=== PATIENT | male | born 1960 | race Caucasian/White ===

== ENCOUNTER → 2019-07-14 10:30 | Outpatient (BNVA) | payer MEDICARE, MEDICAID, SELFPAY | PROVIDERS: Family Provider Nurse Practitioner Family; PCP Nurse Practitioner Family; Visit Provider Nurse Practitioner | DX: M47.817 Spondylosis without myelopathy or radiculopathy, lumbosacral region (principal); M79.12 Myalgia of auxiliary muscles, head and neck; F17.210 Nicotine dependence, cigarettes, uncomplicated; Z79.891 Long term (current) use of opiate analgesic | CPT/HCPCS: 99213; 99214 ==

== ENCOUNTER → 2019-07-15 14:40 | Outpatient (BNVA) | payer MEDICARE, MEDICAID, SELFPAY | PROVIDERS: Family Provider Nurse Practitioner Family; PCP Nurse Practitioner Family; Visit Provider Otolaryngology | DX: J32.9 Chronic sinusitis, unspecified (principal); H93.13 Tinnitus, bilateral; H69.83 Other specified disorders of Eustachian tube, bilateral; J34.2 Deviated nasal septum; J34.3 Hypertrophy of nasal turbinates; H91.90 Unspecified hearing loss, unspecified ear; F17.210 Nicotine dependence, cigarettes, uncomplicated | CPT/HCPCS: 96372; 99214; J3301 ==

== ENCOUNTER → 2019-07-16 10:45 | Outpatient (BNVA) | payer MEDICARE, MEDICAID, SELFPAY | PROVIDERS: Family Provider Nurse Practitioner Family; PCP Nurse Practitioner Family; Visit Provider Nurse Practitioner Family | DX: I10 Essential (primary) hypertension (principal); K21.9 Gastro-esophageal reflux disease without esophagitis; F17.200 Nicotine dependence, unspecified, uncomplicated; J30.89 Other allergic rhinitis | CPT/HCPCS: 80053; 80061; 83721; 85025 ==

== ENCOUNTER 2019-08-18 10:31 | Outpatient (CLI) | payer MEDICARE, MEDICAID, SELFPAY ==
--- NOTE | 2019-08-18 10:15 | US_ITS ---
WS: [id number] ULTRASOUND SOFT TISSUES LEFT lower abdominal wall. HISTORY: LEFT LOWER QUAD PAIN, HERNIA COMPARISON: None available. TECHNIQUE: 2-D and color Doppler imaging is submitted. In the area of pain along the LEFT lower abdominal wall towards the inguinal canal is an area of part ially protruding bowel loop. There is peristalsis with a large amount shadowing and findings of GI tr act. There is peristalsis. There is only partial protrusion. Does not change with upright positioning . Diameter of the herniated bowel is 2.2 cm. US/US soft tissue/extremity 52023 IMPRESSION: 1. In the area of pain there is an abdominal wall defect with a partially prot ruding loop of bowel consistent with a hernia. The exact location is difficult to determine by ultrasound. This may be a lower abdominal wall hernia or inguin al canal hernia. 2. No GI tract obstruction or incarceration at this time.
== END 2019-08-18 10:32 | disposition home or self-care (01) ==
LOC: US 10:35
PROVIDERS: Family Provider Nurse Practitioner Family; PCP Nurse Practitioner Family; Visit Provider Nurse Practitioner Family
DX: K46.9 Unspecified abdominal hernia without obstruction or gangrene (principal); R10.32 Left lower quadrant pain; R10.814 Left lower quadrant abdominal tenderness
CPT/HCPCS: 76882

== ENCOUNTER → 2019-08-28 09:56 | Outpatient (BNVA) | payer MEDICARE, MEDICAID, SELFPAY | PROVIDERS: Family Provider Nurse Practitioner Family; PCP Nurse Practitioner Family; Visit Provider Nurse Practitioner | DX: B19.20 Unspecified viral hepatitis C without hepatic coma (principal) | CPT/HCPCS: 87522; 87902 ==

== ENCOUNTER → 2019-09-08 10:12 | Outpatient (BNVA) | payer MEDICARE, MEDICAID, SELFPAY | PROVIDERS: Family Provider Nurse Practitioner Family; PCP Nurse Practitioner Family; Visit Provider Anesthesiology | DX: Z76.89 Persons encountering health services in other specified circumstances (principal) ==

== ENCOUNTER 2019-11-03 16:19 | Emergency (ER) | payer MEDICARE, MEDICAID, SELFPAY ==
[2019-11-03 16:28] VITALS: BP 134/88; PULSE 71; RESP 16; TEMP 36.4; O2SAT 98; BMI 30.8
--- NOTE | 2019-11-03 17:01 | CTR_ITS ---
PROCEDURE INFORMATION: Exam: CT Abdomen And Pelvis With Contrast Exam date and time: 11/03/2019 5:15 PM Age: 59 years old Clinical indication: Other: Diarrhea/blood in stool; Abdominal pain; Localized; Left; Additional info: Abd pain TECHNIQUE: Imaging protocol: Computed tomography of the abdomen and pelvis with intravenous contrast. Radiation optimization: All CT scans at this facility use at least one of these dose optimization techniques: automated exposure control; mA and/or kV adjustment per patient size (includes targeted exams where dose is matched to clinical indication); or iterative reconstruction. Contrast material: OMNI 300; Contrast volume: 95 ml; Contrast route: IV; COMPARISON: CT Chest/Abdomen/Pelvis w IV* 07/28/2019 4:36 PM RADIATION DOSE METRICS: Total DLP: 1561.99 mGy-cm FINDINGS: Pleural space: There is a small right pleural effusion. Liver: Liver shows diffusely decreased density in keeping with fatty change. Gallbladder and bile ducts: The gallbladder is normal. Pancreas: The pancreas is normal. Spleen: The spleen is normal. Adrenals: The adrenal glands are normal. Kidneys and ureters: The kidneys are normal. There is no evidence of hydronephrosis. There is no evidence of renal or ureteral calcifications. Stomach and bowel: There is fluid seen through the length of the colon consistent with the history of diarrhea. There is mild mucosal thickening in the right colon and some haziness in the pericolonic fat especially around the hepatic flexure suggesting some nonspecific colitis. Correlation with clinical findings is suggested. Appendix: A normal appendix is identified. Intraperitoneal space: Unremarkable. No free air. No significant fluid collection. Vasculature: The aorta demonstrates mild atherosclerotic calcification. There is no evidence of an abdominal aortic aneurysm. Lymph nodes: Unremarkable. No enlarged lymph nodes. Bladder: Unremarkable as visualized. Reproductive: Unremarkable as visualized. Bones/joints: Unremarkable. No acute fracture. Soft tissues: Unremarkable. CT/CT abdomen pelvis w con* [id number] IMPRESSION: 1. Fatty liver 2. Mild colitis involving the right colon 3. Small right pleural effusion Radiation Dose CTDIVOL = (mGy): DLP = 1561.99 (mGy-cm)
--- NOTE | 2019-11-03 17:04 | ED_ITS ---
Documented by User: Obie Zaragoza DO 11/03/19 17:06 HPI - Abdominal Pain General: Chief Complaint: Abdominal Pain Stated Complaint: n/v/rectal bleeding Time Seen by Provider: 11/03/19 16:31 History of Present Illness: HPI narrative: Patient complains of left lower quadrant abdominal pain for several days. MD elicited complaint: abdominal pain Pertinent past history: diverticulitis and gastrointestinal bleeding Onset (ago): day(s) Pain Consistency: constant Location: LLQ Severity: severe Quality: stabbing, aching and sharp Radiation: none Migration to: no migration Exacerbating factors: movement Relieving factors: nothing Associated Symptoms: Reports diarrhea, nausea and vomiting Review of Systems General: Reports: 10 or more systems reviewed and unremarkable except in HPI and below GI: Reports: nausea, vomiting and diarrhea PFS ED PFSH: Medical History Anxiety Bilateral subjective nonpulsatile tinnitus without hearing loss, otoscopic find ing, neurologic deficit, or head trauma Chronic eustachian tube dysfunction Chronic neck and back pain COPD (chronic obstructive pulmonary disease) Encounter for long-term opiate analgesic use Environmental and seasonal allergies Essential hypertension Facet arthropathy, lumbosacral GERD (gastroesophageal reflux disease) Hearing loss Hepatitis C Hypertension Left lower quadrant abdominal pain Nasal turbinate hypertrophy Surgical History History of lymph node excision History of neck surgery Hx of hand surgery Status post colonoscopy Family History Father Pacemaker Other CAD (coronary artery disease) Cancer Denies family history of Anesthesia complication Bleeding disorder Social History Smoking and tobacco status: current every day smoker cigarettes Packs smoked per day: 1 Alcohol intake: never Lives independently: Yes History of recent travel: No Physical Exam Const: COMMON NORMALS: patient oriented x3, no limitations and alert GENERAL APPEARANCE: in distress (mild) HENMT: COMMON NORMALS: normocephalic HEAD & SCALP: normocephalic Neck/C-Spine: COMMON NORMALS: full ROM and no JVD Resp: COMMON NORMALS: normal respiratory effort, No use of accessory muscles and clear to auscultation bilaterally AUSCULTATION: clear to auscultation bilaterally Cardio: COMMON NORMALS: no JVD, regular rate and regular rhythm RATE: regular rate RHYTHM: regular rhythm GI: INSPECTION: Yes abdominal distension, Yes central obesity and Yes scaphoid AUSCULTATION: Yes normoactive bowel sounds PALPATION: Yes Firmness to palpation present (GI), Yes Tenderness to palpation present (GI), No Guarding due to palpation present (GI), No Rigid due to palpation, No Pulsatile mass present and No Ascites present Extremity: COMMON NORMALS: normal to inspection Neuro: COMMON NORMALS: patient oriented x3 SENSORIUM/ORIENTATION: Yes alert Skin: COMMON NORMALS: no rashes or lesions noted, turgor normal and no mottling GENERAL SKIN EXAM: no rashes or lesions noted and turgor normal Course Vital Signs: Vital signs: Vital Signs Temperature 98.8 F 11/03/19 19:27 Pulse Rate 82 11/03/19 19:27 Respiratory Rate 18 11/03/19 19:27 Blood Pressure 128/82 11/03/19 19:27 Pulse Oximetry 96 11/03/19 19:27 MDM - Abdominal Pain Lab Data: Labs: Lab Results 11/03/19 11/03/19 11/03/19 Range/Units 17:30 17:30 17:30 WBC 7.1 (4.0-10.0) 10^3/ uL RBC 4.61 (4.1-5.3) 10^6/u L Hgb 13.8 (11.7-16.6) g/dL Hct 42.9 (42.0-52.0) % MCV 93.1 (80-94) fL MCH 29.9 (28.0-34.0) pg MCHC 32.2 (30.0-36.0) g/dL RDW 13.2 (12.1-15.1) % Plt Count 244 (130-400) 10^3/c mm MPV 10.4 (7.4-10.4) fL Neut % (Auto) 70.2 % Lymph % (Auto) 20.1 % [place] % (Auto) 7.5 % Eos % (Auto) 1.3 % Baso % (Auto) 0.3 % Neut # (Auto) 5.0 (1.8-7.7) 10^3/u L Lymph # (Auto) 1.4 (0.8-4.8) 10^3/u L [place] # (Auto) 0.5 (0.2-0.9) 10^3/u L Eos # (Auto) 0.1 (0.0-0.8) 10^3/u L Baso # (Auto) 0.0 (0.0-0.1) 10^3/u L Nucleated RBC % (a uto) 0 % Nucleated RBCs # 0.0 /100WBC Sodium 136 (136-145) mmol/L Potassium 3.8 (3.5-5.1) mmol/L Chloride 99 (98-107) mmol/L Carbon Dioxide 23 (22-29) mmol/L Anion Gap 17.8 (5-19) BUN 12 (8-23) mg/dL Creatinine 1.5 H (0.7-1.2) mg/dL GFR Calculation 47.7 L (90-130) mL/min Glucose 126 H (65-115) mg/dL Calculated Osmolal ity 280 L (285-295) mOsm/k g Lactate 1.8 (0.5-2.2) mmol/L Calcium 9.3 (8.5-10.5) mg/dL Total Bilirubin 0.2 (0.15-1.2) mg/dL AST 43 H (0-40) U/L ALT 45 H (0-41) U/L Alkaline Phosphata se 68 (40-130) IU/L Total Protein 7.1 (6.6-8.7) g/dL Albumin 4.1 (3.5-5.2) g/dL Globulin 3.0 (1.3-4.6) g/dL Lipase 19 (13-60) U/L Urine Color (Yellow) Urine Appearance (CLEAR) Urine pH (5-7) Ur Specific Gravit y (1.005-1.030) Urine Protein (Negative) Urine Glucose (UA) (Normal) Urine Ketones (Negative) Urine Blood (Negative) Urine Nitrate (Negative) Urine Bilirubin (NEGATIVE) Urine Urobilinogen (Negative) mg/dL Ur Leukocyte Steph ase (Negative) Urine RBC (0-2) /hpf Urine WBC (0-5) /hpf Ur Squamous Epith Cells (0-5) Urine Bacteria (NONE) Hyaline Casts Fine Granular Cast s /lpf Urine Mucus 11/03/19 Range/Units 17:41 WBC (4.0-10.0) 10^3/ uL RBC (4.1-5.3) 10^6/u L Hgb (11.7-16.6) g/dL Hct (42.0-52.0) % MCV (80-94) fL MCH (28.0-34.0) pg MCHC (30.0-36.0) g/dL RDW (12.1-15.1) % Plt Count (130-400) 10^3/c mm MPV (7.4-10.4) fL Neut % (Auto) % Lymph % (Auto) % [place] % (Auto) % Eos % (Auto) % Baso % (Auto) % Neut # (Auto) (1.8-7.7) 10^3/u L Lymph # (Auto) (0.8-4.8) 10^3/u L [place] # (Auto) (0.2-0.9) 10^3/u L Eos # (Auto) (0.0-0.8) 10^3/u L Baso # (Auto) (0.0-0.1) 10^3/u L Nucleated RBC % (a uto) % Nucleated RBCs # /100WBC Sodium (136-145) mmol/L Potassium (3.5-5.1) mmol/L Chloride (98-107) mmol/L Carbon Dioxide (22-29) mmol/L Anion Gap (5-19) BUN (8-23) mg/dL Creatinine (0.7-1.2) mg/dL GFR Calculation (90-130) mL/min Glucose (65-115) mg/dL Calculated Osmolal ity (285-295) mOsm/k g Lactate (0.5-2.2) mmol/L Calcium (8.5-10.5) mg/dL Total Bilirubin (0.15-1.2) mg/dL AST (0-40) U/L ALT (0-41) U/L Alkaline Phosphata se (40-130) IU/L Total Protein (6.6-8.7) g/dL Albumin (3.5-5.2) g/dL Globulin (1.3-4.6) g/dL Lipase (13-60) U/L Urine Color Yellow (Yellow) Urine Appearance Hazy A (CLEAR) Urine pH 5 (5-7) Ur Specific Gravit y 1.015 (1.005-1.030) Urine Protein Neg (Negative) Urine Glucose (UA) Norm (Normal) Urine Ketones Negative (Negative) Urine Blood Neg (Negative) Urine Nitrate Negative (Negative) Urine Bilirubin Neg (NEGATIVE) Urine Urobilinogen Norm (Negative) mg/dL Ur Leukocyte Steph ase Negative (Negative) Urine RBC 0-4 H (0-2) /hpf Urine WBC None (0-5) /hpf Ur Squamous Epith Cells 0-4 H (0-5) Urine Bacteria Trace (NONE) Hyaline Casts 80-100 H Fine Granular Cast s 5-10 H /lpf Urine Mucus 1+ Discharge Plan Discharge Patient Disposition: Home, Self-Care Clinical Impression: Colitis Condition: Stable Prescriptions: New Flagyl 500 mg tablet 500 mg PO TID 10 Days Qty: 30 RF: 0 Cipro 500 mg tablet 500 mg PO BID Qty: 20 RF: 0 promethazine 25 mg tablet 25 mg PO Q4H PRN (Reason: nausea and vomiting) Qty: 20 RF: 0 No Action atenolol 50 mg tablet 50 mg PO DAILY 30 Days Qty: 30 RF: 5 furosemide 20 mg tablet 20 mg PO QAM 30 Days Qty: 30 RF: 5 omeprazole 20 mg capsule,delayed release(DR/EC) 20 mg PO BID 30 Days Qty: 60 RF: 5 fluticasone propionate [Flonase Allergy Relief] 50 mcg/actuation spray,suspension 1 spray INTRANASAL Q12H 30 Days Qty: 1 RF: 5 duloxetine 60 mg capsule,delayed release(DR/EC) 60 mg PO DAILY Qty: 30 RF: 1 gabapentin 800 mg tablet 800 mg PO TID Qty: 90 RF: 1 methocarbamol 750 mg tablet 750 mg PO TID Qty: 90 RF: 1 oxycodone 15 mg tablet 15 mg PO TID PRN (Reason: pain) 30 Days Qty: 90 RF: 0 albuterol sulfate [ProAir HFA] 90 mcg/actuation HFA aerosol inhaler 2 puff INHALATION Q6H PRN (Reason: Shortness Of Breath) RF: 0 nitroglycerin [Nitrostat] 0.4 mg tablet, sublingual 0.4 mg SUBLINGUAL Q5M PRN (Reason: Chest Pain) RF: 0 fenofibrate nanocrystallized [Tricor] 145 mg tablet 145 mg PO DAILY 30 Days Qty: 30 RF: 5 Discharge Orders: Discharge Order (Routine); Ordered 11/03/19 Ordered By: Karin Martinez Referrals: Niurka Castillo FNP-C [Primary Care Provider] - 1-3 days Discharge Diet: Clear Liquid Discharge Activity: Increase activity as tolerated Patient Instructions: Acute Diarrhea (ED), Infectious Colitis (ED) Activity Restrictions/Additional Instructions: Please return to the ER immediately for any of the signs or symptoms listed on your discharge instruction sheets, worsening/changing of your symptoms, you are not getting better as quickly as expected, or for ANY other cause or concerns. Return to the ER for increased pain, blood in your stools, fever, vomiting, or for any other cause for concern. Continue clear liquids and push fluids as much as possible. Return to the ER for any weakness, lightheadedness, you pass out or nearly pass out. Be certain to follow-up with your doctor this week for recheck. Discharge Date/Time: 11/03/19 20:26 Sign Out Sign Out Data: Patient Sign Out occurred on 11/03/19 at 18:04. Patient's care was discussed, and care was transferred from to Karin Martinez. Coding Level of Care Code ED Polymerization Supervisor for Chg Fwd Exam Comprehensive Documented by User: Karin Martinez 11/03/19 21:18 HPI - Abdominal Pain General: Chief Complaint: Abdominal Pain Stated Complaint: n/v/rectal bleeding Time Seen by Provider: 11/03/19 16:31 PFSH ED PFSH: Medical History Anxiety Bilateral subjective nonpulsatile tinnitus without hearing loss, otoscopic finding, neurologic deficit, or head trauma Chronic eustachian tube dysfunction Chronic neck and back pain COPD (chronic obstructive pulmonary disease) Encounter for long-term opiate analgesic use Environmental and seasonal allergies Essential hypertension Facet arthropathy, lumbosacral GERD (gastroesophageal reflux disease) Hearing loss Hepatitis C Hypertension Left lower quadrant abdominal pain Nasal turbinate hypertrophy Surgical History History of lymph node excision History of neck surgery Hx of hand surgery Status post colonoscopy Family History Father Pacemaker Other CAD (coronary artery disease) Cancer Denies family history of Anesthesia complication Bleeding disorder Social History Smoking and tobacco status: current every day smoker cigarettes Packs smoked per day: 1 Alcohol intake: never Lives independently: Yes History of recent travel: No Course Vital Signs: Vital signs: Vital Signs Temperature 98.8 F 11/03/19 19:27 Pulse Rate 82 11/03/19 19:27 Respiratory Rate 18 11/03/19 19:27 Blood Pressure 128/82 11/03/19 19:27 Pulse Oximetry 96 11/03/19 19:27 MDM - Abdominal Pain MDM Narrative: Medical decision making narrative: 1844 -Case turned over to me Dr. Martinez from Dr. Zaragoza at change of shift. Please see his note for his history, physical exam and medical decision-making notes. Patient was endorsed to me as abdominal pain on both sides worse on the left than right with a concern of diverticulitis. By my history the patient hurts diffusely but shows no sign of peritonitis on exam. He has no rebound tenderness or guarding. He states he is been having severe watery diarrhea for the past few days. He denies any fevers or chills and he has been nauseated but has not vomited. CT scan is showing mild colitis involving the right hemicolon, I suspect that he also has some left-sided involvement that is just not showing up on CT. I will treat him with Cipro and Flagyl, have him follow a clear liquid diet with Zofran for nausea and he agrees to follow-up with his doctor this week for recheck. The patient understands the reasons to return to the ER and I went through them with him extensively including the need to return for fever, worsening pain, blood in his stools, vomiting, or for any other concerns. He had a large amount of hyaline casts in his urine but is creatinine is only minimally elevated and he is tolerating p.o.'s here. I believe this will correct with further oral hydration at home. Patient does not describe any lightheadedness or dizziness with ambulation. Lab Data: Attestation: I reviewed the patient's lab results. Labs: Lab Results 11/03/19 11/03/19 11/03/19 Range/Units 17:30 17:30 17:30 WBC 7.1 (4.0-10.0) 10^3/ uL RBC 4.61 (4.1-5.3) 10^6/u L Hgb 13.8 (11.7-16.6) g/dL Hct 42.9 (42.0-52.0) % MCV 93.1 (80-94) fL MCH 29.9 (28.0-34.0) pg MCHC 32.2 (30.0-36.0) g/dL RDW 13.2 (12.1-15.1) % Plt Count 244 (130-400) 10^3/c mm MPV 10.4 (7.4-10.4) fL Neut % (Auto) 70.2 % Lymph % (Auto) 20.1 % [place] % (Auto) 7.5 % Eos % (Auto) 1.3 % Baso % (Auto) 0.3 % Neut # (Auto) 5.0 (1.8-7.7) 10^3/u L Lymph # (Auto) 1.4 (0.8-4.8) 10^3/u L [place] # (Auto) 0.5 (0.2-0.9) 10^3/u L Eos # (Auto) 0.1 (0.0-0.8) 10^3/u L Baso # (Auto) 0.0 (0.0-0.1) 10^3/u L Nucleated RBC % (a uto) 0 % Nucleated RBCs # 0.0 /100WBC Sodium 136 (136-145) mmol/L Potassium 3.8 (3.5-5.1) mmol/L Chloride 99 (98-107) mmol/L Carbon Dioxide 23 (22-29) mmol/L Anion Gap 17.8 (5-19) BUN 12 (8-23) mg/dL Creatinine 1.5 H (0.7-1.2) mg/dL GFR Calculation 47.7 L (90-130) mL/min Glucose 126 H (65-115) mg/dL Calculated Osmolal ity 280 L (285-295) mOsm/k g Lactate 1.8 (0.5-2.2) mmol/L Calcium 9.3 (8.5-10.5) mg/dL Total Bilirubin 0.2 (0.15-1.2) mg/dL AST 43 H (0-40) U/L ALT 45 H (0-41) U/L Alkaline Phosphata se 68 (40-130) IU/L Total Protein 7.1 (6.6-8.7) g/dL Albumin 4.1 (3.5-5.2) g/dL Globulin 3.0 (1.3-4.6) g/dL Lipase 19 (13-60) U/L Urine Color (Yellow) Urine Appearance (CLEAR) Urine pH (5-7) Ur Specific Gravit y (1.005-1.030) Urine Protein (Negative) Urine Glucose (UA) (Normal) Urine Ketones (Negative) Urine Blood (Negative) Urine Nitrate (Negative) Urine Bilirubin (NEGATIVE) Urine Urobilinogen (Negative) mg/dL Ur Leukocyte Steph ase (Negative) Urine RBC (0-2) /hpf Urine WBC (0-5) /hpf Ur Squamous Epith Cells (0-5) Urine Bacteria (NONE) Hyaline Casts Fine Granular Cast s /lpf Urine Mucus 05//20 Range/Units 17:41 WBC (4.0-10.0) 10^3/ uL RBC (4.1-5.3) 10^6/u L Hgb (11.7-16.6) g/dL Hct (42.0-52.0) % MCV (80-94) fL MCH (28.0-34.0) pg MCHC (30.0-36.0) g/dL RDW (12.1-15.1) % Plt Count (130-400) 10^3/c mm MPV (7.4-10.4) fL Neut % (Auto) % Lymph % (Auto) % [place] % (Auto) % Eos % (Auto) % Baso % (Auto) % Neut # (Auto) (1.8-7.7) 10^3/u L Lymph # (Auto) (0.8-4.8) 10^3/u L [place] # (Auto) (0.2-0.9) 10^3/u L Eos # (Auto) (0.0-0.8) 10^3/u L Baso # (Auto) (0.0-0.1) 10^3/u L Nucleated RBC % (a uto) % Nucleated RBCs # /100WBC Sodium (136-145) mmol/L Potassium (3.5-5.1) mmol/L Chloride (98-107) mmol/L Carbon Dioxide (22-29) mmol/L Anion Gap (5-19) BUN (8-23) mg/dL Creatinine (0.7-1.2) mg/dL GFR Calculation (90-130) mL/min Glucose (65-115) mg/dL Calculated Osmolal ity (285-295) mOsm/k g Lactate (0.5-2.2) mmol/L Calcium (8.5-10.5) mg/dL Total Bilirubin (0.15-1.2) mg/dL AST (0-40) U/L ALT (0-41) U/L Alkaline Phosphata se (40-130) IU/L Total Protein (6.6-8.7) g/dL Albumin (3.5-5.2) g/dL Globulin (1.3-4.6) g/dL Lipase (13-60) U/L Urine Color Yellow (Yellow) Urine Appearance Hazy A (CLEAR) Urine pH 5 (5-7) Ur Specific Gravit y 1.015 (1.005-1.030) Urine Protein Neg (Negative) Urine Glucose (UA) Norm (Normal) Urine Ketones Negative (Negative) Urine Blood Neg (Negative) Urine Nitrate Negative (Negative) Urine Bilirubin Neg (NEGATIVE) Urine Urobilinogen Norm (Negative) mg/dL Ur Leukocyte Steph ase Negative (Negative) Urine RBC 0-4 H (0-2) /hpf Urine WBC None (0-5) /hpf Ur Squamous Epith Cells 0-4 H (0-5) Urine Bacteria Trace (NONE) Hyaline Casts 80-100 H Fine Granular Cast s 5-10 H /lpf Urine Mucus 1+ Discharge Plan Discharge Patient Disposition: Home, Self-Care Clinical Impression: Colitis Condition: Stable Prescriptions: New Flagyl 500 mg tablet 500 mg PO TID 10 Days Qty: 30 RF: 0 Cipro 500 mg tablet 500 mg PO BID Qty: 20 RF: 0 promethazine 25 mg tablet 25 mg PO Q4H PRN (Reason: nausea and vomiting) Qty: 20 RF: 0 No Action atenolol 50 mg tablet 50 mg PO DAILY 30 Days Qty: 30 RF: 5 furosemide 20 mg tablet 20 mg PO QAM 30 Days Qty: 30 RF: 5 omeprazole 20 mg capsule,delayed release(DR/EC) 20 mg PO BID 30 Days Qty: 60 RF: 5 fluticasone propionate [Flonase Allergy Relief] 50 mcg/actuation spray,suspension 1 spray INTRANASAL Q12H 30 Days Qty: 1 RF: 5 duloxetine 60 mg capsule,delayed release(DR/EC) 60 mg PO DAILY Qty: 30 RF: 1 gabapentin 800 mg tablet 800 mg PO TID Qty: 90 RF: 1 methocarbamol 750 mg tablet 750 mg PO TID Qty: 90 RF: 1 oxycodone 15 mg tablet 15 mg PO TID PRN (Reason: pain) 30 Days Qty: 90 RF: 0 albuterol sulfate [ProAir HFA] 90 mcg/actuation HFA aerosol inhaler 2 puff INHALATION Q6H PRN (Reason: Shortness Of Breath) RF: 0 nitroglycerin [Nitrostat] 0.4 mg tablet, sublingual 0.4 mg SUBLINGUAL Q5M PRN (Reason: Chest Pain) RF: 0 fenofibrate nanocrystallized [Tricor] 145 mg tablet 145 mg PO DAILY 30 Days Qty: 30 RF: 5 Discharge Orders: Discharge Order (Routine); Ordered 11/03/19 Ordered By: Karin Martinez Referrals: Niurka Castillo FNP-C [Primary Care Provider] - 1-3 days Discharge Diet: Clear Liquid Discharge Activity: Increase activity as tolerated Patient Instructions: Acute Diarrhea (ED), Infectious Colitis (ED) Activity Restrictions/Additional Instructions: Please return to the ER immediately for any of the signs or symptoms listed on your discharge instruction sheets, worsening/changing of your symptoms, you are not getting better as quickly as expected, or for ANY other cause or concerns. Return to the ER for increased pain, blood in your stools, fever, vomiting, or for any other cause for concern. Continue clear liquids and push fluids as much as possible. Return to the ER for any weakness, lightheadedness, you pass out or nearly pass out. Be certain to follow-up with your doctor this week for recheck. Discharge Date/Time: 11/03/19 20:26 Sign Out Sign Out Data: Patient Sign Out occurred on 11/03/19 at 18:04. Patient's care was discussed, and care was transferred from to Karin Martinez. Coding Level of Care Code ED Polymerization Supervisor for Disha Fwd Exam Comprehensive
[2019-11-03] MEDS: sodium chloride 0.9% 1,000 ML 999 ML IV (17:10)
[2019-11-03 17:39] LABS: Basophils % 0.3 %; Eosinophils # 0.1 10^3/uL (0.0-0.8); Eosinophils % 1.3 %; Hematocrit 42.9 % (42.0-52.0); Hemoglobin 13.8 g/dL (11.7-16.6); Lymphocytes # 1.4 10^3/uL (0.8-4.8); Lymphocytes % 20.1 %; Mean Corpuscular HGB Conc 32.2 g/dL (30.0-36.0); Mean Corpuscular Hemoglobin 29.9 pg (28.0-34.0); Mean Corpuscular Volume 93.1 fL (80-94); Mean Platelet Volume 10.4 fL (7.4-10.4); Monocytes # 0.5 10^3/uL (0.2-0.9); Monocytes % 7.5 %; Neutrophils % 70.2 %; Nucleated Red Blood Cells % 0 %; Platelet Count 244 10^3/cmm (130-400); Red Blood Count 4.61 10^6/uL (4.1-5.3); Red Cell Distribution Width 13.2 % (12.1-15.1); White Blood Count 7.1 10^3/uL (4.0-10.0)
[2019-11-03 17:42] VITALS: RESP 16; O2SAT 98
[2019-11-03] MEDS: fentaNYL 50 mcg/mL INJ 2mL 25 MCG IVP (17:42)
[2019-11-03] MEDS: ondansetron 2 mg/ML SDV 2 mL 4 MG IVP (17:42)
[2019-11-03 17:58] LABS: Alanine Aminotransferase 45 U/L (0-41); Albumin Level 4.1 g/dL (3.5-5.2); Alkaline Phosphatase 68 IU/L (40-130); Anion Gap 17.8 (5-19); Aspartate Amino Transferase 43 U/L (0-40); Blood Urea Nitrogen 12 mg/dL (8-23); Calcium 9.3 mg/dL (8.5-10.5); Carbon Dioxide 23 mmol/L (22-29); Chloride 99 mmol/L (98-107); Glomerular Filtration Rate 47.7 mL/min (90-130); Glucose 126 mg/dL (65-115); Lipase 19 U/L (13-60); Osmolality Calculated 280 mOsm/kg (285-295); Potassium 3.8 mmol/L (3.5-5.1); Sodium 136 mmol/L (136-145); Total Bilirubin 0.2 mg/dL (0.15-1.2); Total Protein 7.1 g/dL (6.6-8.7)
[2019-11-03 17:59] LABS: Lactate (Lactic Acid level) 1.8 mmol/L (0.5-2.2)
[2019-11-03] MEDS: iohexol 300 mg/mL 100 mL Btl IV (18:00)
[2019-11-03 18:15] LABS: Add Urine Microscopic? YES; Bilirubin Urine Neg (NEGATIVE); Blood Urine Neg (Negative); Glucose Urine UA Norm (Normal); Ketones Urine Negative (Negative); Leukocyte Esterase Urine Negative (Negative); Nitrate Urine Negative (Negative); Protein Urine Neg (Negative); Specific Gravity, Urine 1.015 (1.005-1.030); Urine Appearance Hazy (CLEAR); Urine Color Yellow (Yellow); Urobilinogen Urine Norm (Negative); pH Urine 5 (5-7)
[2019-11-03 18:33] LABS: Hyaline Casts Urine 80-100
[2019-11-03 18:34] LABS: Bacteria Urine TRACE; Mucus Urine 1+; RBC Urine 0-4 /hpf (0-2); Squamous Epithelial Cell Urine 0-4 (0-5)
[2019-11-03] MEDS: piperacillin-tazobactam 3.375 GM in sodium chloride 0.9% (plus) 50 ML IV (19:14)
[2019-11-03] MEDS: ciprofloxacin 500 mg Tablet PO (19:15)
[2019-11-03] MEDS: metroNIDAZOLE 500 MG Tablet PO (19:15)
[2019-11-03 19:27] VITALS: BP 128/82; PULSE 82; RESP 18; TEMP 37.1; O2SAT 96
== END 2019-11-03 20:26 | disposition home or self-care (01) ==
PROVIDERS: Family Medicine; Emergency Provider Emergency Medicine; PCP Nurse Practitioner Family
DX: K52.9 Noninfective gastroenteritis and colitis, unspecified (principal); J44.9 Chronic obstructive pulmonary disease, unspecified; I10 Essential (primary) hypertension; Z86.19 Personal history of other infectious and parasitic diseases; F17.210 Nicotine dependence, cigarettes, uncomplicated
CPT/HCPCS: 12345; 36415; 74177; 80053; 81001; 83605; 83690; 85025; 87040; 96365; 96375; 99282; 99284; J2405; J2543; J3010; J7030; Q9967

== ENCOUNTER → 2019-12-24 07:57 | Outpatient (BNVA) | payer MEDICARE, MEDICAID, SELFPAY | PROVIDERS: PCP Nurse Practitioner Family; Visit Provider Anesthesiology | DX: G89.29 Other chronic pain (principal); M54.41 Lumbago with sciatica, right side; M54.42 Lumbago with sciatica, left side; M47.817 Spondylosis without myelopathy or radiculopathy, lumbosacral region; M54.9 Dorsalgia, unspecified; M54.2 Cervicalgia; M79.12 Myalgia of auxiliary muscles, head and neck; F17.210 Nicotine dependence, cigarettes, uncomplicated; Z79.891 Long term (current) use of opiate analgesic; Z71.6 Tobacco abuse counseling | CPT/HCPCS: 99214 ==

== ENCOUNTER → 2020-03-09 07:58 | Outpatient (BNVA) | payer MEDICARE, MEDICAID, SELFPAY | PROVIDERS: PCP Nurse Practitioner Family; Visit Provider Anesthesiology | DX: G89.29 Other chronic pain (principal); M47.817 Spondylosis without myelopathy or radiculopathy, lumbosacral region; M54.42 Lumbago with sciatica, left side; M54.41 Lumbago with sciatica, right side; M54.2 Cervicalgia; M54.9 Dorsalgia, unspecified; F17.210 Nicotine dependence, cigarettes, uncomplicated; Z79.891 Long term (current) use of opiate analgesic | CPT/HCPCS: 99213; 99214 ==

== ENCOUNTER → 2020-03-11 10:34 | Outpatient (BNVA) | payer MEDICARE, MEDICAID, SELFPAY | PROVIDERS: PCP Nurse Practitioner Family; Visit Provider Nurse Practitioner | DX: I10 Essential (primary) hypertension (principal); Z23 Encounter for immunization; E78.5 Hyperlipidemia, unspecified | CPT/HCPCS: 80053; 80061; 84443; 85025 ==

== ENCOUNTER → 2020-03-28 09:26 | Outpatient (BNVA) | payer MEDICARE, MEDICAID, SELFPAY | PROVIDERS: PCP Nurse Practitioner Family; Visit Provider Nurse Practitioner Family | DX: M25.532 Pain in left wrist (principal); M25.432 Effusion, left wrist | CPT/HCPCS: 73110 ==

== ENCOUNTER → 2020-04-28 07:59 | Outpatient (BNVA) | payer MEDICARE, MEDICAID, SELFPAY | PROVIDERS: PCP Nurse Practitioner Family; Visit Provider Anesthesiology | DX: G89.29 Other chronic pain (principal); M54.42 Lumbago with sciatica, left side; M54.41 Lumbago with sciatica, right side; M47.817 Spondylosis without myelopathy or radiculopathy, lumbosacral region; M54.9 Dorsalgia, unspecified; M54.2 Cervicalgia; F17.210 Nicotine dependence, cigarettes, uncomplicated; Z79.891 Long term (current) use of opiate analgesic | CPT/HCPCS: 99213; 99214 ==

== ENCOUNTER 2020-05-16 14:01 | Outpatient (CLI) | payer MEDICARE, MEDICAID, SELFPAY ==
--- NOTE | 2020-05-16 14:15 | US_ITS ---
WS: [id number] ULTRASOUND SOFT TISSUES RIGHT supraclavicular region. HISTORY: R22.1 - Localized swelling, mass and lump, neck COMPARISON: None available. TECHNIQUE: 2-D and color Doppler imaging is submitted. No soft tissue abnormality is identified in the area of interest. Normal subcutaneous soft tissue and fat. There are small lymph nodes. US/US soft tissue head neck [id number] IMPRESSION: Normal soft tissue ultrasound RIGHT supraclavicular region.
== END 2020-05-16 14:02 | disposition home or self-care (01) ==
LOC: US 14:02
PROVIDERS: PCP Nurse Practitioner Family; Visit Provider Nurse Practitioner Family
DX: R22.1 Localized swelling, mass and lump, neck (principal)
CPT/HCPCS: 76536

== ENCOUNTER → 2020-07-01 08:00 | Outpatient (BNVA) | payer MEDICARE, MEDICAID, SELFPAY | PROVIDERS: PCP Nurse Practitioner Family; Visit Provider Anesthesiology | DX: G89.29 Other chronic pain (principal); M47.817 Spondylosis without myelopathy or radiculopathy, lumbosacral region; M54.9 Dorsalgia, unspecified; M54.2 Cervicalgia; F17.210 Nicotine dependence, cigarettes, uncomplicated; Z79.891 Long term (current) use of opiate analgesic | CPT/HCPCS: 99214 ==

== ENCOUNTER → 2020-07-11 10:48 | Outpatient (BNVA) | payer MEDICARE, MEDICAID, SELFPAY | PROVIDERS: PCP Nurse Practitioner Family; Visit Provider Nurse Practitioner Family | DX: I10 Essential (primary) hypertension (principal); E78.5 Hyperlipidemia, unspecified; J44.9 Chronic obstructive pulmonary disease, unspecified; J30.89 Other allergic rhinitis; K21.9 Gastro-esophageal reflux disease without esophagitis; G47.34 Idiopathic sleep related nonobstructive alveolar hypoventilation; F17.200 Nicotine dependence, unspecified, uncomplicated; N28.9 Disorder of kidney and ureter, unspecified | CPT/HCPCS: 80053; 80061; 84443; 85025 ==

== ENCOUNTER → 2020-07-15 10:53 | Outpatient (BNVA) | payer MEDICARE, MEDICAID, SELFPAY | PROVIDERS: PCP Nurse Practitioner Family; Visit Provider Nurse Practitioner Family | DX: J02.9 Acute pharyngitis, unspecified (principal) | CPT/HCPCS: 87071; 87880 ==

== ENCOUNTER → 2020-09-02 07:54 | Outpatient (BNVA) | payer MEDICARE, MEDICAID, SELFPAY | PROVIDERS: PCP Nurse Practitioner Family; Visit Provider Anesthesiology | DX: G89.29 Other chronic pain (principal); M54.5 Low back pain; M54.9 Dorsalgia, unspecified; M47.817 Spondylosis without myelopathy or radiculopathy, lumbosacral region; M54.2 Cervicalgia; F17.210 Nicotine dependence, cigarettes, uncomplicated; Z79.891 Long term (current) use of opiate analgesic | CPT/HCPCS: 99214 ==

== ENCOUNTER 2020-09-07 12:00 | Outpatient (CLI) | payer MEDICARE, MEDICAID, SELFPAY | END 2020-09-07 12:01 | disposition home or self-care (01) | LOC: SLEEP 09-08 14:47 | PROVIDERS: PCP Nurse Practitioner Family; Visit Provider Internal Medicine Critical Care Medicine | DX: G47.10 Hypersomnia, unspecified (principal) | CPT/HCPCS: G0399 ==

== ENCOUNTER 2020-09-09 09:15 | Outpatient (CLI) | payer MEDICARE, MEDICAID, SELFPAY ==
--- NOTE | 2020-09-09 09:23 | CT_ITS ---
WS: [id number] LDCT LUNG CANCER SCREENING TECHNIQUE: Noncontrast CT of the chest with coronal and sagittal reformatted images. CLINICAL INFORMATION: NICOTINE DEPENDENCE,CIGARETTES COMPARISON: None. DLP: 47.46 mGy.cm DIvol: 1.[address] scans at [facility] use at least one of these dose optimization techniques: automat ed exposure control; mA and/or kV adjustment per patient size (includes targeted exams where dose is matched to clinical indication); or iterative reconstruction. FINDINGS: Mild chronic emphysematous changes.. Subsegmental atelectasis in the lung bases. Trace right pleural fluid. No focal pneumonia. No mediastinal or hilar lymphadenopathy. No axillary lymphadenopathy. Norm al GE junction. CT/CT lung screening [id number] IMPRESSION: LUNG-RADS: 1-Negative FOLLOW UP: 12 Month: Continue annual screening with LDCT
== END 2020-09-09 09:16 | disposition home or self-care (01) ==
LOC: CT 09:18
PROVIDERS: PCP Nurse Practitioner Family; Visit Provider Internal Medicine Critical Care Medicine
DX: Z12.2 Encounter for screening for malignant neoplasm of respiratory organs (principal); F17.210 Nicotine dependence, cigarettes, uncomplicated; J98.11 Atelectasis
CPT/HCPCS: 71271

== ENCOUNTER → 2020-09-15 13:38 | Outpatient (BNVA) | payer MEDICARE, MEDICAID, SELFPAY | PROVIDERS: PCP Nurse Practitioner Family; Visit Provider Internal Medicine Critical Care Medicine | DX: Z20.822 Contact with and (suspected) exposure to COVID-19 (principal); J44.9 Chronic obstructive pulmonary disease, unspecified | CPT/HCPCS: 87635 ==

== ENCOUNTER 2020-09-19 09:52 | Outpatient (CLI) | payer MEDICARE, MEDICAID, SELFPAY ==
--- NOTE | 2020-09-19 12:53 | PFTS_ITS ---
Date of Study:09/19/20 Date of Dictation: 09/20/2020 MECHANICS: Postbronchodilator forced vital capacity (FVC) is reduced. Postbronchodilator forced expiratory volume in one second (FEV1) is moderately reduced 59%. FEV1/FVC is reduced. There is no significant response to bronchodilator. FLOW VOLUME LOOP: Scooping of end expiratory limb suggestive of airway obstruction . LUNG VOLUMES: Total lung capacity (TLC) is mildly reduced 78% suggestive of mild restriction. Residual volume (RV) is normal. DIFFUSING CAPACITY FOR CARBON MONOXIDE: Moderately reduced 58% . INTERPRETATION: The spirometry are consistent with moderate obstructive ventilatory defect. Mild reduction in TLC suggestive mild restriction. Moderately reduced gas transfer. Correlate clinically. MTDD
== END 2020-09-19 09:53 | disposition home or self-care (01) ==
LOC: RT 09:55
PROVIDERS: PCP Nurse Practitioner Family; Visit Provider Internal Medicine Critical Care Medicine
DX: J44.9 Chronic obstructive pulmonary disease, unspecified (principal)
CPT/HCPCS: 94060; 94726; 94729; J7611

== ENCOUNTER 2020-10-19 20:00 | Outpatient (CLI) | payer MEDICARE, MEDICAID, SELFPAY | END 2020-10-19 20:01 | disposition home or self-care (01) | LOC: SLEEP 10-20 09:39 | PROVIDERS: PCP Nurse Practitioner Family; Visit Provider Internal Medicine Critical Care Medicine | DX: G47.33 Obstructive sleep apnea (adult) (pediatric) (principal) | CPT/HCPCS: 71046; 80053; 83880; 84484; 85025; 95811 ==

== ENCOUNTER 2020-10-20 18:41 | Inpatient (IN) | payer MEDICARE, MEDICAID, SELFPAY ==
--- NOTE | 2020-10-20 18:47 | XRR_ITS ---
PROCEDURE INFORMATION: Exam: XR Chest Exam date and time: 10/20/2020 6:51 PM Age: 60 years old Clinical indication: Pain; Chest pressure; Additional info: Cp TECHNIQUE: Imaging protocol: XR of the chest. Views: 1 view. Total images: 1 COMPARISON: No relevant prior studies available. FINDINGS: Lungs: No visible active interstitial or alveolar airspace disease. Pleural spaces: Unremarkable. No pleural effusion. No pneumothorax. Heart/Mediastinum: Cardiac structures and configuration unremarkable. Bones/joints: Previous cervical fusion. Old left rib fractures. XR/XR chest 1V portable [id number] IMPRESSION: Nonacute.
--- NOTE | 2020-10-20 18:48 | ECG_ITS ---
[facility] Test Date: 2020-10-20 Pat Name: Scar Lewis Department: Room: Gender: Male Charge Master Specialist: : 1960 Requested By: Stephanie Peterson Order Number: [id number] Chris MD: Miki Lawrence M.D. Measurements Intervals [place] Rate: 59 P: 62 ME: 192 QRS: 51 QRSD: 95 T: 48 QT: 416 QTc: 415 Interpretive Statements SINUS BRADYCARDIA WITH SINUS ARRHYTHMIA Compared to ECG 05/29/2018 17:12:08 Sinus rhythm no longer present T-wave abnormality no longer present Electronically Signed On 10-21-2020 21:55:33 CDT by Miki Lawrence M.D. [id number]
[2020-10-20 19:04] VITALS: BP 129/77; PULSE 78; RESP 22; TEMP 36.7; O2SAT 94; BMI 33.0
--- NOTE | 2020-10-20 20:48 | ECG_ITS ---
[facility] Test Date: 2020-10-20 Pat Name: Scar Lewis Department: Room: Gender: Male Ratings Analyst: : 1960 Requested By: Stephanie Peterson Order Number: [id number] Chris MD: Miki Lawrence M.D. Measurements Intervals [employer] Rate: 70 P: 57 KS: 188 QRS: 48 QRSD: 85 T: 61 QT: 385 QTc: 416 Interpretive Statements SINUS RHYTHM WITH SINUS ARRHYTHMIA Compared to ECG 05/29/2018 17:12:08 T-wave abnormality no longer present Electronically Signed On 10-21-2020 21:47:02 CDT by Miki Lawrence M.D. [id number] f
[2020-10-20 20:53] VITALS: BP 106/76; PULSE 74; RESP 18; O2SAT 91
[2020-10-20] MEDS: aspirin 81 mg Chew Tablet 324 MG PO (20:56)
[2020-10-20 20:57] LABS: Basophils % 0.1 %; Eosinophils % 0.2 %; Hematocrit 35.2 % (42.0-52.0); Hemoglobin 11.9 g/dL (11.7-16.6); Lymphocytes # 1.8 10^3/uL (0.8-4.8); Lymphocytes % 19.9 %; Mean Corpuscular HGB Conc 33.8 g/dL (30.0-36.0); Mean Corpuscular Hemoglobin 30.2 pg (28.0-34.0); Mean Corpuscular Volume 89.3 fL (80-94); Mean Platelet Volume 10.3 fL (7.4-10.4); Monocytes # 0.7 10^3/uL (0.2-0.9); Monocytes % 8.4 %; Neutrophils # 6.28 10^3/uL (1.8-7.7); Neutrophils % 71.3 %; Nucleated Red Blood Cells % 0 %; Platelet Count 293 10^3/cmm (130-400); Red Blood Count 3.94 10^6/uL (4.1-5.3); Red Cell Distribution Width 12.6 % (12.1-15.1); White Blood Count 8.8 10^3/uL (4.0-10.0)
[2020-10-20 21:16] LABS: Alanine Aminotransferase 55 U/L (0-41); Albumin Level 4.4 g/dL (3.5-5.2); Alkaline Phosphatase 56 IU/L (40-130); Anion Gap 13.3 (5-19); Aspartate Amino Transferase 95 U/L (0-40); Blood Urea Nitrogen 33 mg/dL (8-23); Calcium 8.7 mg/dL (8.5-10.5); Carbon Dioxide 27 mmol/L (22-29); Chloride 98 mmol/L (98-107); Globulin 2.2 g/dL (1.3-4.6); Glomerular Filtration Rate 41.2 mL/min (90-130); Glucose 121 mg/dL (65-115); Osmolality Calculated 287 mOsm/kg (285-295); Potassium 4.3 mmol/L (3.5-5.1); Sodium 134 mmol/L (136-145); Total Bilirubin 0.3 mg/dL (0.15-1.2); Total Protein 6.6 g/dL (6.6-8.7)
[2020-10-20 21:18] LABS: Troponin(5th) Baseline 23 ng/L (0-15)
[2020-10-20 21:32] VITALS: BP 95/65; PULSE 60; RESP 15; O2SAT 91
--- NOTE | 2020-10-20 21:53 | W.ED.CHESTPA ---
HPI - Chest Pain General: Chief Complaint: Chest Pain Stated Complaint: CHEST PAIN Time Seen by Provider: 10/20/20 20:25 Source: patient Mode of arrival: ambulatory Limitations: no limitations History of Present Illness: HPI narrative: 60-year-old male states has been having chest pain off and on over the last month with a getting much worse yesterday. States pain is been a pressure type pain in his left chest and currently rates a 2 out of 10. Is had some dyspnea with this as well. He has a history of high blood pressure and high cholesterol. Patient also a longtime smoker. Associated symptoms: Deny abdominal pain, dyspnea, fever(s), nausea or vomiting Review of Systems Const: Denies: fever(s), chills, body aches or change in appetite Eyes: Denies: blurry vision or eye discomfort ENMT: Denies: throat pain or dental pain Card: Reports: chest pain Resp: Denies: dyspnea GI: Denies: abdominal pain, nausea, vomiting or diarrhea : Denies: dysuria Musc: Denies: neck pain or back pain Skin/Breast: Denies: rash Neuro: Denies: headache(s) Psych: Denies: depression Eusebio/Lymph: Denies: easy bruising All/Imm: Denies: urticaria PFSH ED PFSH: Medical History Anxiety Bilateral subjective nonpulsatile tinnitus without hearing loss, otoscopic finding, neurologic deficit, or head trauma Chronic eustachian tube dysfunction Chronic neck and back pain COPD (chronic obstructive pulmonary disease) Dyslipidemia Encounter for long-term opiate analgesic use Environmental and seasonal allergies Essential hypertension Facet arthropathy, lumbosacral GERD (gastroesophageal reflux disease) Hearing loss Hepatitis C Hypertension Nasal turbinate hypertrophy Nocturnal hypoxemia Surgical History History of lymph node excision History of neck surgery Hx of hand surgery Status post colonoscopy Family History Father Pacemaker Other CAD (coronary artery disease) Cancer Denies family history of Anesthesia complication Bleeding disorder Social History Smoking and tobacco status: current every day smoker cigarettes Packs smoked per day: 0.5 Years cigarettes smoked: 30 [ Other cigarette details: Hx of 2 PPD x 30 years ] Quit status (tobacco): considering quitting Second hand smoke exposure: Yes Smoking risk assessment/counseling performed?: Yes Alcohol intake: never Counseling given: No Counseling given: No Lives independently: Yes Household members: spouse Marital status: Current occupational status: disabled History of recent travel: No Current gender identity: Male Physical Exam Const: COMMON NORMALS: no acute distress, patient oriented x3 and healthy appearing HENMT: COMMON NORMALS: normocephalic and atraumatic HEAD & SCALP: normocephalic and atraumatic Eye: COMMON NORMALS: Equal, round and reactive pupils present and EOMs intact bilaterally PUPIL: Yes Equal, round and reactive pupils present Neck/C-Spine: COMMON NORMALS: full ROM and supple Chest: COMMONS NORMALS: normal inspection of the chest and normal palpation of entire chest wall Resp: COMMON NORMALS: normal respiratory effort, No retractions, No use of accessory muscles and clear to auscultation bilaterally AUSCULTATION: clear to auscultation bilaterally Cardio: COMMON NORMALS: regular rate, regular rhythm and No murmurs present (Cardio) RATE: regular rate RHYTHM: regular rhythm GI: COMMON NORMALS: Normal to inspection, nondistended, normoactive bowel sounds present, Soft to palpation, non-tender and no masses PALPATION: Yes Soft to palpation Extremity: COMMON NORMALS: normal to inspection and full ROM Neuro: COMMON NORMALS: patient oriented x3, moves all extremities and no focal motor deficits Psych: COMMON NORMALS: mental status grossly normal, Normal thought process present and cooperative THOUGHT PROCESS: Normal thought process present Skin: COMMON NORMALS: no rashes or lesions noted and no wounds GENERAL SKIN EXAM: no rashes or lesions noted Course Vital Signs: Vital signs: Vital Signs Temperature 98.0 F 10/20/20 19:04 Pulse Rate 77 10/20/20 22:02 Respiratory Rate 16 10/20/20 22:02 Blood Pressure 160/94 10/20/20 22:02 Pulse Oximetry 95 10/20/20 22:02 MDM - Chest Pain MDM Narrative: Medical decision making narrative: Patient presents here with chest pain. Patient has multiple risk factors. His initial troponin here is very mildly elevated. His EKG is normal. He has been pain-free. Spoke to hospitalist will admit for observation. Lab Data: Labs: Lab Results 10/20/20 10/20/20 10/20/20 Range/Units 20:48 20:48 20:48 WBC 8.8 (4.0-10.0) 10^3/ uL RBC 3.94 L (4.1-5.3) 10^6/u L Hgb 11.9 (11.7-16.6) g/dL Hct 35.2 L (42.0-52.0) % MCV 89.3 (80-94) fL MCH 30.2 (28.0-34.0) pg MCHC 33.8 (30.0-36.0) g/dL RDW 12.6 (12.1-15.1) % Plt Count 293 (130-400) 10^3/c mm MPV 10.3 (7.4-10.4) fL Neut % (Auto) 71.3 % Lymph % (Auto) 19.9 % [place] % (Auto) 8.4 % Eos % (Auto) 0.2 % Baso % (Auto) 0.1 % Neut # (Auto) 6.28 (1.8-7.7) 10^3/u L Lymph # (Auto) 1.8 (0.8-4.8) 10^3/u L [place] # (Auto) 0.7 (0.2-0.9) 10^3/u L Eos # (Auto) 0.0 (0.0-0.8) 10^3/u L Baso # (Auto) 0.0 (0.0-0.1) 10^3/u L Nucleated RBC % (a uto) 0 % Nucleated RBCs # 0.0 /100WBC Sodium 134 L (136-145) mmol/L Potassium 4.3 (3.5-5.1) mmol/L Chloride 98 (98-107) mmol/L Carbon Dioxide 27 (22-29) mmol/L Anion Gap 13.3 (5-19) BUN 33 H (8-23) mg/dL Creatinine 1.7 H (0.7-1.2) mg/dL GFR Calculation 41.2 L (90-130) mL/min Glucose 121 H (65-115) mg/dL Calculated Osmolal ity 287 (285-295) mOsm/k g Calcium 8.7 (8.5-10.5) mg/dL Total Bilirubin 0.3 (0.15-1.2) mg/dL AST 95 H (0-40) U/L ALT 55 H (0-41) U/L Alkaline Phosphata se 56 (40-130) IU/L Troponin T Baselin e 23 H (0-15) ng/L Total Protein 6.6 (6.6-8.7) g/dL Albumin 4.4 (3.5-5.2) g/dL Globulin 2.2 (1.3-4.6) g/dL Imaging Data^: CXR: Attestation: I personally reviewed and interpreted this imaging study as follows: My impression: no acute abnormality EKG Data^: EKG 1: Attestation: I personally reviewed and interpreted this EKG as follows: EKG interpretation date: 10/20/20 EKG interpretation time: 19:02 Interpretation: nsr hr [address] or t wave abnormalities qrs 85 qtc 405 EKG 2: Attestation: I personally reviewed and interpreted this EKG as follows: EKG interpretation date: 10/20/20 EKG interpretation time: 21:09 Interpretation: sinus abilio hr [address] or t wave abnormalities qrs 95 qtc 416 Discharge Plan Discharge Prescriptions: No Action oxycodone 15 mg tablet 15 mg PO QID PRN (Reason: pain) 30 Days Qty: 105 RF: 0 fluticasone propionate [Flonase Allergy Relief] 50 mcg/actuation spray,suspension 1 spray INTRANASAL Q12H 30 Days Qty: 1 RF: 5 nitroglycerin [Nitrostat] 0.4 mg tablet, sublingual 0.4 mg SUBLINGUAL Q5M PRN (Reason: Chest Pain) RF: 0 Bevespi Aerosphere 9-4.8 mcg HFA aerosol inhaler 2 puff inhalation BID Qty: 10.7 RF: 3 albuterol sulfate 90 mcg/actuation HFA aerosol inhaler 2 puff inhalation Q6H PRN (Reason: shortness of breath or wheezing) 30 Days Qty: 8.5 RF: 3 promethazine 25 mg tablet 25 mg PO Q4H PRN (Reason: nausea and vomiting) Qty: 20 RF: 0 prednisone 20 mg tablet 20 mg PO BID@0800,2000 RF: 0 atenolol 25 mg tablet 25 mg PO DAILY@0800 RF: 0 gabapentin 800 mg tablet 800 mg PO TID@08,, RF: 0 omeprazole 20 mg capsule,delayed release(DR/EC) 20 mg PO BID@0800,1999 RF: 0 furosemide 20 mg tablet 20 mg PO DAILY@0800 RF: 0 Tricor 145 mg tablet 145 mg PO DAILY@0800 RF: 0 Coding Level of Care Code ED Rug Cleaner Helper for Chg Fwd Exam Comprehensive
[2020-10-20 22:02] VITALS: BP 160/94; PULSE 77; RESP 16; O2SAT 95
[2020-10-20 23:20] VITALS: BP 120/65; PULSE 67; RESP 16; O2SAT 92
[2020-10-20 23:23] LABS: Troponin 5 2HR 18.52 ng/L (0-15)
[2020-10-20 23:26] LABS: Troponin 5 2HR Delta -4.48 ABS# (0-10)
[2020-10-20 23:31] VITALS: BP 126/81; PULSE 60; RESP 16; TEMP 36.8; O2SAT 94
[2020-10-21] VITALS (22 sets, daily range): BP systolic 115–174; BP diastolic 64–95; PULSE 47–66; RESP 8–20; TEMP 36.4–36.8; O2SAT 92–97
[2020-10-21] MEDS: oxyCODONE 5 mg IR Tab/Cap 15 MG PO ×4 (00:43→21:36)
[2020-10-21 01:21] LABS: Troponin 5 6HR 18.26 ng/L (0-15); Troponin 5 6HR Delta -4.74 ng/L (0-12)
--- NOTE | 2020-10-21 04:34 | PM.HP ---
Providers/Chief Complaint Admitting Physician: Leydi García MD Primary Care Provider: STEPHANIA Lowery-Rachel Chief Complaint: CHEST PAIN History of Present Illness Scar Lewis is a 60 year old male Past medical history as outlined below, recently diagnosed to have obstructive sleep apnea and COPD, started on supplemental O2, was at the sleep center to undergo a sleep titration study when he suddenly started developing left-sided chest pain. States the pain was a sharp stabbing sensation approximately 6 out of 10 in intensity which made him extremely uncomfortable. The pain did not radiate anywhere. Associated with shortness of breath. Pain was relieved within about a minute or so. No associated diaphoresis nausea or vomiting. Reports awake epigastric discomfort additionally. His pain brought him to the ER. EKG without any acute ST-T wave changes. Troponin series without significant delta's. Patient still quite anxious about the nature of this pain. He has never had a stress test or angiogram in the past. No known history of coronary artery disease. He has never had a similar episode in the past, however reports increasing shortness of breath over the last 1 month or so. No recent echocardiogram on file. no LE edema noted Review of Systems General: Reports: 10 or more systems reviewed and unremarkable except in HPI and below Const: Denies: fever(s), chills or body aches Eyes: Denies: change in vision, blurry vision or photophobia ENMT: Reports: hoarseness; Denies: throat pain, enlarged tonsils, odynophagia or nasal congestion Card: Denies: chest pain, palpitations, irregular heart rhythm, edema, swelling of feet/ankles, lightheadedness, pre-syncope, dyspnea on exertion or orthopnea Resp: Denies: dyspnea, productive cough, non-productive cough, wheezing, stridor, pain on inspiration, change in phlegm color, hemoptysis or chest congestion GI: Denies: abdominal pain, nausea, vomiting, hematemesis, coffee ground emesis, dysphagia, heartburn, diarrhea, constipation, GI cramping, change in stool character, hematochezia or melena : Denies: flank pain, dysuria, urinary frequency, urinary urgency, urinary hesitancy or hematuria Musc: Denies: neck pain, back pain, extremity pain, joint swelling, joint warmth or deformity Neuro: Denies: headache(s), numbness in extremities, weakness in extremities, sensory changes, difficulty walking, frequent falls, dizziness, vertigo, behavioral changes, Slurred speech present or seizure-like activity Psych: Denies: anxiety, depression, suicidal ideation or homicidal ideation Endo: Denies: polyuria, polydipsia, tired all the time, cold intolerance or hot flashes Eusebio/Lymph: Denies: easy bruising or easy bleeding Medications/Allergies Home Medications Medication Instructions Recorded Confirmed Last Taken Type nitroglycerin 0.4 mg sublingual 0.4 mg SUBLINGUAL Q5M PRN 06/21/19 10/20/20 Unknown History tablet promethazine 25 mg PO Q4H PRN #20 tab 11/03/19 10/20/20 10/20/20 Rx fluticasone propionate 50 1 spray INTRANASAL Q12H 30 Days #1 07/11/20 10/20/20 10/20/20 Rx mcg/actuation nasal each spray,suspension albuterol sulfate 90 mcg/actuation 2 puff INHALATION Q6H PRN 30 Days 08/29/20 10/20/20 10/20/20 Rx aerosol inhaler #8.5 g glycopyrrolate 9 mcg-formoterol 2 puff INHALATION BID #10.7 g 08/29/20 10/20/20 10/20/20 Rx 4.8 mcg HFA aerosol inhaler oxycodone 15 mg tablet 15 mg PO QID PRN 30 Days #105 tab 09/02/20 10/20/20 10/20/20 Rx Tricor 145 mg PO DAILY@0800 10/20/20 10/20/20 10/20/20 History atenolol 25 mg PO DAILY@0800 10/20/20 10/20/20 10/20/20 History furosemide 20 mg PO DAILY@0800 10/20/20 10/20/20 10/20/20 History gabapentin 800 mg PO TID@,,10/20/20 10/20/20 10/20/20 History omeprazole 20 mg PO BID@0800,199910/20/20 10/20/20 10/20/20 History prednisone 20 mg PO BID@0800,199910/20/20 10/20/20 10/20/20 History Allergies Allergy/AdvReac Type Severity Reaction Status Date / Time No Known Allergies Allergy Verified 10/19/20 10:50 PFSH Acute PFSH: Medical History (Updated 10/21/20 @ 04:55 by Leydi García MD) Anxiety Bilateral subjective nonpulsatile tinnitus without hearing loss, otoscopic finding, neurologic deficit, or head trauma Chronic eustachian tube dysfunction Chronic neck and back pain COPD (chronic obstructive pulmonary disease) Dyslipidemia Encounter for long-term opiate analgesic use Environmental and seasonal allergies Essential hypertension Facet arthropathy, lumbosacral GERD (gastroesophageal reflux disease) Hearing loss Hepatitis C Hypertension Nasal turbinate hypertrophy Nocturnal hypoxemia Surgical History History of lymph node excision History of neck surgery Hx of hand surgery Status post colonoscopy Family History Father Pacemaker Other CAD (coronary artery disease) Cancer Denies family history of Anesthesia complication Bleeding disorder Social History Smoking and tobacco status: current every day smoker cigarettes Packs smoked per day: 0.5 Years cigarettes smoked: 30 [ Other cigarette details: Hx of 2 PPD x 30 years ] Quit status (tobacco): considering quitting Second hand smoke exposure: Yes Smoking risk assessment/counseling performed?: Yes Alcohol intake: never Counseling given: No Counseling given: No Lives independently: Yes Household members: spouse Marital status: Current occupational status: disabled History of recent travel: No Current gender identity: Male Vitals/I&O/Wt Last Vital Signs Temp 98.2 F 10/21/20 03:52 Pulse 65 10/21/20 03:52 Resp 18 10/21/20 03:52 BP 115/64 10/21/20 03:52 Pulse Ox 97 10/21/20 03:52 10/20/20 10/20/20 10/21/20 14:59 22:59 06:59 Output Total 800 / 800 Balance -800 / -800 Weight last 48 hrs Weight 109.225 kg Weight 104.326 kg Physical Exam Narrative: EXAM NARRATIVE: General: No acute distress, AO x3 HEENT: PERRLA, pupils bilaterally equal and reactive, pallors not present Chest: Normal vesicular breath sounds, no added sounds, equal good air entry bilaterally CVS: S1-S2 regular, no murmurs, no tachycardia, no gallops, no rubs Abdomen: Soft, nontender, no organomegaly, bowel sounds present Neuro: No focal deficits, no facial deformity, AO x3, power 5/5 in all limbs Extremities: no clubbing, cyanosis or edema Data : 10/20/20 20:48 10/20/20 20:48 A&P Assessment and plan (1) Chest pain: Started at rest today, has been reporting intermittent chest discomfort over the past month, unrelated to exertion. Multiple risk factors for cardiac disease, cannot exclude angina EKG without acute St-T wave changes Troponin series without significant delta EVlaute with stress test in am Check D dimer, if elevated may need further evaluation for PE, though this seems likely given resolved pain, saturation at 97% on recent baseline of 2lpm, no tachycardia. Avoiding contrast given cr at 1.7, appears to be baseline Echocardiogram given worsening dyspnea over the past month , estimate right side pressure additionally Status: Acute Qualifiers: Chest pain type: unspecified Qualified Code(s): R07.9 - Chest pain, unspecified (2) Obstructive sleep apnea: planned to get a titration study as outpatient to assess for Bipap need Status: Acute (3) COPD (chronic obstructive pulmonary disease): not currently exacerbated Duoneb q4h + budesonide 0.5 BID Status: Chronic Qualifiers: COPD type: unspecified COPD Qualified Code(s): J44.9 - Chronic obstructive pulmonary disease, unspecified Additional A&P Information DVT ppx: low risk Full code Attestations Medical Necessity Statement*: observation, less than 2 midnight anticipated to complete stress test, echocardiogram and review of results Coding Level of Care Code Acute Commercial Relief Driver for Chg Fwd Diagnoses Chest pain R07.9 Chest pain type: unspecified Obstructive sleep apnea G47.33 COPD (chronic obstructive pulmonary disease) J44.9 COPD type: unspecified COPD
--- NOTE | 2020-10-21 04:35 | ECG_ITS ---
[facility] Test Date: 2020-10-21 Pat Name: Scar Lewis Department: Room: 102 Gender: Male Turkish Line Attendant: : 1960 Requested By: Leydi García Order Number: [id number] Chris MD: Candice Iniguez M.D. Interpretive Statements NAME OF STUDY: LEXISCAN SESTAMIBI STRESS TEST INDICATION: Chest Pain; Angina PROCEDURE: At the baseline, the blood pressure was 144/82 mmHg, oxygen saturation 94% with a heart rate of 43 bpm. The electrocardiogram showed sinus bradycardia, normal axis with normal ST-T's. The Lexiscan was infused over a period of 20 seconds. A total of 0.4 milligrams of Lexiscan was infused. The stress phase was continued for a total of 5 minutes. Heart rate at the end of the stress phase was 63 bpm, oxygen saturation 93% with a blood pressure of 163/89 mmHg. The EKG at the peak infusion revealed sinus rhythm at 63 bpm with no significant ST-T wave changes. Sestamibi was injected 20 seconds after the Lexiscan infusion. Blood pressure at the end of the recovery phase was 167/86 mmHg, oxygen saturation 91% with a heart rate of 59 beats per minute. CONCLUSION: 1. Normal EKG response to LexiScan infusion 2. No LexiScan induced chest pain or cardiac arrhythmia. 3. Normal blood pressure and heart rate response. 4. Sestamibi/sestamibi perfusion scan pending; see separate report. Electronically Signed On 10-21-2020 14:20:17 CDT by Candice Iniguez M.D. [id number]
--- NOTE | 2020-10-21 04:36 | NMCV_ITS ---
NM joo perf SPECT r/s* [id number] Scar Lewis Age: 60 Gender: M : 1960 Exam Date: 10/21/2020 06:50 Ordering Phys: Leydi García MD Technologist: BRADFORD Flynn Exam Location: [facility] Indications: CHEST PAIN STRESS TEST Please see separate stress test report in [facility] for full findings IMAGE PROTOCOL Rest/Stress 1 Lexiscan Day Radiopharmaceutical Dose (mCi) Administration Site Administered by Rest: Tc-99m 11.0 IV BRADFORD You Sestamibi Stress:Tc-99m 32.7 IV BRADFORD Flynn Sestamiflorinda Rest: 21-Oct-2020 60 Discovery 630 Stress: 21-Oct-2020 30 Discovery 630 0.4mg Lexiscan. Images obtained in supine and prone position. SPECT RESULTS Technical Quality: Excellent Raw Data Analysis: Normal Image Corrections: No attenuation or motion correction applied Summed Stress Score: 0 Summed Rest Score: 1 Summed Difference Score: 0 PERFUSION FINDINGS Mild size perfusion abnormality of mild severity of basal anterior, basal to apical inferior agustin on rest images with subtle reversibility in apical lateral wall on supine stress images with improved tracer uptake in prone stress images. FUNCTIONAL RESULTS (calculated via Gated SPECT) Stress Image LV EF (%): 73 Stress EDV (mL):108 TID: 0.96 Stress ESV (mL):29 FUNCTIONAL FINDINGS: The left ventricle is normal in size. Transient Ischemia Dilatation of 0.96. There is normal left ventricular systolic function. The left ventricular ejection fraction is normal with a value of 73%. There is normal left ventricular wall thickening with no regional wall motion abnormality. Normal end-diastolic and end-systolic volumes. IMPRESSIONS 1. Myocardial perfusion imaging is normal. Attenuation artifact noted in inferior and basal anterior agustin. 2. Overall left ventricular systolic function is normal without regional wall motion abnormalities. 3. The left ventricular ejection fraction is normal with a value of 73%. 4. Normal EKG response to Lexiscan infusion. Please refer to separate report for details. 5. No prior similar studies to compare. Candice Iniguez MD (Electronically Signed) Final Date: 21 Oct 2020 14:28 S
--- NOTE | 2020-10-21 04:47 | USCV_ITS ---
Debbie Scar Age: 60 Gender: M : 1960 Exam Date: 10/21/2020 06:27 Ordering Phys: Leydi García MD Technologist: Misty Sevilla Exam Location: [facility] Indication: CHEST PAIN AND SOB BP: 115 / 64 HR: 53 Rhythm: Sinus Technical Quality: Adequate MEASUREMENTS (Male / Female) Normal Values 2D ECHO LV Diastolic Diameter PLAX 2.8 cm 4.2 - 5.9 / 3.9 - 5.3 cm LV Systolic Diameter PLAX 2.0 cm LV Chamber Size 2.9 cm IVS Diastolic Thickness 1.5 cm 0.6 - 1.0 / 0.6 - 0.9 cm IVS Systolic Thickness 1.8 cm LVPW Diastolic Thickness 1.6 cm 0.6 - 1.0 / 0.6 - 0.9 cm LVPW Systolic Thickness 1.2 cm RV Chamber Size 2.6 cm LVOT Diameter 2.0 cm LV Ejection Fraction 2D Teich 53.6 % LV Ejection Fraction MOD 2C 67.3 % LV Ejection Fraction 2C AL 70.3 % LA Diameter 3.8 cm LA Width 3.2 cm LA Height 5.4 cm RA Width 3.8 cm RA Height 4.7 cm Aorta at Sinotubular Diameter 3.3 cm M-MODE LV Diastolic Diameter MM 4.5 cm 4.2 - 5.9 / 3.9 - 5.3 cm LV Systolic Diameter MM 2.9 cm LV Ejection Fraction MM Teich 65.4 % IVS Diastolic Thickness MM 1.0 cm 0.6 - 1.0 / 0.6 - 0.9 cm IVS Systolic Thickness MM 1.4 cm LVPW Diastolic Thickness MM 1.2 cm 0.6 - 1.0 / 0.6 - 0.9 cm LVPW Systolic Thickness MM 1.7 cm RV Diastolic Diameter MM 0.9 cm Aortic Annulus Diameter 3.7 cm LA Ao Ratio MM 1.0 MV E Point Septal Separation 0.1 cm DOPPLER AV Peak Velocity 132.0 cm/s LVOT Peak Velocity 109.0 cm/s AV Area Cont Eq vti 2.9 cm squared AV Area Cont Eq pk 2.7 cm squared MV Area PHT 2.7 cm squared Mitral E to A Ratio 1.4 MV E' Velocity 54.0 cm/s Mitral E to MV E' Ratio 8.5 Mitral E to LV E' Lateral Ratio 9.1 Mitral E to LV E' Septal Ratio 8.0 TR Peak Velocity 242.6 cm/s TR Peak Gradient 23.5 mmHg TR Mean Velocity 176.6 cm/s TR Mean Gradient 14.2 mmHg TR Velocity Time Integral 75.6 cm TV Peak E Velocity 63.0 cm/s Right Atrial Pressure 3.0 mmHg Pulmonary Artery Systolic Pressu 26.5 mmHg PV Peak Velocity 51.0 cm/s RV Acceleration Time 0.1 s RV Ejection Time 0.4 s RV AcT/ET 0.3 FINDINGS Left Ventricle Normal left ventricular size and systolic function, EF 71 %. No regional wall motion abnormalities. Mild concentric left ventricular hypertrophy . possibly normal diastolic function. Right Ventricle The right ventricle is normal in size and function. Right Atrium Mildly increased right atrial size. Left Atrium The left atrium is normal in size. Mitral Valve Trace mitral valve regurgitation. Aortic Valve No gross abnormalities no Tricuspid Valve Mild tricuspid valve regurgitation. Pulmonic Valve Pulmonic valve not well visualized. Pericardium Normal pericardium without effusion. Aorta Normal ascending aorta dimension. CONCLUSIONS Normal left ventricular size and systolic function, EF 71 %. No regional wall motion abnormalities. Mild concentric left ventricular hypertrophy . Possibly normal diastolic function. Mild tricuspid valve regurgitation. Trace mitral valve regurgitation. There is no pericardial effusion. There are no intracardiac masses. No previous study is available for comparison. Dr Justyn Forbes MD [facility] (Electronically Signed) Final Date: 21 Oct 2020 18:09 S
[2020-10-21] MEDS: regadenoson 0.4 Mg/5 ml Syringe IVP (07:48)
--- NOTE | 2020-10-21 08:19 | USCV_ITS ---
Scar Lewis Age: 60 Gender: M : 1960 Exam Date: 10/21/2020 14:03 Ordering Phys: Coleman Bautista MD Technologist: DOMENICO Exam Location: [facility] [place] Indication: ASSESS FOR VTE HISTORY: DVT. PROCEDURES: Venous duplex imaging was performed in bilateral lower extremities. The following venous structures were evaluated: common femoral vein, profunda vein, proximal portion of the greater saphenous vein, superficial femoral vein, and the popliteal vein. In addition, the posterior tibial and peroneal trunk were evaluated. Serial compression, augmentation maneuvers, and spectral Doppler flow evaluation were performed. FINDINGS: Normal 2-D Doppler and augmentation and compressibility throughout the lower extremity venous structures. Additional imaging through the proximal calf veins also reveals no thrombus. Limited evaluation of the greater saphenous vein is patent with no thrombus. CONCLUSIONS No DVT bilateral lower extremities. Dr. Flora Rodriguez DO (Electronically Signed) Final Date: 21 Oct 2020 16:08 S
[2020-10-21] MEDS: fenofibrate 145 mg Tablet PO (09:01)
[2020-10-21] MEDS: predniSONE 20 mg Tablet PO ×2 (09:02→19:47)
[2020-10-21] MEDS: gabapentin 400 mg Capsule 800 MG PO ×3 (09:02→19:47)
[2020-10-21] MEDS: FUROsemide 20 mg Tablet PO (09:03)
[2020-10-21] MEDS: pantoprazole DR 40 mg Tablet PO ×2 (09:03→19:47)
[2020-10-21] MEDS: budesonide 0.5 mg/2 mL Neb INHALATION ×2 (09:07→20:46)
[2020-10-21] MEDS: ipratropium-albuterol 3 mL Neb INHALATION ×3 (09:07→20:46)
--- NOTE | 2020-10-21 12:04 | PC.CHAP ---
Pastoral Care Encounter/Spiritual Assessment Type of Contact [] Declined screen vent binder visit [] Patient/Family/Request visit [] Outpatient visit [] Follow-up visit [] Physician referral [] Code/Alert [] Routine visit [] Staff referral [] Actively dying [] Patient sleeping [] Family support [] [xx] Out of room [] Palliative care [] [] Receiving care in room [] Pre-surgical visit [] Trauma [] Long length of stay [] ICU visit [] Other: Relational/Emotional Strength [] Patient feels connected with others/family/visitors/staff [] Distress [] Loneliness/isolation [] Abandonment Spirituality of Patient [] Person of Brittanie [] Attends Religion of their Brittanie [] Believes in Prayer [] Reads Bible or Muslim materials [] There are Spiritual issues to be addressed Software Testing Specialist Interventions [] Prayer [] Active listening [] Non-anxious presence [] Spiritual/emotional support [] Crisis/trauma care [] Spiritual counseling [] Bereavement support [] Provided bereavement packet [] Provided Bible/devotional materials [] Provided toy/stuffed animal, coloring book to patient or family member [] Provided Communion [] Anointing/Stout [] Salvation [] Completed spiritual assessment [] Other: Impact on Illness or Injury [] Angry [] Fearful [] Anxious [] Often cries [] Exhaustion [] Unable to work [] Unable to attend alevism [] Unable to walk/stand [] Unable to read [] Unable to drive [] Unable to eat/drink [] Unable to sleep [] Unable to be with family [] Patient intubated [] Other: Summary Follow up needed Time spent with patient
[2020-10-21] MEDS: fluticasone nasal spray 16gm Btl 1 SPRAY INTRANASAL ×2 (13:49→19:48)
--- NOTE | 2020-10-21 18:06 | PM.PN ---
Subjective Subjective: Interval history: Currently no chest pain. Walked out of the room and into the hallway. Got dyspneic with exertion. Denies cough. Not short of breath at rest. Denies chest pain during stress test. Vitals/I&O/Wt Last Vital Signs Temp 97.6 F 10/21/20 15:39 Pulse 65 10/21/20 15:39 Resp 16 10/21/20 15:39 BP 126/82 10/21/20 15:39 Pulse Ox 94 10/21/20 15:39 10/21/20 10/21/20 10/21/20 06:59 14:59 22:59 Intake Total 1000 / 1000 960 / 960 Output Total 1200 / 1200 320 / 320 Balance -200 / -200 640 / 640 Weight last 48 hrs Weight 109.225 kg Weight 104.326 kg Physical Exam Const: COMMON NORMALS: no acute distress and patient oriented x3 HENMT: COMMON NORMALS: oropharynx normal Neck/C-Spine: COMMON NORMALS: no JVD Resp: COMMON NORMALS: normal respiratory effort and clear to auscultation bilaterally AUSCULTATION: clear to auscultation bilaterally and diminished lung sounds (minimally) Cardio: COMMON NORMALS: no JVD, regular rhythm, S1 normal heart sound present, S2 normal heart sound present and No murmurs present (Cardio) RHYTHM: regular rhythm HEART SOUNDS: S1 normal heart sound present and S2 normal heart sound present GI: COMMON NORMALS: Normal to inspection, nondistended, normoactive bowel sounds present, Soft to palpation and non-tender PALPATION: Yes Soft to palpation Extremity: COMMON NORMALS: no joint enlargement and no pedal edema Neuro: COMMON NORMALS: patient oriented x3 and moves all extremities Skin: COMMON NORMALS: no rashes or lesions noted GENERAL SKIN EXAM: no rashes or lesions noted Data : 10/20/20 20:48 10/20/20 20:48 A&P Assessment and plan (1) Chest pain: Stress test is unremarkable for ischemia. Appears to have normal ejection fraction. Discussed with him and his additional possible etiologies of atypical chest pain, as well as his associated symptoms of dyspnea on exertion. Discussed finding of abnormal D-dimer. Discussed possibilities of additional assessment of possible PE. At this time options are somewhat limited. Discussed risks of ZACH, and for now in the setting of worsening renal function contrast administration would preferably be avoided. Discussed additional possibilities of assessment by VQ scan, however, at this time is not possible given he has just had nuclear stress test. We are still pending assessment by TTE. This may give us some additional information. As at this time we cannot exclude that he does not have PE, and symptoms may be represented by this, he is agreeable to after discussion of risks and benefits initiate empirically anticoagulation until such time that VQ scan can be obtained. This likely will be sometime early next week. At this time we also discussed his risk factors for coronary disease, discussed small possibility of false negative stress testing result. Should his symptoms return/persist, additional assessment for underlying significant coronary disease may still be warranted, although risks and benefits again may need to be weighted with regards to contrast administration. At this time he is chest pain-free. Initiate anticoagulation at this time with no Lovenox, will assess how he tolerates therapeutic doses, reassess hemoglobin, transition to oral anticoagulation prior to discharge likely tomorrow. Monitor for additional episodes of chest pain which may prompt need for additional Cardiologic evaluation. He is asked to additionally follow-up with cardiology in office after discharge. Multiple risk factors for cardiac disease EKG without acute St-T wave changes Troponin series without significant delta Status: Acute Qualifiers: Chest pain type: unspecified Qualified Code(s): R07.9 - Chest pain, unspecified (2) Obstructive sleep apnea: planned to get a titration study as outpatient to assess for Bipap need Status: Acute (3) COPD (chronic obstructive pulmonary disease): not currently exacerbated Duoneb q4h + budesonide 0.5 BID Status: Chronic Qualifiers: COPD type: unspecified COPD Qualified Code(s): J44.9 - Chronic obstructive pulmonary disease, unspecified Additional A&P Information Transaminitis: Appears chronic, usually mild, not entirely clear etiology, but AST appears more elevated than ALT. Will check CK. DVT ppx: low risk Full code Attestations Medical Necessity Statement*: Admission of over 2 midnights is needed for assessment management of episode of chest pain of unclear etiology, dyspnea on exertion, initiation of empiric continuation for possibility of PE with symptoms, abnormal D-dimer, additional monitoring of chest pain episode. 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
--- NOTE | 2020-10-21 19:23 | PC.NURSE ---
Received report from ADELFO Wheeler. Patient resting in bed watching tv. Patient reports feeling much better and breathing easier . Patient denies pain at this time. NO distress observed.
[2020-10-21] MEDS: enoxaparin 100 mg/mL Syringe SUBCUT (19:47)
[2020-10-21 20:59] LABS: Creatine Phosphokinase 3176 U/L (39-308)
[2020-10-21] MEDS: sodium chloride 0.9% 1,000 ML 125 ML IV (21:36)
[2020-10-21 21:42] LABS: Add Urine Microscopic? NO; Charge for UA Resulting for Rev
[2020-10-21 21:50] LABS: Bilirubin Urine Neg (Negative); Blood Urine Neg (Negative); Glucose Urine UA Norm (Normal); Ketones Urine Negative (Negative); Nitrate Urine Negative (Negative); Protein Urine Neg (Negative); Specific Gravity, Urine 1.005 (1.005-1.030); Urine Appearance Clear (CLEAR); Urine Color Yellow (Yellow); pH Urine 8 (5-7)
[2020-10-21 21:51] LABS: Leukocyte Esterase Urine Negative (Negative); Sulfosalicylic Acid Urine Negative (Negative); Urobilinogen Urine Norm (Negative)
[2020-10-21] MEDS: nicotine 21 mg Patch 1 PATCH TRANSDERMA (22:01)
[2020-10-21 22:04] LABS: CKMB 15.6 ng/mL (0-10.4)
[2020-10-21 22:09] LABS: CKMB Relative Index 0.9 % (0.0-5.3); Creatine Phosphokinase 1709 U/L (39-308)
[2020-10-22] VITALS (14 sets, daily range): BP systolic 135–179; BP diastolic 86–94; PULSE 54–83; RESP 16–20; TEMP 36.4–36.7; O2SAT 92–99
[2020-10-22 02:04] LABS: Amphetamines Screen Urine Negative (Negative); Barbiturates Screen Urine Negative (Negative); Benzodiazepines Screen Urine Positive (Negative); Cocaine Screen Urine Negative (Negative); Opiate Screen Urine Negative (Negative); PCP Screen Urine Negative (Negative); THC Screen Urine Positive (Negative)
[2020-10-22] MEDS: ipratropium-albuterol 3 mL Neb INHALATION ×4 (04:36→11:52)
[2020-10-22] MEDS: sodium chloride 0.9% 1,000 ML 125 ML IV (04:57)
[2020-10-22 05:46] LABS: Basophils % 0.3 %; Hematocrit 40.2 % (42.0-52.0); Hemoglobin 12.9 g/dL (11.7-16.6); Lymphocytes # 0.9 10^3/uL (0.8-4.8); Lymphocytes % 14.4 %; Mean Corpuscular HGB Conc 32.1 g/dL (30.0-36.0); Mean Corpuscular Hemoglobin 29.8 pg (28.0-34.0); Mean Corpuscular Volume 92.8 fL (80-94); Mean Platelet Volume 10.9 fL (7.4-10.4); Monocytes # 0.3 10^3/uL (0.2-0.9); Monocytes % 4.9 %; Neutrophils # 5.18 10^3/uL (1.8-7.7); Neutrophils % 80.1 %; Nucleated Red Blood Cells % 0 %; Platelet Count 304 10^3/cmm (130-400); Red Blood Count 4.33 10^6/uL (4.1-5.3); White Blood Count 6.5 10^3/uL (4.0-10.0)
[2020-10-22] MEDS: enoxaparin 100 mg/mL Syringe SUBCUT (06:14)
[2020-10-22] MEDS: oxyCODONE 5 mg IR Tab/Cap 15 MG PO ×2 (06:18→12:37)
[2020-10-22 06:25] LABS: Alanine Aminotransferase 57 U/L (0-41); Albumin Level 4.5 g/dL (3.5-5.2); Alkaline Phosphatase 55 IU/L (40-130); Anion Gap 15.8 (5-19); Aspartate Amino Transferase 81 U/L (0-40); Blood Urea Nitrogen 21 mg/dL (8-23); Calcium 9.2 mg/dL (8.5-10.5); Carbon Dioxide 25 mmol/L (22-29); Chloride 101 mmol/L (98-107); Globulin 2.8 g/dL (1.3-4.6); Glucose 115 mg/dL (65-115); Osmolality Calculated 288 mOsm/kg (285-295); Potassium 4.8 mmol/L (3.5-5.1); Sodium 137 mmol/L (136-145); Total Bilirubin 0.3 mg/dL (0.15-1.2); Total Protein 7.3 g/dL (6.6-8.7)
[2020-10-22 06:39] LABS: Glomerular Filtration Rate 68.1 mL/min (90-130)
[2020-10-22] MEDS: budesonide 0.5 mg/2 mL Neb INHALATION (07:55)
[2020-10-22] MEDS: nicotine 21 mg Patch 1 PATCH TRANSDERMA (08:15)
[2020-10-22] MEDS: pantoprazole DR 40 mg Tablet PO (08:16)
[2020-10-22] MEDS: FUROsemide 20 mg Tablet PO (08:16)
[2020-10-22] MEDS: gabapentin 400 mg Capsule 800 MG PO ×2 (08:16→12:15)
[2020-10-22] MEDS: predniSONE 20 mg Tablet PO (08:16)
[2020-10-22] MEDS: fenofibrate 145 mg Tablet PO (08:16)
[2020-10-22] MEDS: atenolol 50 mg Tablet 25 MG PO (08:17)
[2020-10-22] MEDS: fluticasone nasal spray 16gm Btl 1 SPRAY INTRANASAL (08:19)
[2020-10-22 13:57] LABS: Creatine Phosphokinase 1301 U/L (39-308)
--- NOTE | 2020-10-22 14:27 | PC.NURSE ---
patient discharged home at this time patient provided with discharge instructions and new medications sent to pharmacy patient educated on subq injections patient demonstrated understanding patient ambulated to private vehicle all instructions and belongings in hand accompanied by spouse and grand daughter
--- NOTE | 2020-10-22 17:15 | PM.DCS ---
Discharge Providers Date of Admission: 10/21/20 18:05 Date of Discharge: October 22, 2020 Attending Provider at Admission: Leydi García MD Attending Provider at Discharge: Coleman Bautista Primary Care Provider: CIARA Lowery Diagnoses at Discharge Discharge Diagnosis (1) Chest pain: Status: Acute Qualifiers: Chest pain type: unspecified Qualified Code(s): R07.9 - Chest pain, unspecified (2) Obstructive sleep apnea: Status: Acute (3) COPD (chronic obstructive pulmonary disease): Status: Chronic Qualifiers: COPD type: unspecified COPD Qualified Code(s): J44.9 - Chronic obstructive pulmonary disease, unspecified (4) Smoker: Status: Chronic (5) Rhabdomyolysis: Status: Acute Reason for Visit Reason for Visit: CHEST PAIN Hospital Course Hospital Course Pleasant 60-year-old gentleman recently diagnosed with COPD, started on supplemental oxygen, was being assessed for sleep apnea sleep center when he developed left-sided chest pain, sharp, associated with shortness of breath time. He also reported having some dyspnea on exertion recently. Did not have known coronary disease, but with risk factors, including current smoking, although has been cutting down a lot and trying to quit. On presentation had central elevation without positive delta, 23-18.52-18.26. EKG without acute ST-T wave changes. Chest x-ray without acute cardiopulmonary disease, improvement in right pleural effusion and right pleural reaction. Was monitored on telemetry. Assessed by echocardiography with finding of normal ejection fraction, normal regional wall motion normality, mild concentric LVH hypertrophy, possibly normal diastolic function, mild TVR, trace MVR, no pericardial effusion. Had not experienced any episodes of chest pain while in the hospital, however, with risk factors, and episode of chest pain, troponin only, dyspnea exertion underwent additional assessment by stress testing with Lexiscan nuclear perfusion scan, with noted normal myocardial perfusion imaging. Ambulated in the hallway, still with some fatigability and dyspnea on longer exertion. Sounded clear, however, without wheezing, with decent air entry, without acute COPD exacerbation. D-dimer was checked on presentation, and found abnormal at 1.8. We discussed with him regarding possibilities of false negative stress testing. Discussed to maintain low threshold for reevaluation in case of recurrence of symptoms given risk factors of coronary disease. However, as he remained symptom-free, and with acute kidney injury on presentation, with normal stress test, without positive delta or acute ischemia noted on EKG acute [place] at this time was not suspected. However, we also discussed that with abnormal D-dimer, dyspnea exertion, an episode of chest pain, we cannot rule out PE. With acute kidney injury, obtaining CT angiogram chest was considered risky, and he preferred additional assessment by VQ scan, although this could not be obtained due to nuclear perfusion cardiac study. Discussing options consensus has been for initiation of appearing anticoagulation until he can undergo additional testing by VQ scan. He was initiated on Lovenox which he tolerated well. Vital signs remained stable. He was saturating well mostly on room air. He is asked to be scheduled for VQ scan to be done early next week. Of note mild transaminitis was noted while in the hospital. CK was checked, and he was found to be in rhabdomyolysis, CK 3176, with improvement to 1709, 1301. Discussed with him that rhabdomyolysis could cause similar symptoms as well, including sharp muscle pain, as well as fatigability on exertion. Throughout the hospital stay interestingly his condition also was improving. He reported recently starting a weight loss supplement he ordered called lipozene. Looking online I cannot see with the rhabdomyolysis is a potential complication, however, appears related supplement Hydroxycut was previously discontinued due to complications that included among others rhabdomyolysis. Advised him to discontinue the supplement. At this time we will also hold his TriCor. He is asked to follow-up with primary care provider in office for reassessment of CKD, and to discuss regarding when TriCor could be resumed. He additionally is counseled to quit smoking. Please revisit with him and assist him with this difficult task. He does state that his had just recently quit. 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 Please follow-up for normalization of liver parameters. Physical Exam Const: COMMON NORMALS: no acute distress, patient oriented x3 and alert GENERAL APPEARANCE: cooperative and comfortable ORIENTATION/CONSCIOUSNESS: Yes awake OTHER: Pleasant, conversant, surrounded by family. Feeling well and happy to return home. HENMT: COMMON NORMALS: oropharynx normal Neck/C-Spine: COMMON NORMALS: no JVD Resp: COMMON NORMALS: normal respiratory effort and clear to auscultation bilaterally AUSCULTATION: clear to auscultation bilaterally and diminished lung sounds (minimally) Cardio: COMMON NORMALS: no JVD, regular rhythm, S1 normal heart sound present, S2 normal heart sound present and No murmurs present (Cardio) RHYTHM: regular rhythm HEART SOUNDS: S1 normal heart sound present and S2 normal heart sound present GI: COMMON NORMALS: Normal to inspection, nondistended, normoactive bowel sounds present, Soft to palpation and non-tender PALPATION: Yes Soft to palpation Extremity: COMMON NORMALS: no joint enlargement and no pedal edema Neuro: COMMON NORMALS: patient oriented x3 and moves all extremities SENSORIUM/ORIENTATION: Yes alert Skin: COMMON NORMALS: no rashes or lesions noted GENERAL SKIN EXAM: no rashes or lesions noted Discharge Data Data Completed and Pending: Completed Studies During Hospitalization Category Date Time Status Sestamibi Stress Test Request Sanaz ne Exams 10/21/20 04:35 Completed XR chest 1V kirsten ble [id number] Stat Exams 10/20/20 18:47 Completed NM joo perf SPECT r/s* [id number] Routin e Nuc Med 10/21/20 04:36 Completed CV echo complete* [id number] Routine Ultrasound 10/21/20 04:47 [place] [id number] Routin e Ultrasound 10/21/20 08:19 Completed Labs from last 24 hours 10/22/20 10/22/20 10/22/20 04:12 04:12 04:12 WBC 6.5 RBC 4.33 Hgb 12.9 Hct 40.2 L MCV 92.8 MCH 29.8 MCHC 32.1 RDW 13.0 Plt Count 304 MPV 10.9 H Neut % (Auto) 80.1 Lymph % (Auto) 14.4 Nicholas % (Auto) 4.9 Eos % (Auto) 0.0 Baso % (Auto) 0.3 Neut # (Auto) 5.18 Lymph # (Auto) 0.9 Nicholas # (Auto) 0.3 Eos # (Auto) 0.0 Baso # (Auto) 0.0 Nucleated RBC % (a uto) 0 Nucleated RBCs # 0.0 Sodium 137 Potassium 4.8 Chloride 101 Carbon Dioxide 25 Anion Gap 15.8 BUN 21 Creatinine 1.1 GFR Calculation 68.1 L Glucose 115 Calculated Osmolal ity 288 Calcium 9.2 Phosphorus Total Bilirubin 0.3 AST 81 H ALT 57 H Alkaline Phosphata se 55 Creatine Kinase 1301 H* CK-MB (CK-2) CK-MB (CK-2) Rel I ndex Total Protein 7.3 Albumin 4.5 Globulin 2.8 Urine Color Urine Appearance Urine pH Ur Specific Gravit y Urine Protein Urine Glucose (UA) Urine Ketones Urine Blood Urine Nitrate Urine Bilirubin Prot Sulfosalicyli c Acd Urine Urobilinogen Ur Leukocyte Steph ase Urine Opiates Scre en Ur Barbiturates Sc reen Ur Phencyclidine S crn Ur Amphetamines Sc reen U Benzodiazepines Scrn Urine Cocaine Scre en U Marijuana (THC) Screen 10/21/20 10/21/20 10/21/20 21:29 21:26 21:26 WBC RBC Hgb Hct MCV MCH MCHC RDW Plt Count MPV Neut % (Auto) Lymph % (Auto) Nicholas % (Auto) Eos % (Auto) Baso % (Auto) Neut # (Auto) Lymph # (Auto) Nicholas # (Auto) Eos # (Auto) Baso # (Auto) Nucleated RBC % (a uto) Nucleated RBCs # Sodium Potassium Chloride Carbon Dioxide Anion Gap BUN Creatinine GFR Calculation Glucose Calculated Osmolal ity Calcium Phosphorus 2.0 L Total Bilirubin AST ALT Alkaline Phosphata se Creatine Kinase 1709 H* CK-MB (CK-2) 15.6 H CK-MB (CK-2) Rel I ndex 0.9 Total Protein Albumin Globulin Urine Color Yellow Urine Appearance Clear Urine pH 8 H Ur Specific Gravit y 1.005 Urine Protein Neg Urine Glucose (UA) Norm Urine Ketones Negative Urine Blood Neg Urine Nitrate Negative Urine Bilirubin Neg Prot Sulfosalicyli c Acd Negative Urine Urobilinogen Norm Ur Leukocyte Steph ase Negative Urine Opiates Scre en Negative Ur Barbiturates Sc reen Negative Ur Phencyclidine S crn Negative Ur Amphetamines Sc reen Negative U Benzodiazepines Scrn Positive H Urine Cocaine Scre en Negative U Marijuana (THC) Screen Positive H 10/21/20 00:54 WBC RBC Hgb Hct MCV MCH MCHC RDW Plt Count MPV Neut % (Auto) Lymph % (Auto) Nicholas % (Auto) Eos % (Auto) Baso % (Auto) Neut # (Auto) Lymph # (Auto) Nicholas # (Auto) Eos # (Auto) Baso # (Auto) Nucleated RBC % (a uto) Nucleated RBCs # Sodium Potassium Chloride Carbon Dioxide Anion Gap BUN Creatinine GFR Calculation Glucose Calculated Osmolal ity Calcium Phosphorus Total Bilirubin AST ALT Alkaline Phosphata se Creatine Kinase 3176 H* CK-MB (CK-2) CK-MB (CK-2) Rel I ndex Total Protein Albumin Globulin Urine Color Urine Appearance Urine pH Ur Specific Gravit y Urine Protein Urine Glucose (UA) Urine Ketones Urine Blood Urine Nitrate Urine Bilirubin Prot Sulfosalicyli c Acd Urine Urobilinogen Ur Leukocyte Steph ase Urine Opiates Scre en Ur Barbiturates Sc reen Ur Phencyclidine S crn Ur Amphetamines Sc reen U Benzodiazepines Scrn Urine Cocaine Scre en U Marijuana (THC) Screen Vitals: Last Vital Signs Temp 98.1 F 10/22/20 07:11 Pulse 83 10/22/20 13:33 Resp 20 H 10/22/20 13:33 BP 179/94 10/22/20 13:33 Pulse Ox 99 10/22/20 13:33 Discharge Plan Discharge Patient Disposition: Home Condition: Stable Prescriptions: New Lovenox 100 mg/mL syringe 110 mg SUBCUT Q12H Qty: 10 RF: 0 Continued oxycodone 15 mg tablet 15 mg PO QID PRN (Reason: pain) 30 Days Qty: 105 RF: 0 fluticasone propionate [Flonase Allergy Relief] 50 mcg/actuation spray,suspension 1 spray INTRANASAL Q12H 30 Days Qty: 1 RF: 5 nitroglycerin [Nitrostat] 0.4 mg tablet, sublingual 0.4 mg SUBLINGUAL Q5M PRN (Reason: Chest Pain) RF: 0 Bevespi Aerosphere 9-4.8 mcg HFA aerosol inhaler 2 puff inhalation BID Qty: 10.7 RF: 3 albuterol sulfate 90 mcg/actuation HFA aerosol inhaler 2 puff inhalation Q6H PRN (Reason: shortness of breath or wheezing) 30 Days Qty: 8.5 RF: 3 promethazine 25 mg tablet 25 mg PO Q4H PRN (Reason: nausea and vomiting) Qty: 20 RF: 0 atenolol 25 mg tablet 25 mg PO DAILY@0800 RF: 0 gabapentin 800 mg tablet 800 mg PO TID@08,12,20 RF: 0 omeprazole 20 mg capsule,delayed release(DR/EC) 20 mg PO BID@0800,2000 RF: 0 furosemide 20 mg tablet 20 mg PO DAILY@0800 RF: 0 Held Tricor 145 mg tablet 145 mg PO DAILY@0800 RF: 0 Hold Instructions: Resume on 10/28/20. Discontinued prednisone 20 mg tablet 20 mg PO BID@0800,1999 RF: 0 Discharge Orders: Discharge Order (Routine); Ordered 10/22/20 Ordered By: Coleman Bautista Other Ambulatory Orders: [place] pul vent and perfus* [id number] (Routine) Timeframe: 20201024 Facility: [facility] - Location: Radiology Ordered By: Coleman Bautista Referrals: Niurka Castillo FNP-C [Primary Care Provider] - 4-7 days (YOU DOCTOR'S OFFICE WILL CALL YOU WITH A FOLLOW UP APPOINTMENT. IF YOU DO NOT HEAR FROM THEM BY SATURDAY PLEASE CALL [phone].) Discharge Diet: Cardiac Discharge Activity: Increase activity as tolerated Patient Instructions: Enoxaparin (Injection), Rhabdomyolysis (GEN), COPD Stoplight, Chest Pain Stoplight, Opioid Safety Activity Restrictions/Additional Instructions: Please discontinue taking lipozene. You were found to have rhabdomyolysis (injury/breakdown of muscle tissue), which is suspected contributed to acute kidney injury. Please have your primary care doctor follow-up your muscle enzyme level, and recheck kidney function to make sure both are continuing to improve. For now please hold the TriCor (fenofibrate) until this medication is resumed by your primary doctor as this medication in some cases can also contribute to rhabdomyolysis. Please note that for now you are started on blood thinner medication until you can undergo nuclear lung scan of your lungs to exclude blood clot in the lung as cause of your chest pain, shortness of breath on exertion. In case this scan is negative he will be able to discontinue blood thinners. Please follow-up with your primary doctor after the scan. Please follow-up sleep study results as planned with your lung doctor/primary provider. Discharge Attestations Time Spent in Discharge Care*: greater than 30 min Quality Metrics Clinical Quality Measures During this hospital stay, did patient experience: None Coding Level of Care Code Acute g FW AL note Diagnoses Chest pain R07.9 Chest pain type: unspecified Obstructive sleep apnea G47.33 COPD (chronic obstructive pulmonary disease) J44.9 COPD type: unspecified COPD Smoker F17.200 Rhabdomyolysis M62.82
--- NOTE | 2020-10-24 12:18 | PC.RESP ---
Pulmonary Rehab and Smoking Cessation information sent to patient.
--- NOTE | 2020-10-28 18:15 | PC.SOCIAL ---
Order for VQ scan was not entered at [place]. CAlled by Marie Castillo due to confusion and patient was suppose to come this week on Saturday to get this done is what he was told but not on schedule. AFter looking at this no order to be found. Was told he is scheduled for 11/01/2020 by Marie Castillo but will be out of Lovenox injections after today. Call placed to scheduling and they have him on for 11/01/20 but she did not have the order. Verbal order received to enter by Dr Bautista and asked [facility] scheduling to see if can come in today at 12 noon. NM unable to do so at 12 today but can get him in at 11am tomorrow for VQ scan. Patient is aware and agreeable. Verbal order received to call in 3 more Lovenox injection to last through tomorrow until report can be reviewed. This nurse called to [facility] pharmacy since Dave was unable to dispense less than a box which is 10. Filled the three at [facility] pharmacy co pay of $1.30 paid by this nurse and the medication was driven to patients home. Explained how to aspirate the 120mg syring to required dose of 110mg. Patient verbalized understanding. All questions answered. UPdated Marie that this nurse will follow up on results of VQ scan tomorrow and call her to update outcome. If positive for PE will need to have either Eliquis or Xarelto prescribed and she agrees to do so if needed. Patient indicates less short of breath and doing better so hopefully scan will be negative.
== END 2020-10-22 14:26 | disposition home or self-care (01) | DRG 176 ==
LOC: ER 20:25 → CSU 23:07
PROVIDERS: Internal Medicine; Admitting Provider Student in an Organized Health Care Education/Training Program; Emergency Provider Emergency Medicine; PCP Nurse Practitioner Family; Visit Provider Internal Medicine
DX: I26.99 Other pulmonary embolism without acute cor pulmonale (principal); M62.82 Rhabdomyolysis; J90 Pleural effusion, not elsewhere classified; N17.9 Acute kidney failure, unspecified; R07.9 Chest pain, unspecified; G47.33 Obstructive sleep apnea (adult) (pediatric); J44.9 Chronic obstructive pulmonary disease, unspecified; F41.9 Anxiety disorder, unspecified; H93.13 Tinnitus, bilateral; G89.29 Other chronic pain; M54.2 Cervicalgia; M54.9 Dorsalgia, unspecified; E78.5 Hyperlipidemia, unspecified; M47.817 Spondylosis without myelopathy or radiculopathy, lumbosacral region; K21.9 Gastro-esophageal reflux disease without esophagitis; Z86.19 Personal history of other infectious and parasitic diseases; F17.210 Nicotine dependence, cigarettes, uncomplicated; Z79.891 Long term (current) use of opiate analgesic; Z79.51 Long term (current) use of inhaled steroids
CPT/HCPCS: 36415; 71045; 78452; 80053; 80306; 81003; 82550; 82553; 84100; 84484; 85025; 85378; 93005; 93017; 93306; 93970; 94640; 96372; A9500; G0378; J1650; J2785; J7030; J7512; J7626

== ENCOUNTER → 2020-10-25 11:06 | Outpatient (BNVA) | payer MEDICARE, MEDICAID, SELFPAY | PROVIDERS: PCP Nurse Practitioner Family; Visit Provider Nurse Practitioner Family | DX: M62.82 Rhabdomyolysis (principal); F17.219 Nicotine dependence, cigarettes, with unspecified nicotine-induced disorders | CPT/HCPCS: 80053; 82550 ==

== ENCOUNTER → 2020-10-27 09:16 | Outpatient (BNVA) | payer MEDICARE, MEDICAID, SELFPAY | PROVIDERS: PCP Nurse Practitioner Family; Visit Provider Anesthesiology | DX: G89.29 Other chronic pain (principal); M47.817 Spondylosis without myelopathy or radiculopathy, lumbosacral region; M54.2 Cervicalgia; M54.9 Dorsalgia, unspecified; Z87.891 Personal history of nicotine dependence; Z79.891 Long term (current) use of opiate analgesic | CPT/HCPCS: 99214 ==

== ENCOUNTER 2020-10-29 10:52 | Outpatient (CLI) | payer MEDICARE, MEDICAID, SELFPAY ==
--- NOTE | 2020-10-29 10:58 | NMR_ITS ---
PROCEDURE INFORMATION: Exam: [place] Lung Ventilation and Perfusion Imaging Exam date and time: 10/29/2020 10:58 AM Age: 60 years old Clinical indication: Pain and abnormal findings; Abnormal diagnostic tests; Elevated d-dimer; Dyspnea and shortness of breath; Left-sided; Patient HX: Shortness of breath and anterior left sided chest pain; Additional info: Shortness of breath and chest pain TECHNIQUE: Imaging protocol: Nuclear pulmonary ventilation with aerosol or gas was performed followed by perfusion. Views: Ventilation acquired with multiple projections. Perfusion acquired with multiple projections. Radiopharmaceutical: 5.5 mCi Tc-99m MAA (Macroaggregated Albumin), IV. 32.1 mCi Tc-99m DTPA (DTPA Aerosol), Inhalation. COMPARISON: CT lung screening [id number] 09/09/2020 9:43 AM FINDINGS: Ventilation: Normal. No ventilation defects. Perfusion: Normal. No perfusion defects. HI/HI pul vent and perfus* [id number] IMPRESSION: Normal perfusion. No evidence of pulmonary embolism.
--- NOTE | 2020-10-29 11:22 | XRR_ITS ---
PROCEDURE INFORMATION: Exam: XR Chest Exam date and time: 10/29/2020 11:30 AM Age: 60 years old Clinical indication: Shortness of breath; Additional info: Shortness of breath chest pain; Lung scan comparison TECHNIQUE: Imaging protocol: XR of the chest. Views: 2 views. COMPARISON: CR (CHEST, ) 10/20/2020 6:48 PM FINDINGS: Lungs: The lungs are over-inflated with flattening of the diaphragm consistent with emphysema. There is mild fibrosis in the right base. Pleural spaces: Unremarkable. No pleural effusion. No pneumothorax. Heart/Mediastinum: Unremarkable. No cardiomegaly. Bones/joints: There are multiple old healed rib fractures. There is old left clavicle fracture. XR/XR chest 2V* [id number] IMPRESSION: 1. Overinflation of the lungs consistent with emphysema. 2. No acute abnormality.
== END 2020-10-29 10:53 | disposition home or self-care (01) ==
PROVIDERS: PCP Nurse Practitioner Family; Visit Provider Internal Medicine
DX: R07.9 Chest pain, unspecified (principal); R06.00 Dyspnea, unspecified
CPT/HCPCS: 71046; 78014; A9540; A9567

== ENCOUNTER → 2020-12-23 08:56 | Outpatient (BNVA) | payer MEDICARE, MEDICAID, SELFPAY | PROVIDERS: PCP Nurse Practitioner Family; Visit Provider Anesthesiology | DX: G89.29 Other chronic pain (principal); M47.817 Spondylosis without myelopathy or radiculopathy, lumbosacral region; M54.2 Cervicalgia; F17.219 Nicotine dependence, cigarettes, with unspecified nicotine-induced disorders; Z79.891 Long term (current) use of opiate analgesic | CPT/HCPCS: 99214 ==

== ENCOUNTER → 2021-02-03 11:30 | Outpatient (BNVA) | payer MEDICARE, MEDICAID, SELFPAY | PROVIDERS: PCP Nurse Practitioner Family; Visit Provider Nurse Practitioner Family | DX: K92.2 Gastrointestinal hemorrhage, unspecified (principal); R10.32 Left lower quadrant pain; Z87.11 Personal history of peptic ulcer disease | CPT/HCPCS: 80053; 85025 ==

== ENCOUNTER → 2021-02-09 14:53 | Outpatient (BNVA) | payer MEDICARE, MEDICAID, SELFPAY | PROVIDERS: PCP Nurse Practitioner Family; Visit Provider Nurse Practitioner Family | DX: K92.2 Gastrointestinal hemorrhage, unspecified (principal); R10.32 Left lower quadrant pain; Z87.11 Personal history of peptic ulcer disease | CPT/HCPCS: 82272 ==

== ENCOUNTER → 2021-02-22 08:38 | Outpatient (BNVA) | payer MEDICARE, MEDICAID, SELFPAY | PROVIDERS: PCP Nurse Practitioner Family; Visit Provider Anesthesiology | DX: G89.29 Other chronic pain (principal); M47.817 Spondylosis without myelopathy or radiculopathy, lumbosacral region; M54.2 Cervicalgia; M79.12 Myalgia of auxiliary muscles, head and neck; F17.219 Nicotine dependence, cigarettes, with unspecified nicotine-induced disorders; Z79.891 Long term (current) use of opiate analgesic | CPT/HCPCS: 99214 ==

== ENCOUNTER → 2021-04-07 15:03 | Outpatient (BNVA) | payer MEDICARE, MEDICAID, SELFPAY | PROVIDERS: PCP Nurse Practitioner Family; Visit Provider Surgery | DX: Z20.822 Contact with and (suspected) exposure to COVID-19 (principal); K21.9 Gastro-esophageal reflux disease without esophagitis | CPT/HCPCS: 87635 ==

== ENCOUNTER 2021-04-13 10:00 | Day surgery (SDC) | payer MEDICARE, MEDICAID, SELFPAY ==
[2021-04-11 09:41] VITALS: BMI 29.9
--- NOTE | 2021-04-13 10:17 | ANES.PREANE2 ---
Pre-Anesthetic Assessment Pre-Anesthetic Assessment: Height/Weight: Height 1.75 m Weight 92.079 kg Proposed Procedure: Operation Date: 04/13/21 11:15 Proposed Procedures p EGD 47324 K21.9(Not Applicable) - Tito King MD Familial anesthetic complications: none Was Beta Krish taken within 24 hours: Yes Was Clonidine taken within 24 hours: N/A Last Intake: 22:00 Social: Social History: Tobacco and No alcohol Packs per day: 1/2 Pack years: 30 Pulmonary: Pulmonary: COPD, Cough and Sleep apnea Comments: oxygen @ noc 2L per min CV/HEM: CV/HEM: Angina (Unstable) and HTN Comments: chest pain frequently, last two days ago PFSH Anesthesia PFSH: Medical History Anxiety Bilateral subjective nonpulsatile tinnitus without hearing loss, otoscopic finding, neurologic deficit, or head trauma Bradycardia Chronic eustachian tube dysfunction Chronic neck and back pain Cigarette smoker motivated to quit COPD (chronic obstructive pulmonary disease) Dyslipidemia Environmental and seasonal allergies Essential hypertension Facet arthropathy, lumbosacral GERD (gastroesophageal reflux disease) Hearing loss Hepatitis C Hypertension Nocturnal hypoxemia Surgical History H/O esophagogastroduodenoscopy (04/13/21) normal History of lymph node excision History of neck surgery Hx of hand surgery Status post colonoscopy Family History Father Pacemaker CAD (coronary artery disease) Clotting disorder Cancer Mother Cancer CAD (coronary artery disease) Diabetes Lung disease Stroke Brother CAD (coronary artery disease) Grandfather Cancer Family/Other Cancer Dementia Denies family history of Chronic kidney disease (CKD) Suicide Anesthesia complication Bleeding disorder Social History Smoking and tobacco status: former smoker Quit status (tobacco): has tried quititng Smoking risk assessment/counseling performed?: Yes Alcohol intake: never Counseling given: No Counseling given: No Lives independently: Yes Household members: spouse Marital status: Current occupational status: disabled History of recent travel: No Current gender identity: Male Data Anesthesia Cardiac Studies: No Data to Display
--- NOTE | 2021-04-13 10:30 | ANES.PREANE2 ---
Pre-Anesthetic Assessment Pre-Anesthetic Assessment: Height/Weight: Height 1.75 m Weight 92.079 kg Proposed Procedure: Operation Date: 04/13/21 11:15 Proposed Procedures p EGD 18987 K21.9(Not Applicable) - Tito King MD Was Beta Krish taken within 24 hours: Yes Was Clonidine taken within 24 hours: N/A Social: Social History: Tobacco Packs per day: 1/2 Exam: Pre-Anes Outpt Exam: alert, oriented x 3, clear to auscultation bilaterally and regular rate & rhythm Airway: Submandibular: WNL Cervical ROM: WNL MP: 1 Dentition: False Pulmonary: Pulmonary: Asthma, COPD, Orthopnea and Sleep apnea CV/HEM: CV/HEM: Arrythmia and HTN : : None reported Hepatic: Hepatic: Hepatitis (supposed h/x hep C) GI: GI: GERD (H/O gerd) Metabolic: Metabolic: None reported Musc/skel: Musc/skel: None reported Anesthetic Plan: ASA status: 3 Anesthesia: MAC Risk of > 500 ml blood loss (7ml/kg in children): No PFSH Anesthesia PFSH: Medical History Anxiety Bilateral subjective nonpulsatile tinnitus without hearing loss, otoscopic finding, neurologic deficit, or head trauma Bradycardia Chronic eustachian tube dysfunction Chronic neck and back pain COPD (chronic obstructive pulmonary disease) Dyslipidemia Environmental and seasonal allergies Essential hypertension Facet arthropathy, lumbosacral GERD (gastroesophageal reflux disease) Hearing loss Hepatitis C Hypertension Nocturnal hypoxemia Surgical History History of lymph node excision History of neck surgery Hx of hand surgery Status post colonoscopy Family History Father Pacemaker CAD (coronary artery disease) Clotting disorder Cancer Mother Cancer CAD (coronary artery disease) Diabetes Lung disease Stroke Brother CAD (coronary artery disease) Grandfather Cancer Family/Other Cancer Dementia Denies family history of Chronic kidney disease (CKD) Suicide Anesthesia complication Bleeding disorder Social History (Updated 02/22/21 @ 08:45 by Yanelis Clarke LPN) Smoking and tobacco status: former smoker Quit status (tobacco): has quit using tobacco Year quit tobacco: 2020 Second hand smoke exposure: No Smoking risk assessment/counseling performed?: Yes Alcohol intake: never Counseling given: No Counseling given: No Lives independently: Yes Household members: spouse Marital status: Current occupational status: disabled History of recent travel: No Current gender identity: Male Data Anesthesia Cardiac Studies: No Data to Display
[2021-04-13 10:51] VITALS: BP 140/90; PULSE 53; RESP 18; TEMP 36.3; O2SAT 96
[2021-04-13] MEDS: sodium chloride 0.9% 1,000 ML 30 ML IV (11:05)
--- NOTE | 2021-04-13 11:24 | W.PM.OPSFHP ---
Same Day Surgery H&P Indication for Procedure/HPI DATE OF PROCEDURE: April 13, 2021 CHIEF COMPLAINT/INDICATIONFOR SURGICAL PROCEDURE: melena PREOP DIAGNOSIS: upper gi symptoms PLANNED PROCEDRUE: Operation Date: 04/13/21 11:15 Proposed Procedures p EGD 25482 K21.9(Not Applicable) - Tito King MD Medications/Allergies* Home Medications Medication Instructions Recorded Confirmed Type nitroglycerin 0.4 mg sublingual 0.4 mg SUBLINGUAL Q5M PRN 06/21/19 04/13/21 History tablet promethazine 25 mg tablet 25 mg PO Q4H PRN tab 02/10/21 04/13/21 History Allergies/Adverse Reactions Allergy/AdvReac Type Severity Reaction Status Date / Time No Known Allergies Allergy Verified 04/13/21 10:49 Current Medications: Generic Name Dose Route Start Last Admin Trade Name Freq PRN Reason Stop Dose Admin Sodium Chloride 1,000 mls @ 30 mls/hr 04/13/21 10:45 04/13/21 11:05 Sodium Chloride 0.9% IV 04/14/21 10:44 30 mls/hr .Q24H PAVAN Administration Pertinent History/Comorbid Conditions* Medical History (Updated 02/10/21 @ 11:20 by Tito King MD) Anxiety Bilateral subjective nonpulsatile tinnitus without hearing loss, otoscopic finding, neurologic deficit, or head trauma Bradycardia Chronic eustachian tube dysfunction Chronic neck and back pain COPD (chronic obstructive pulmonary disease) Dyslipidemia Environmental and seasonal allergies Essential hypertension Facet arthropathy, lumbosacral GERD (gastroesophageal reflux disease) Hearing loss Hepatitis C Hypertension Nocturnal hypoxemia Surgical History (Updated 08/25/19 @ 13:24 by Tito King MD) History of lymph node excision History of neck surgery Hx of hand surgery Status post colonoscopy Family History (Updated 11/09/20 @ 15:41 by Stacia Lim RN) Diabetes Mother CAD (coronary artery disease) Father Mother Brother Clotting disorder Father Dementia Family/Other Pacemaker Father Lung disease Mother Cancer Father Mother Grandfather Family/Other Stroke Mother Denies family history of Chronic kidney disease (CKD) Suicide Anesthesia complication Bleeding disorder Social History Smoking and tobacco status: former smoker Quit status (tobacco): has quit using tobacco Year quit tobacco: 2020 Second hand smoke exposure: No Smoking risk assessment/counseling performed?: Yes Alcohol intake: never Counseling given: No Counseling given: No Lives independently: Yes Household members: spouse Marital status: Current occupational status: disabled History of recent travel: No Current gender identity: Male Pertinent Exam Findings alert, oriented x 3 and regular rate & rhythm Recommendations Surgery/Procedure today Coding Level of Care Code Acute Parole Hearing Officer for Disha Shah
[2021-04-13 12:15] VITALS: BP 132/85; PULSE 56; RESP 16; TEMP 36.3; O2SAT 90
[2021-04-13 12:26] VITALS: BP 126/82; PULSE 44; RESP 18; O2SAT 95
== END 2021-04-13 12:48 | disposition home or self-care (01) ==
PROVIDERS: PCP Nurse Practitioner Family; Visit Provider Surgery
PROC: 0DJ08ZZ Inspection of Upper Intestinal Tract, Via Natural or Artificial Opening Endoscopic (ICD-10-PCS; CPT 43235; principal; 2021-04-13 11:15)
DX: K92.1 Melena (principal); K21.9 Gastro-esophageal reflux disease without esophagitis; I10 Essential (primary) hypertension; F17.210 Nicotine dependence, cigarettes, uncomplicated; Z86.19 Personal history of other infectious and parasitic diseases
CPT/HCPCS: 43235; 96360; 96361; J2704; J7030

== ENCOUNTER → 2021-04-19 08:39 | Outpatient (BNVA) | payer MEDICARE, MEDICAID, SELFPAY | PROVIDERS: PCP Nurse Practitioner Family; Visit Provider Anesthesiology | DX: G89.29 Other chronic pain (principal); M54.2 Cervicalgia; M79.12 Myalgia of auxiliary muscles, head and neck; M47.817 Spondylosis without myelopathy or radiculopathy, lumbosacral region; F17.210 Nicotine dependence, cigarettes, uncomplicated; Z79.891 Long term (current) use of opiate analgesic; Z71.6 Tobacco abuse counseling | CPT/HCPCS: 99214 ==

== ENCOUNTER 2021-06-12 09:28 | Outpatient (CLI) | payer MEDICARE, MEDICAID, SELFPAY ==
--- NOTE | 2021-06-12 09:30 | US_ITS ---
WS: [id number] RIGHT UPPER QUADRANT ULTRASOUND HISTORY: R10.9 - Unspecified abdominal pain COMPARISON: None available. Liver: 17.3 cm in length. Normal size liver. No bile duct dilatation or mass. Portal Vein: Normal hepatopetal flow with monophasic waveform. Gallbladder: Normally distended gallbladder with no stones or wall thickening. CBD: 0.5 cm Pancreas: Normal size and echogenicity. Right kidney: 10.2 cm in length. Normal size and echogenicity. No hydronephrosis or mass. Aorta and IVC: Unremarkable abdominal aorta and IVC. No ascites. US/US gall bladder [id number] IMPRESSION: Normal RIGHT upper quadrant ultrasound.
== END 2021-06-12 09:29 | disposition home or self-care (01) ==
LOC: RAD 09:31
PROVIDERS: PCP Nurse Practitioner Family; Visit Provider Surgery
DX: R10.9 Unspecified abdominal pain (principal)
CPT/HCPCS: 76705

== ENCOUNTER → 2021-06-22 08:00 | Outpatient (BNVA) | payer MEDICARE, MEDICAID, SELFPAY | PROVIDERS: PCP Nurse Practitioner Family; Visit Provider Anesthesiology | DX: G89.29 Other chronic pain (principal); M47.817 Spondylosis without myelopathy or radiculopathy, lumbosacral region; M54.2 Cervicalgia; M79.12 Myalgia of auxiliary muscles, head and neck; F17.219 Nicotine dependence, cigarettes, with unspecified nicotine-induced disorders; Z79.891 Long term (current) use of opiate analgesic; M25.511 Pain in right shoulder | CPT/HCPCS: 73030; 99214 ==

== ENCOUNTER → 2021-07-11 13:27 | Outpatient (BNVA) | payer MEDICARE, MEDICAID, SELFPAY | PROVIDERS: PCP Nurse Practitioner Family; Visit Provider Nurse Practitioner Family | DX: M19.012 Primary osteoarthritis, left shoulder (principal); G89.29 Other chronic pain; M25.512 Pain in left shoulder | CPT/HCPCS: 73030 ==

== ENCOUNTER 2021-07-14 13:54 | Emergency (ER) | payer MEDICARE, MEDICAID, SELFPAY ==
[2021-07-14 14:18] VITALS: BP 142/92; PULSE 62; RESP 18; TEMP 36.5; O2SAT 97; BMI 27.2
--- NOTE | 2021-07-14 14:58 | ED_ITS ---
Documented by User: STEPHANIA Chou 07/14/21 16:11 HPI - Extremity Problem General: Chief complaint: Extremity Injury, Upper Stated complaint: Both shoulders are in alot of pain Time Seen by Provider: 07/14/21 14:56 History of Present Illness: Patient presents with chronic pain in both shoulders. Patient has lipoma right shoulder which he supposed see Dr. Richey for in 2 weeks. He has history rotator cuff discomfort in the left shoulder. Patient said oxycodone 15 mg did not even help his discomfort. He says hydrocodone has helped some . he says he works in a [employer] and his shoulders been hurting more. Associated symptoms: Deny chest pain, fever(s) or rash Review of Systems Narrative: Patient states he was sent from the PCP office to come here to get medication for his chronic pain. Const: Denies: fever(s), chills or body aches Eyes: Denies: eye discomfort ENMT: Denies: throat pain Card: Denies: chest pain Resp: Denies: dyspnea GI: Denies: abdominal pain Musc: Reports: joint pain (Right shoulder has a lipoma that Dr. Richey supposed take care of in left s) and other (And chronic left shoulder discomfort related to rotator cuff injury) Skin/Breast: Denies: rash Neuro: Denies: headache(s) Psych: Denies: depression or suicidal ideation PFSH ED PFSH: Medical History Anxiety Bilateral subjective nonpulsatile tinnitus without hearing loss, otoscopic finding, neurologic deficit, or head trauma Bradycardia Chronic eustachian tube dysfunction Chronic neck and back pain Cigarette smoker motivated to quit COPD (chronic obstructive pulmonary disease) Dyslipidemia Environmental and seasonal allergies Essential hypertension Facet arthropathy, lumbosacral GERD (gastroesophageal reflux disease) Hearing loss Hepatitis C Hypertension Nocturnal hypoxemia Surgical History H/O esophagogastroduodenoscopy (04/13/21) normal History of lymph node excision History of neck surgery Hx of hand surgery Status post colonoscopy Family History Father Pacemaker CAD (coronary artery disease) Clotting disorder Cancer Mother Cancer CAD (coronary artery disease) Diabetes Lung disease Stroke Brother CAD (coronary artery disease) Grandfather Cancer Family/Other Cancer Dementia Denies family history of Chronic kidney disease (CKD) Suicide Anesthesia complication Bleeding disorder Social History Quit status (tobacco): has tried quititng Smoking risk assessment/counseling performed?: Yes Alcohol intake: never Counseling given: No Counseling given: No Lives independently: Yes Household members: spouse Marital status: Current occupational status: disabled History of recent travel: No Current gender identity: Male Physical Exam Const: COMMON NORMALS: no acute distress, patient oriented x3 and alert HENMT: COMMON NORMALS: normocephalic HEAD & SCALP: normocephalic Eye: COMMON NORMALS: EOMs intact bilaterally Neck/C-Spine: COMMON NORMALS: no JVD Resp: COMMON NORMALS: normal respiratory effort and No use of accessory muscles Cardio: COMMON NORMALS: no JVD GI: INSPECTION: Yes normal to inspection Extremity: COMMON NORMALS: normal to inspection NARRATIVE EXTREMITY EXAM: Patient appears to have good range of motion with pain to his left shoulder. He is able to move the the arm in the waiting room area and also when he is getting up from the chair. No redness swelling noted. I was unable to do a range of motion test because patient got upset and left. Neuro: COMMON NORMALS: patient oriented x3 SENSORIUM/ORIENTATION: Yes alert Psych: COMMON NORMALS: mental status grossly normal Skin: COMMON NORMALS: no rashes or lesions noted NARRATIVE SKIN EXAM: Quarter size lipoma right AC area superiorly. Freely mobile. Firm. tender to the touch. No redness swelling noted. GENERAL SKIN EXAM: no rashes or lesions noted Course Vital Signs: Vital signs: Vital Signs Temperature 97.7 F 07/14/21 14:18 Pulse Rate 58 L 07/14/21 15:19 Respiratory Rate 18 07/14/21 15:19 Blood Pressure 136/80 07/14/21 15:19 Pulse Oximetry 96 07/14/21 15:19 MDM - Extremity (Nontraumatic) Medical Decision Making Patient with a lipoma present for a while to his right shoulder area and then has chronic left shoulder pain. He states his PCP sent him here today because he can get any needs pain medication. He says oxycodone at 50 mg does not help with the pain he said even hydrocodone did not make a difference. Patient shares me in the triage room that his pain was not acutely related to his [employer] work. Patient said in triage area that his pain was chronic now saying saying his pain is acute and he wants x-rays done. Patient said he was sent here by Rossi's office and that were supposed to call the doctor curriculum and instruction specialist for Dr. Richey for his shoulder pain. Advised patient that for his presenting symptoms that that would not be the course of action . patient not tried Celebrex so we will try that and see if that helps with his discomfort. Follow- up PCP. I discussed the presentation with Dr. Campos and patient's reaction to my decision. Discharge Plan Discharge Patient Disposition: Home Clinical Impression: Chronic pain of both shoulders Condition: Stable Prescriptions: New Celebrex 100 mg capsule 200 mg PO BID Qty: 20 0RF Voltaren Arthritis Pain 1 % gel 4 g topical QID Qty: 100 0RF Rx Instructions: apply to single knee, ankle, foot; for foot includes sole/toes/top of foot No Action fluticasone propionate [Flonase Allergy Relief] 50 mcg/actuation spray,suspension 1 spray INTRANASAL Q12H 30 Days Qty: 1 5RF Rx Instructions: USE AT 0800, 1999 oxycodone 15 mg tablet 15 mg PO QID PRN (Reason: pain) 30 Days Qty: 120 0RF Rx Instructions: fill on or after 07/01/21 oxycodone 15 mg tablet 15 mg PO QID PRN (Reason: pain) 30 Days Qty: 120 0RF Rx Instructions: fill on or after 07/31/21 gabapentin 800 mg tablet 800 mg PO TID@08,12,20 30 Days Qty: 90 1RF methocarbamol 750 mg tablet 750 mg PO TID 30 Days Qty: 90 1RF nitroglycerin [Nitrostat] 0.4 mg tablet, sublingual 0.4 mg SUBLINGUAL Q5M PRN (Reason: Chest Pain) 0RF nicotine [Nicoderm CQ] 14 mg/24 hr patch 24 hour 1 patch transdermal Q24H 42 Days Qty: 42 0RF atenolol 25 mg tablet 25 mg PO DAILY@0800 30 Days Qty: 30 5RF furosemide 20 mg tablet 20 mg PO DAILY 30 Days Qty: 30 5RF pantoprazole [Protonix] 40 mg tablet,delayed release (DR/EC) 40 mg PO DAILY Qty: 30 2RF sucralfate [Carafate] 1 gram tablet 1 g PO TID 30 Days Qty: 90 2RF Bevespi Aerosphere 9-4.8 mcg HFA aerosol inhaler 2 puff inhalation BID Qty: 10.7 5RF albuterol sulfate 90 mcg/actuation HFA aerosol inhaler 2 puff inhalation Q6H PRN (Reason: shortness of breath or wheezing) 30 Days Qty: 8.5 5RF Discharge Orders: Discharge ED (Routine); Ordered 07/14/21 Ordered By: Mario Campos Referrals: Niurka Castillo FNP-C [Primary Care Provider] - Discharge Diet: Usual diet Discharge Activity: Increase activity as tolerated Activity Restrictions/Additional Instructions: Follow-up with medical provider as directed. Take medications as prescribed. Return to the ER or your medical provider if condition worsens. Please read and understand discharge instructions. If any questions ask please. Coding Level of Care Code ED Care Program Director for Chg Fwd Exam Comprehensive Documented by User: Jan Campos DO 07/14/21 16:45 HPI - Extremity Problem General: Chief complaint: Extremity Injury, Upper Stated complaint: Both shoulders are in alot of pain Time Seen by Provider: 07/14/21 14:56 [facility] ED PFSH: Medical History Anxiety Bilateral subjective nonpulsatile tinnitus without hearing loss, otoscopic fi nding, neurologic deficit, or head trauma Bradycardia Chronic eustachian tube dysfunction Chronic neck and back pain Cigarette smoker motivated to quit COPD (chronic obstructive pulmonary disease) Dyslipidemia Environmental and seasonal allergies Essential hypertension Facet arthropathy, lumbosacral GERD (gastroesophageal reflux disease) Hearing loss Hepatitis C Hypertension Nocturnal hypoxemia Surgical History H/O esophagogastroduodenoscopy (04/13/21) normal History of lymph node excision History of neck surgery Hx of hand surgery Status post colonoscopy Family History Father Pacemaker CAD (coronary artery disease) Clotting disorder Cancer Mother Cancer CAD (coronary artery disease) Diabetes Lung disease Stroke Brother CAD (coronary artery disease) Grandfather Cancer Family/Other Cancer Dementia Denies family history of Chronic kidney disease (CKD) Suicide Anesthesia complication Bleeding disorder Social History Quit status (tobacco): has tried quititng Smoking risk assessment/counseling performed?: Yes Alcohol intake: never Counseling given: No Counseling given: No Lives independently: Yes Household members: spouse Marital status: Current occupational status: disabled History of recent travel: No Current gender identity: Male Course Vital Signs: Vital signs: Vital Signs Temperature 97.7 F 07/14/21 14:18 Pulse Rate 58 L 07/14/21 15:19 Respiratory Rate 18 07/14/21 15:19 Blood Pressure 136/80 07/14/21 15:19 Pulse Oximetry 96 07/14/21 15:19 MDM - Extremity (Nontraumatic) Medical Decision Making Patient with a lipoma present for a while to his right shoulder area and then has chronic left shoulder pain. He states his PCP sent him here today because he can get any needs pain medication. He says oxycodone at 50 mg does not help with the pain he said even hydrocodone did not make a difference. Patient shares me in the triage room that his pain was not acutely related to his [employer] work. Patient said in triage area that his pain was chronic now saying saying his pain is acute and he wants x-rays done. Patient said he was sent here by Rossi's office and that were supposed to call the doctor curriculum and instruction specialist for Dr. Richey for his shoulder pain. Advised patient that for his presenting symptoms that that would not be the course of action . patient not tried Celebrex so we will try that and see if that helps with his discomfort. Follow- up PCP. I discussed the presentation with Dr. Campos and patient's reaction to my decision. Chart reviewed and patient discussed with midlevel. Agree with assessment and plan. Discharge Plan Discharge Patient Disposition: Home Clinical Impression: Chronic pain of both shoulders Condition: Stable Prescriptions: New Celebrex 100 mg capsule 200 mg PO BID Qty: 20 0RF Voltaren Arthritis Pain 1 % gel 4 g topical QID Qty: 100 0RF Rx Instructions: apply to single knee, ankle, foot; for foot includes sole/toes/top of foot No Action fluticasone propionate [Flonase Allergy Relief] 50 mcg/actuation spray,suspension 1 spray INTRANASAL Q12H 30 Days Qty: 1 5RF Rx Instructions: USE AT 0800, 1999 oxycodone 15 mg tablet 15 mg PO QID PRN (Reason: pain) 30 Days Qty: 120 0RF Rx Instructions: fill on or after 07/01/21 oxycodone 15 mg tablet 15 mg PO QID PRN (Reason: pain) 30 Days Qty: 120 0RF Rx Instructions: fill on or after 07/31/21 gabapentin 800 mg tablet 800 mg PO TID@08,12,20 30 Days Qty: 90 1RF methocarbamol 750 mg tablet 750 mg PO TID 30 Days Qty: 90 1RF nitroglycerin [Nitrostat] 0.4 mg tablet, sublingual 0.4 mg SUBLINGUAL Q5M PRN (Reason: Chest Pain) 0RF nicotine [Nicoderm CQ] 14 mg/24 hr patch 24 hour 1 patch transdermal Q24H 42 Days Qty: 42 0RF atenolol 25 mg tablet 25 mg PO DAILY@0800 30 Days Qty: 30 5RF furosemide 20 mg tablet 20 mg PO DAILY 30 Days Qty: 30 5RF pantoprazole [Protonix] 40 mg tablet,delayed release (DR/EC) 40 mg PO DAILY Qty: 30 2RF sucralfate [Carafate] 1 gram tablet 1 g PO TID 30 Days Qty: 90 2RF Bevespi Aerosphere 9-4.8 mcg HFA aerosol inhaler 2 puff inhalation BID Qty: 10.7 5RF albuterol sulfate 90 mcg/actuation HFA aerosol inhaler 2 puff inhalation Q6H PRN (Reason: shortness of breath or wheezing) 30 Days Qty: 8.5 5RF Discharge Orders: Discharge ED (Routine); Ordered 07/14/21 Ordered By: Mario Campos Referrals: Niurka Castillo FNP-C [Primary Care Provider] - Discharge Diet: Usual diet Discharge Activity: Increase activity as tolerated Activity Restrictions/Additional Instructions: Follow-up with medical provider as directed. Take medications as prescribed. Return to the ER or your medical provider if condition worsens. Please read and understand discharge instructions. If any questions ask please. Coding Level of Care Code ED Care Program Director for Chg Fwd Exam Comprehensive
[2021-07-14 15:19] VITALS: BP 136/80; PULSE 58; RESP 18; O2SAT 96
--- NOTE | 2021-07-14 15:31 | PC.NURSE ---
DISCHARGED PATIENT TO HOME- PATIENT AND SPOUSE WERE UPSET THAT THEY WERE NOT GIVEN ANY PAIN MEDICATIONS- REQUESTING TYLENOL 4, PATIENT SIGNED DISCHARGE INSTRUCTIONS AND TOOK PRESCRIPTIONS, PATIENT WAS ABLE TO AMBULATE FROM THE ED
== END 2021-07-14 15:35 | disposition home or self-care (01) ==
PROVIDERS: Emergency Provider Nurse Practitioner Family; PCP Nurse Practitioner Family
DX: G89.29 Other chronic pain (principal); M25.512 Pain in left shoulder; M25.511 Pain in right shoulder; J44.9 Chronic obstructive pulmonary disease, unspecified; E78.5 Hyperlipidemia, unspecified; I10 Essential (primary) hypertension; Z86.19 Personal history of other infectious and parasitic diseases; Z87.891 Personal history of nicotine dependence
CPT/HCPCS: 99281

== ENCOUNTER → 2021-08-09 13:44 | Outpatient (BNVA) | payer MEDICARE, MEDICAID, SELFPAY | PROVIDERS: PCP Nurse Practitioner Family; Visit Provider Nurse Practitioner Family | DX: I10 Essential (primary) hypertension (principal); J30.89 Other allergic rhinitis; Z12.5 Encounter for screening for malignant neoplasm of prostate; E78.5 Hyperlipidemia, unspecified; J44.9 Chronic obstructive pulmonary disease, unspecified; G47.34 Idiopathic sleep related nonobstructive alveolar hypoventilation; F17.200 Nicotine dependence, unspecified, uncomplicated; K21.9 Gastro-esophageal reflux disease without esophagitis; N28.9 Disorder of kidney and ureter, unspecified | CPT/HCPCS: 80053; 80061; 84443; 85025; G0103 ==

== ENCOUNTER 2021-08-23 08:05 | Outpatient (CLI) | payer MEDICARE, MEDICAID, SELFPAY ==
--- NOTE | 2021-08-23 11:45 | MR_ITS ---
WS: [id number] MRI RIGHT SHOULDER NONCONTRAST TECHNIQUE: Sagittal T2, coronal T1, T2 and proton density imaging. Axial gradient PDE imaging. CLINICAL INFORMATION: M67.819 - Other specified disorders of synovium and tendo... COMPARISON: None. FINDINGS: Advanced degenerative arthritis AC joint with edema and hypertrophic spurring. Mild downsloping acrom ion. Slight impingement on the distal supraspinatus. Small amount of subacromial/subdeltoid fluid. Ch ronic thinning of the distal supraspinatus. Tiny insertional tear involving the distal supraspinatus anteriorly near. No tendon retraction. Normal infraspinatus. Normal teres minor. Chronic appearing at rophy of the subscapularis which appears intact Biceps tendon is absent from the bicipital groove likely chronically torn. Hypertrophic bony spurring along the medial bicipital groove at the lesser tubercle. Tiny intra-articular biceps tendon. Advanc ed degenerative cystic changes involving the greater tuberosity. Subchondral cystic change involving the glenoid. Labrum appears grossly intact. MR/MR shoulder RT wo con* [id number] IMPRESSION: 1. Advanced degenerative arthritis at the AC joint with edema and slight subac romial spurring. Slight impingement on the distal supraspinatus. 2. Tiny insertional tear distal supraspinatus insertion. No tendon retraction. Chronic atrophy of the distal supraspinatus 3. Rotator cuff is otherwise intact. 4. Biceps tendon absent from the bicipital groove consistent with chronic tear . 5. Tiny intraarticular biceps tendon appears intact. 6. Advanced subchondral cystic change involving the greater tuberosity and gle noid.
== END 2021-08-23 08:06 | disposition home or self-care (01) ==
LOC: RAD 08:07
PROVIDERS: PCP Nurse Practitioner Family; Visit Provider Nurse Practitioner Family
DX: M67.811 Other specified disorders of synovium, right shoulder (principal); M19.011 Primary osteoarthritis, right shoulder; M75.101 Unspecified rotator cuff tear or rupture of right shoulder, not specified as traumatic
CPT/HCPCS: 73221

== ENCOUNTER 2021-08-23 08:05 | Outpatient (CLI) | payer MEDICARE, MEDICAID, SELFPAY ==
--- NOTE | 2021-08-23 08:00 | MR_ITS ---
WS: [id number] MRI LEFT SHOULDER NONCONTRAST TECHNIQUE: Sagittal T2, coronal T1, T2 and proton density imaging. Axial gradient PDE imaging. CLINICAL INFORMATION: S43.402A - Unspecified sprain of left shoulder joint, ini... COMPARISON: None. 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 Slight subacromial spurring. Mild edema at the AC joint. Subacrom ial and subdeltoid fluid. Advanced chronic thinning of the distal supraspinatus. High-grade tear dist ally with tendon defect measuring 11 mm has a chronic appearance. Infraspinatus tendon is intact mild tendinopathy. Normal teres minor. Partial intrasubstance split tear with fluid-filled defect involving the subscapularis tendon. Tiny b iceps remnant in the bicipital groove likely due to chronic tear. Glenoid labrum appears grossly inta ct. Degenerative cystic change involving the greater tuberosity. Diminuitive intra-articular biceps t endon. Small joint effusion. IMPRESSION: 1. Chronic ununited midclavicular fracture. 2. Chronic thinning of the distal supraspinatus with high-grade complete tear at the insertion with fluid-filled tendon defect measuring 11 mm with slight retraction. 3. Infraspinatus is intact with tendinopathy. Normal teres minor. 4. Partial intrasubstance split tear involving the subscapularis tendon with fluid-filled tendon def ect. 5. Chronic tiny remnant biceps tendon in the bicipital groove chronically torn. Tiny intra-articular biceps tendon. 6. Cystic degenerative change greater tuberosity. Subacromial/subdeltoid fluid.
== END 2021-08-23 08:06 | disposition home or self-care (01) ==
LOC: RAD 08:07
PROVIDERS: PCP Nurse Practitioner Family; Visit Provider Orthopaedic Surgery
DX: S43.402A Unspecified sprain of left shoulder joint, initial encounter (principal); M84.412A Pathological fracture, left shoulder, initial encounter for fracture; X58.XXXA Exposure to other specified factors, initial encounter; M67.811 Other specified disorders of synovium, right shoulder; M19.011 Primary osteoarthritis, right shoulder; M75.101 Unspecified rotator cuff tear or rupture of right shoulder, not specified as traumatic
CPT/HCPCS: 73221

== ENCOUNTER 2021-08-24 09:34 | Outpatient (CLI) | payer MEDICARE, MEDICAID, SELFPAY ==
--- NOTE | 2021-08-24 10:26 | NM_ITS ---
WS: [id number] NUCLEAR MEDICINE HIDA SCAN CLINICAL INFORMATION: ABD PAIN TECHNIQUE: Following intravenous administration of 7.6 mCi of technetium 99m mebrofenin, images of th e abdomen were obtained over the course of 60 minutes. Next, gallbladder ejection fraction was determ ined by obtaining preprandial and one-hour postprandial images of the gallbladder following oral william stion of Ensure. COMPARISON: Ultrasound June 12, 2021 FINDINGS: Normal hepatic uptake at 5 minutes. Mild hepatomegaly. Gallbladder is visualized by 20 minutes. Norm al hepatic excretion. No evidence of acute cholecystitis. Normal common bile duct and small bowel act ivity. Gallbladder ejection fraction 81% within normal limits. No evidence of chronic cholecystitis. NM/NM hepatobiliary w phar* [id number] IMPRESSION: 1. No evidence of acute or chronic cholecystitis. 2. Gallbladder ejection fraction 81% within normal limits.
== END 2021-08-24 09:35 | disposition home or self-care (01) ==
PROVIDERS: PCP Nurse Practitioner Family; Visit Provider Surgery
DX: R10.9 Unspecified abdominal pain (principal)
CPT/HCPCS: 78227; A9537

== ENCOUNTER → 2021-08-30 08:13 | Outpatient (BNVA) | payer MEDICARE, MEDICAID, SELFPAY | PROVIDERS: PCP Nurse Practitioner Family; Visit Provider Nurse Practitioner Family | DX: R73.09 Other abnormal glucose (principal) | CPT/HCPCS: 83036 ==

== ENCOUNTER → 2021-09-08 09:46 | Outpatient (BNVA) | payer MEDICARE, MEDICAID, SELFPAY | PROVIDERS: PCP Nurse Practitioner Family; Visit Provider Surgery | DX: R10.9 Unspecified abdominal pain (principal) ==

== ENCOUNTER → 2021-09-13 15:50 | Outpatient (BNVA) | payer MEDICARE, MEDICAID, SELFPAY | PROVIDERS: PCP Nurse Practitioner Family; Visit Provider Orthopaedic Surgery | DX: M75.102 Unspecified rotator cuff tear or rupture of left shoulder, not specified as traumatic (principal); R22.9 Localized swelling, mass and lump, unspecified; Z87.891 Personal history of nicotine dependence | CPT/HCPCS: 99213; 99214 ==

== ENCOUNTER 2021-09-28 12:33 | Day surgery (SDC) | payer MEDICARE, MEDICAID, SELFPAY ==
[2021-09-27 12:05] VITALS: BMI 27.2
[2021-09-28] VITALS (10 sets, daily range): BP systolic 152–189; BP diastolic 88–101; PULSE 45–67; RESP 16–18; TEMP 36.1–36.4; O2SAT 92–99
[2021-09-28] MEDS: acetaminophen 500 mg Tablet 1000 MG PO (13:09)
[2021-09-28] MEDS: sodium chloride 0.9% 1,000 ML 30 ML IV (13:11)
[2021-09-28] MEDS: HYDROmorphone 1 mg/mL INJ 1 mL 0.5 MG IVP (14:09)
--- NOTE | 2021-09-28 14:11 | SUR.PREOP ---
1411-time out completed, block performed by anesthesia at bedside. Patient tolerated procedure well
--- NOTE | 2021-09-28 14:40 | ANES.PREANE2 ---
Pre-Anesthetic Assessment Height/Weight: Height 1.78 m Weight 86.183 kg Temp Pulse Resp BP Pulse Ox 97.0 F L 45 L 17 165/93 97 09/28/21 12:55 09/28/21 12:55 09/28/21 12:55 09/28/21 12:55 09/28/21 14:09 Preop Diagnosis: Rotator cuff tear shoulder, mass right shoulder Operation Date: 09/28/21 14:25 Proposed Procedures p left Shoulder Arthroscopy 14981/R22.31/m75.102(Left) - Armando Richey MD s Rotator Cuff Repair(Left) - Armando Richey MD s Excision Mass right clavicle(Right) - Armando Richey MD Familial anesthetic complications: None Was Beta Krish taken within 24 hours: Yes Was Clonidine taken within 24 hours: N/A Last intake: Intake Last Liquid Date 09/27/21 Last Liquid Time 21:00 Last Solid Date 09/27/21 Last Solid Time 21:00 Social Tobacco and No alcohol Exam alert, oriented x 3 and regular rate & rhythm Airway Submandibular: within normal limits Cervical ROM: within normal limits Mallampati: Class II Pulmonary Chronic Obstructive Pulmonary Disease and Sleep Apnea CV/HEM Hypertension Hepatic Hepatitis (C) GI Gastroesophageal Reflux Disease Metabolic Hyperlipidemia [facility] Lower Back Pain Anesthetic Plan ASA status: 3 Anesthesia: General and Regional (specify below) (Left interscalene nerve blk) Medications/Allergies Home Medications Medication Instructions Recorded Confirmed Last Taken Type nitroglycerin 0.4 mg sublingual 0.4 mg SUBLINGUAL Q5M PRN 06/21/19 09/27/21 Unknown History tablet (Nitrostat) methocarbamol 750 mg tablet 750 mg PO TID 30 Days #90 tab 06/22/21 09/28/21 09/27/21 18:00 Rx albuterol sulfate 90 mcg/actuation 2 puff INHALATION Q6H PRN 30 Days 07/03/21 09/27/21 Unknown Rx aerosol inhaler #8.5 g glycopyrrolate 9 mcg-formoterol 2 puff INHALATION BID #10.7 g 07/03/21 09/28/21 09/27/21 10:00 Rx 4.8 mcg HFA aerosol inhaler (Bevespi Aerosphere) pantoprazole 40 mg tablet,delayed 40 mg PO DAILY #30 tab 0209/28/21 09/27/21 10:00 Rx release (Protonix) sucralfate 1 gram tablet (Carafate) 1 g PO TID 30 Days #90 tab 08/07/21 09/28/21 09/27/21 18:00 Rx atenolol 25 mg tablet 25 mg PO DAILY@0800 30 Days #30 tab 08/09/21 09/28/21 09/28/21 10:30 Rx celecoxib 100 mg capsule (Celebrex) 200 mg PO BID #60 cap 08/09/21 09/28/21 09/27/21 18:00 Rx fluticasone propionate 50 1 spray INTRANASAL Q12H 30 Days #1 08/09/21 09/28/21 09/27/21 08:00 Rx mcg/actuation nasal each spray,suspension (Flonase Allergy Relief) furosemide 20 mg tablet 20 mg PO DAILY 30 Days #30 tab 08/09/21 09/28/21 09/27/21 10:00 Rx gabapentin 800 mg tablet 800 mg PO TID@08,,20 30 Days #90 08/09/21 09/28/21 09/27/21 18:00 Rx tab buprenorphine 8 mg-naloxone 2 mg 0.5 film BUCCAL TID 09/27/21 09/27/21 Unknown History sublingual film diclofenac sodium 1 % topical gel 4 g TOPICAL QID PRN 09/27/21 09/28/21 09/27/21 History (Voltaren Arthritis Pain) Allergies Allergy/AdvReac Type Severity Reaction Status Date / Time No Known Allergies Allergy Verified 09/28/21 12:56 Current Medications Generic Name Dose Route Start Last Admin Trade Name Freq PRN Reason Stop Dose Admin Hydromorphone HCl 0.5 mg 09/28/21 14:04 09/28/21 14:09 Hydromorphone 1 Mg/Ml Inj 1 Ml IVP 09/29/21 14:04 0.5 mg Q10M PRN Administration Pain level 7-10 PACU Phase I Sodium Chloride 1,000 mls @ 30 mls/hr 09/28/21 12:45 09/28/21 13:11 Sodium Chloride 0.9% IV 09/29/21 12:44 30 mls/hr .Q24H PAVAN Administration PFSH Anesthesia Medical History Anxiety Bilateral subjective nonpulsatile tinnitus without hearing loss, otoscopic finding, neurologic deficit, or head trauma Bradycardia Chronic eustachian tube dysfunction Chronic neck and back pain Cigarette smoker motivated to quit COPD (chronic obstructive pulmonary disease) Dyslipidemia Environmental and seasonal allergies Essential hypertension Facet arthropathy, lumbosacral GERD (gastroesophageal reflux disease) Hearing loss Hepatitis C Hypertension Nocturnal hypoxemia Surgical History H/O esophagogastroduodenoscopy (04/13/21) normal History of lymph node excision History of neck surgery Hx of hand surgery Status post colonoscopy Family History Father Pacemaker CAD (coronary artery disease) Clotting disorder Cancer Mother Cancer CAD (coronary artery disease) Diabetes Lung disease Stroke Brother CAD (coronary artery disease) Grandfather Cancer Family/Other Cancer Dementia Denies family history of Chronic kidney disease (CKD) Suicide Anesthesia complication Bleeding disorder Social History Smoking and tobacco status: former smoker Quit status (tobacco): has tried quititng Smoking risk assessment/counseling performed?: Yes Alcohol intake: never Counseling given: No Counseling given: No Lives independently: Yes Household members: spouse Marital status: Current occupational status: disabled History of recent travel: No Current gender identity: Male Data Anesthesia Cardiac Studies: Echocardiogram Ultrasound 10/21/20 Sestamibi Stress Test (Cardiology) 10/21/20
--- NOTE | 2021-09-28 14:42 | ANES.PROC ---
Anesthesia Procedures Procedure/Date: 09/28/21 Nerve Block ^: Nerve Block 1: Main Anesthesia: general anesthesia Time Out Performed: Yes Consent: requested by attending/covering physician, from patient, risks and benefits reviewed and patient agrees to proceed Nerve block location: interscalene (left) Anesthesia monitors applied: pulse oximetry, EKG, BP cuff and oxygen Nerve block position: semi sitting Anesthetic Used: ropivicaine 0.5% Amount of anesthesia used (mL): 30 Ultrasound used to: recognize landmarks and visualize and ID brachial plexus Nerve Stimulator Used?: No Interscalene/Femoral BLK: 2 stimuplex 22 g needle used for position and inplane approach Injection: neg aspiration of heme Patient Tolerated Procedure: well Complications: none
--- NOTE | 2021-09-28 15:32 | W.PM.OPSUD ---
Surgery/Procedure H&P Update DATE OF PROCEDURE: September 28, 2021 DATE H&P PERFORMED: 09/13/21 H&P UPDATE INFORMATION: I have reviewed H&P completed within last 30 days PREOP DIAGNOSIS: Rotator cuff tear shoulder, mass right shoulder PLANNED PROCEDURE: Operation Date: 09/28/21 14:25 Proposed Procedures p left Shoulder Arthroscopy 95402/R22.31/m75.102(Left) - Armando Richey MD s Rotator Cuff Repair(Left) - Armando Richey MD s Excision Mass right clavicle(Right) - Armando Richey MD
--- NOTE | 2021-09-28 17:59 | PM.OP ---
Operative Report Date of procedure: September 28, 2021 Pre-op diagnosis: Preop Diagnosis Rotator cuff tear and impingement left shoulder shoulder, mass dorsum right shoulder Post-op diagnosis: same Procedure done: Arthroscopic repair left rotator cuff, arthroscopic left subacromial decompression, open excision mass dorsum right shoulder Specimens removed/disposition: A cystic mass was removed from the dorsum of the right shoulder overlying the clavicle and sent to pathology Surgeon: Armando Richey Anesthesia: General and Nerve Block (Interscalene block) Estimated blood loss (mL): 10 Findings: The patient had a full-thickness tear of his left rotator cuff beginning at the bicipital groove and extending posteriorly approximately 2 cm with approximately 2 cm of tendinous retraction. The rotator cuff itself was of reasonable quality and very mobile. He had prominent spurring of the anterior edge of his acromion. His humeral head and glenoid are free of chondromalacia. No labral tearing was identified. His biceps tendon was absent consistent with a chronic tear. He had a loculated in its entirety. Cystic mass overlying the right clavicle approximately 1 cm in diameter Condition: stable Disposition: PACU Procedure: The patient was taken to the operating room after an interscalene block was provided by anesthesia. He is given 2 g of Ancef. He was initially prepped and draped in the lateral position with his left arm and 15 pounds of traction. A timeout was performed. The shoulder was entered through his posterior portal with the scope placed in the glenohumeral joint. The full-thickness tearing the rotator cuff was noted. The chronic rupture of the biceps is identified. No significant chondromalacia of the glenohumeral joint was noted. The scope was then directed to the subacromial space. The anterior and lateral working portal were opened with a scalpel blade. Initial attention was paid to the anterior acromion. Working through the lateral portal a acromionizer was used to remove approximately 4 mm of anterior and inferior acromion, converting the acromion to a type I morphology. Attention was then focused on the rotator cuff. The footprint on the greater tuberosity was debrided down with an incisor shaver. Through a lateral stab wound a Chester and Nephew Helicoil 4.5 mm anchor was placed. A Chester and Nephew FirstPass suture passer was used passed each limb of the tape through the rotator cuff approximately a centimeter from the edge and a centimeter apart through the posterior rotator cuff. A second anchor was placed in the anterior medial rotator cuff footprint and sutures passed in identical fashion. Each suture was secured with a sliding Chapman knot and a half hitch drawing the medial cuff to bone. Next 1 suture from each anchor was drawn through the lateral cannula. A Chester [employer] Nephew Helicoil knotless anchor was placed posterior laterally drawing a suture from each anchor over the lateral cuff. A second Chester and Nephew Helicoil knotless anchor was placed anterior laterally I drawing the remaining sutures over the lateral rotator cuff. The repair was probed and found to be stable. Cameras were removed. Portals were closed with 3-0 Prolene. 4 x 4's, ABD pads, and Medipore dressing was applied. The patient was then rolled over supine del axis of the right shoulder. The right dorsal shoulder was prepped with Betadine and walled off with 4 x 4's. The skin was infiltrated with 1% lidocaine without epi for hemostasis and analgesia. A 3 cm long incision was made dorsally over the palpable mass and dissection carried down through the skin or loculated bluish cystic ganglion appearing structure was identified. This was dissected free from surrounding fatty tissue and the overlying a clavicle with Metzenbaum scissors. The wound was irrigated with saline. Deep tissues were closed with 2-0 Vicryl. The skin was closed with 3-0 Prolene. The incision was covered with Xeroflo gauze 4 x 4's and a Medipore dressing. The patient was placed in a sling, extubated, and taken to recovery room in stable condition.
[2021-09-28] MEDS: meperidine 50 mg/mL INJ 12.5 MG IVP (18:05)
[2021-09-28] MEDS: oxyCODONE 5 mg IR Tab/Cap PO (18:48)
--- NOTE | 2021-09-29 07:35 | ANE.PACU2 ---
Inpatient post-anesthesia follow up: Airway intact: Yes Vital signs: Temperature 97.6 F Pulse Rate 54 Respiratory Rate 18 Blood Pressure 184/92 Pulse Oximetry 95 Oxygen Delivery Me thod Room Air Oxygen Flow Rate 6 Fraction of Inspir ed Oxygen Hydration adequate: Yes Nausea and vomiting: No Pain level: 2 Mental status: Baseline
== END 2021-09-28 19:23 | disposition home or self-care (01) ==
PROVIDERS: PCP Nurse Practitioner Family; Visit Provider Orthopaedic Surgery
PROC: (CPT 29805; principal; 2021-09-28 14:25)
PROC: (CPT 11401; 2021-09-28 14:25)
PROC: (CPT 11401; 2021-09-28 14:25)
DX: M75.102 Unspecified rotator cuff tear or rupture of left shoulder, not specified as traumatic (principal); M25.812 Other specified joint disorders, left shoulder; R22.31 Localized swelling, mass and lump, right upper limb; J44.9 Chronic obstructive pulmonary disease, unspecified; G47.30 Sleep apnea, unspecified; K21.9 Gastro-esophageal reflux disease without esophagitis; E78.5 Hyperlipidemia, unspecified; Z86.19 Personal history of other infectious and parasitic diseases; F41.9 Anxiety disorder, unspecified; I10 Essential (primary) hypertension
CPT/HCPCS: 11401; 12031; 29826; 29827; 64415; 76942; 88307; C1713; J0690; J1100; J1170; J2175; J2405; J2704; J2795; J3010; J7030

== ENCOUNTER → 2021-12-05 14:46 | Outpatient (BNVA) | payer MEDICAID, SELFPAY | PROVIDERS: PCP Nurse Practitioner Family; Visit Provider Orthopaedic Surgery | DX: Z98.890 Other specified postprocedural states (principal) | CPT/HCPCS: 99024 ==

== ENCOUNTER → 2022-01-03 13:12 | Outpatient (BNVA) | payer MEDICAID, SELFPAY | PROVIDERS: PCP Nurse Practitioner Family; Visit Provider Orthopaedic Surgery | DX: Z98.890 Other specified postprocedural states (principal); M75.101 Unspecified rotator cuff tear or rupture of right shoulder, not specified as traumatic | CPT/HCPCS: 99024 ==

== ENCOUNTER → 2022-01-18 09:07 | Outpatient (BNVA) | payer MEDICAID, SELFPAY | PROVIDERS: PCP Nurse Practitioner Family; Visit Provider Nurse Practitioner Family | DX: I10 Essential (primary) hypertension (principal); J44.9 Chronic obstructive pulmonary disease, unspecified; E78.5 Hyperlipidemia, unspecified; F17.200 Nicotine dependence, unspecified, uncomplicated; G47.34 Idiopathic sleep related nonobstructive alveolar hypoventilation; K21.9 Gastro-esophageal reflux disease without esophagitis; J30.89 Other allergic rhinitis; N28.9 Disorder of kidney and ureter, unspecified; G47.33 Obstructive sleep apnea (adult) (pediatric) | CPT/HCPCS: 80053; 80061; 83721; 85025 ==

== ENCOUNTER → 2022-02-06 10:26 | Outpatient (BNVA) | payer MEDICAID, SELFPAY | PROVIDERS: PCP Nurse Practitioner Family; Visit Provider Orthopaedic Surgery | DX: Z98.890 Other specified postprocedural states (principal) | CPT/HCPCS: 99212 ==

== ENCOUNTER → 2022-05-17 15:57 | Outpatient (BNVA) | payer MEDICAID, SELFPAY | PROVIDERS: PCP Nurse Practitioner Family; Visit Provider Nurse Practitioner Family | DX: R05.9 Cough, unspecified (principal); B34.9 Viral infection, unspecified | CPT/HCPCS: 87400 ==

== ENCOUNTER → 2022-06-21 09:54 | Outpatient (BNVA) | payer MEDICARE, MEDICAID, SELFPAY | PROVIDERS: PCP Nurse Practitioner Family; Visit Provider Nurse Practitioner Family | DX: I10 Essential (primary) hypertension (principal); J44.9 Chronic obstructive pulmonary disease, unspecified; E78.5 Hyperlipidemia, unspecified; G47.34 Idiopathic sleep related nonobstructive alveolar hypoventilation; F17.200 Nicotine dependence, unspecified, uncomplicated; J30.89 Other allergic rhinitis; K21.9 Gastro-esophageal reflux disease without esophagitis; G89.29 Other chronic pain; G47.33 Obstructive sleep apnea (adult) (pediatric); N28.9 Disorder of kidney and ureter, unspecified; F41.9 Anxiety disorder, unspecified | CPT/HCPCS: 80053; 80061; 84443; 85025 ==

== ENCOUNTER → 2022-07-30 10:05 | Outpatient (BNVA) | payer MEDICARE, MEDICAID, SELFPAY | PROVIDERS: PCP Nurse Practitioner Family; Visit Provider Nurse Practitioner Family | DX: R00.1 Bradycardia, unspecified (principal); R07.9 Chest pain, unspecified; F41.9 Anxiety disorder, unspecified | CPT/HCPCS: 80053; 84484; 85025 ==

== ENCOUNTER 2022-09-04 09:51 | Outpatient (CLI) | payer MEDICARE, MEDICAID, SELFPAY ==
--- NOTE | 2022-09-04 10:00 | CT_ITS ---
WS: [id number] LDCT LUNG CANCER SCREENING TECHNIQUE: Noncontrast CT of the chest with coronal and sagittal reformatted images. CLINICAL INFORMATION: CHRONIC OBSTRUCTIVE LUNG DISEASE COMPARISON: CT September 09, 2020 DLP: 79.21 mGy.cm DIvol: Mean CTDIvol: 1.60 (mGy),Mean CTDIvol: 1.60 (mGy) All CT scans at [facility] use at least one of these dose optimization techniques: automat ed exposure control; mA and/or kV adjustment per patient size (includes targeted exams where dose is matched to clinical indication); or iterative reconstruction. FINDINGS: Mild chronic emphysematous changes. Trace RIGHT pleural fluid with chronic appearing RIGHT basilar round atelectasis and fibrosis. This i s similar to the prior examination. Bronchiectasis in the lung bases. Patchy tree-in-bud and airspace infiltrates in the LEFT lower lobe medially. Recommend correlation for pneumonia. This may be infect ious or inflammatory. Additional tree-in-bud type opacities in the RIGHT middle lobe and lingula like ly inflammatory. Additional tree-in-bud opacities in the LEFT upper lobe anteriorly. No mediastinal or hilar lymphadenopathy. Aortic calcification. Coronary calcification. No axillary ly mphadenopathy. CT/CT lung screening [id number] IMPRESSION: Tree-in-bud opacities in the LEFT lower lobe with airspace infiltra arina. Recommend correlation for pneumonitis. Consider 3 month follow-up chest CT to assess resolution. LUNG-RADS: 3-Probably Benign FOLLOW UP: 3 Month LDCT
== END 2022-09-04 09:52 | disposition home or self-care (01) ==
LOC: RAD 09:57
PROVIDERS: PCP Nurse Practitioner Family; Visit Provider Nurse Practitioner Family
DX: Z12.2 Encounter for screening for malignant neoplasm of respiratory organs (principal); Z87.891 Personal history of nicotine dependence
CPT/HCPCS: 71271

== ENCOUNTER → 2022-09-12 11:10 | Outpatient (BNVA) | payer MEDICARE, MEDICAID, SELFPAY | PROVIDERS: PCP Nurse Practitioner Family; Visit Provider Internal Medicine Cardiovascular Disease | DX: R07.89 Other chest pain (principal); I10 Essential (primary) hypertension; Z79.891 Long term (current) use of opiate analgesic; K21.9 Gastro-esophageal reflux disease without esophagitis; J44.9 Chronic obstructive pulmonary disease, unspecified; G47.33 Obstructive sleep apnea (adult) (pediatric); Z87.891 Personal history of nicotine dependence | CPT/HCPCS: 99214 ==

== ENCOUNTER 2022-12-10 12:23 | Outpatient (CLI) | payer MEDICARE, MEDICAID, SELFPAY ==
--- NOTE | 2022-12-10 12:35 | CT_ITS ---
WS: [id number] LDCT LUNG CANCER SCREENING TECHNIQUE: Noncontrast CT of the chest with coronal and sagittal reformatted images. CLINICAL INFORMATION: ABNORMAL FINDINGS ON DIAGNOSTIC IMAGING OF LUNG COMPARISON: CT September 04, 2022 DLP: 63.99 mGy.cm DIvol: Mean CTDIvol: 1.40 (mGy) All CT scans at [facility] use at least one of these dose optimization techniques: automat ed exposure control; mA and/or kV adjustment per patient size (includes targeted exams where dose is matched to clinical indication); or iterative reconstruction. FINDINGS: Previously described bronchiectasis and tree-in-bud infiltrates in the LEFT lower lobe have resolved compared to previous. LEFT lung is well aerated. Similar-appearing bronchiectasis and patchy opacitie s in the RIGHT lower lobe. Tiny RIGHT pleural effusion with subsegmental atelectasis. Patchy opacitie s or round atelectasis RIGHT lower lobe is unchanged since 2020. Upper lungs are well aerated. Mild aortic calcification. Normal caliber thoracic aorta. No mediastina l or hilar lymphadenopathy. No axillary lymphadenopathy. A few Schmorl's nodes in the mid thoracic spine. CT/CT lung screening [id number] IMPRESSION: LUNG-RADS: 2-Benign Appearance or Behavior FOLLOW UP: 12 Month: Continue annual screening with LDCT
== END 2022-12-10 12:24 | disposition home or self-care (01) ==
LOC: RAD 12:27
PROVIDERS: PCP Nurse Practitioner Family; Visit Provider Nurse Practitioner Family
DX: Z12.2 Encounter for screening for malignant neoplasm of respiratory organs (principal); R91.8 Other nonspecific abnormal finding of lung field; Z87.891 Personal history of nicotine dependence
CPT/HCPCS: 71271

== ENCOUNTER → 2022-12-14 11:05 | Outpatient (BNVA) | payer MEDICARE, MEDICAID, SELFPAY | PROVIDERS: PCP Nurse Practitioner Family; Visit Provider Podiatrist Foot & Ankle Surgery | DX: M84.371A Stress fracture, right ankle, initial encounter for fracture; S93.491A Sprain of other ligament of right ankle, initial encounter; X58.XXXA Exposure to other specified factors, initial encounter; M25.373 Other instability, unspecified ankle; M76.71 Peroneal tendinitis, right leg; B19.20 Unspecified viral hepatitis C without hepatic coma | CPT/HCPCS: 73610; 99204 ==

== ENCOUNTER → 2022-12-19 09:52 | Outpatient (BNVA) | payer MEDICARE, MEDICAID, SELFPAY | PROVIDERS: PCP Nurse Practitioner Family; Visit Provider Internal Medicine Cardiovascular Disease | DX: E78.5 Hyperlipidemia, unspecified (principal); G47.33 Obstructive sleep apnea (adult) (pediatric); R09.02 Hypoxemia; I10 Essential (primary) hypertension; Z99.89 Dependence on other enabling machines and devices; F17.210 Nicotine dependence, cigarettes, uncomplicated | CPT/HCPCS: 99214 ==

== ENCOUNTER 2022-12-25 10:10 | Outpatient (CLI) | payer MEDICARE, MEDICAID, SELFPAY ==
--- NOTE | 2022-12-25 10:21 | USCV_ITS ---
Scar Lewis Age: 62 Gender: M : 1960 Exam Date: 12/25/2022 10:38 Ordering Phys: Tyra Tipton Technologist: Exam Location: [facility] [place] Indication: pad pain RIGHT LEFT Brachial 151.00 mmHg Brachial 144.00 mmHg Pressure (mmHg) Waveform Pressure (mmHg) Waveform 158.00 LABORER DEMOLITION 148.00 152.00 DPA 158.00 1.00 Ankle/Brachial Index 1.00 122.00 Pre-Exercise Toe Pressure 104.00 0.81 Pre-Exercise Toe/Brachial Index 0.69 FINDINGS Resting NETO of 1.0 on the right and 1.0 on the left Resting TBI is 0.81 on the right and 0.69 on the left CONCLUSIONS 1. Normal resting NETO and TBI on the right side, suggesting no significant arterial obstruction 2. Normal resting NETO with a slightly diminished resting TBI on the left side, suggesting mild peripheral artery disease, possibly involving the distal vessels Dr Justyn Forbes MD [facility] (Electronically Signed) Final Date: 25 December 2022 20:25 S
== END 2022-12-25 10:11 | disposition home or self-care (01) ==
PROVIDERS: PCP Nurse Practitioner Family; Visit Provider Nurse Practitioner Family
DX: I10 Essential (primary) hypertension (principal); I73.9 Peripheral vascular disease, unspecified
CPT/HCPCS: 93922

== ENCOUNTER 2023-01-02 09:15 | Outpatient (CLI) | payer MEDICARE, MEDICAID, SELFPAY ==
--- NOTE | 2023-01-02 09:30 | MR_ITS ---
WS: [id number] MRI RIGHT ANKLE without CONTRAST. COMPARISON: Ankle radiographs 12/14/2022 Multiplanar, multisequence imaging is performed without contrast. Subchondral cyst medial malleolus. The deltoid ligament is intact. There is no definite changes to beasley ggest an acute fracture. This is probably related to old remote injury. There is no marrow edema with in the calcaneus or talus. Achilles tendon is normal. Very small amount of fluid in the posterior joint recess of the ankle. No osteochondral lesions of the talar dome. Very small and poorly visualized anterior talofibular ligament with adjacent fluid. High-grade sprain likely. Some of these features may be chronic as there is mild thickening of the adjacent capsule. T he posterior talofibular ligament is normal. Normal course and caliber of the peroneal tendons. There is no split tear identified. No displacement . Flexor hallucis longus, tibialis posterior tendon and the flexor digitorum longus are all normal co urse and caliber. No tenosynovitis or tear identified. MR/MR ankle RT wo con* [id number] IMPRESSION: 1. Chronic appearing osseous injury involving the medial malleolus. 2. Very small caliber anterior talofibular ligament with adjacent edema. There is also adjacent thickening of the joint capsule suggesting chronic injury. Fi ndings suggest acute sprain on superimposed on chronic injury. 3. Posterior talofibular ligament is normal. 4. No significant joint effusion. 5. Normal peroneal tendons. No split tear.
== END 2023-01-02 09:16 | disposition home or self-care (01) ==
LOC: RAD 09:17
PROVIDERS: PCP Nurse Practitioner Family; Visit Provider Podiatrist Foot & Ankle Surgery
DX: S93.401A Sprain of unspecified ligament of right ankle, initial encounter (principal); M84.373A Stress fracture, unspecified ankle, initial encounter for fracture; X58.XXXA Exposure to other specified factors, initial encounter
CPT/HCPCS: 73721

== ENCOUNTER → 2023-02-25 08:25 | Outpatient (BNVA) | payer MEDICARE, MEDICAID, SELFPAY | PROVIDERS: PCP Nurse Practitioner Family; Visit Provider Surgery | DX: S80.851A Superficial foreign body, right lower leg, initial encounter (principal); X58.XXXA Exposure to other specified factors, initial encounter | CPT/HCPCS: 99203; 99214 ==

== ENCOUNTER → 2023-07-17 11:40 | Outpatient (BNVA) | payer MEDICARE, MEDICAID, SELFPAY | PROVIDERS: PCP Nurse Practitioner Family; Referring Provider Nurse Practitioner Family; Visit Provider Surgery | DX: K80.20 Calculus of gallbladder without cholecystitis without obstruction | CPT/HCPCS: 99214 ==

== ENCOUNTER → 2023-07-23 09:53 | Outpatient (BNVA) | payer MEDICARE, MEDICAID, SELFPAY | PROVIDERS: PCP Nurse Practitioner Family; Visit Provider Surgery | DX: K80.20 Calculus of gallbladder without cholecystitis without obstruction (principal) | CPT/HCPCS: 80048; 80076; 85025 ==

== ENCOUNTER 2023-07-24 08:20 | Outpatient (CLI) | payer MEDICARE, MEDICAID, SELFPAY ==
--- NOTE | 2023-07-24 08:45 | US_ITS ---
WS: [id number] RIGHT UPPER QUADRANT ULTRASOUND HISTORY: RUQ pain COMPARISON: None available. Liver: 15.2 cm in length. Normal size liver and echogenicity. No bile duct dilatation or mass. Portal Vein: Normal hepatopetal flow with monophasic waveform. Gallbladder: Normally distended gallbladder with no stones or wall thickening. CBD: 0.7 cm Pancreas: Normal size and echogenicity. Right kidney: 10.6 cm in length. Normal size and echogenicity. No hydronephrosis or mass. Aorta and IVC: Unremarkable abdominal aorta and IVC. No ascites. IMPRESSION: Normal RIGHT upper quadrant ultrasound. Common bile duct diameter is at top normal size.
== END 2023-07-24 08:21 | disposition home or self-care (01) ==
LOC: RAD 08:20
PROVIDERS: PCP Nurse Practitioner Family; Visit Provider Surgery
DX: R10.11 Right upper quadrant pain (principal)
CPT/HCPCS: 76705

== ENCOUNTER → 2023-07-30 11:59 | Outpatient (BNVA) | payer MEDICARE, MEDICAID, SELFPAY | PROVIDERS: PCP Nurse Practitioner Family; Visit Provider Surgery | DX: Z09 Encounter for follow-up examination after completed treatment for conditions other than malignant neoplasm | CPT/HCPCS: 99212 ==

== ENCOUNTER 2023-08-09 07:55 | Outpatient (CLI) | payer MEDICARE, MEDICAID, SELFPAY ==
--- NOTE | 2023-08-09 07:58 | MR_ITS ---
WS: [id number] MRI RIGHT SHOULDER NONCONTRAST TECHNIQUE: Sagittal T2, coronal T1, T2 and proton density imaging. Axial gradient PDE imaging. CLINICAL INFORMATION: INJURY OF R ROTATOR CUFF COMPARISON: MRI 08/23/2021 FINDINGS: Advanced degenerative arthritis AC joint with edema and hypertrophic spurring. Small associated gang lion cyst at the AC joint capsule measuring 8 x 5 mm. Mild downsloping acromion. Impingement on the d istal supraspinatus. Small amount of subacromial/subdeltoid fluid. Chronic thinning of the distal sup raspinatus. Tiny insertional tear involving the distal supraspinatus with tendinopathy similar to pre vious. Tiny insertional tear distal infraspinatus with tendinopathy. Chronic thinning of the infraspi natus. Normal teres minor. Chronic appearing atrophy and tendinopathy of the subscapularis which appears int act. Biceps tendon is absent from the bicipital groove likely chronically torn and unchanged from pre vious. Tiny intra-articular biceps tendon. Advanced degenerative cystic changes involving the greater tuberosity. Subchondral cystic change involving the glenoid. Labrum appears grossly intact. Small irena int effusion. Small amount of subacromial fluid. IMPRESSION: 1. Advanced degenerative arthritis AC joint progressed compared to previous with subacromial spurrin g and hypertrophic changes. Small associated ganglion cyst at the AC joint capsule measuring 8 x 5 mm . 2. Atrophy with distal insertional tear of the supraspinatus similar to previous. Progressed tendino nghia and atrophy of the distal supraspinatus. 3. Tendinopathy infraspinatus with a tiny insertional tear appears new compared to previous. Chronic thinning of the infraspinatus. 4. Chronic appearing partial tear with atrophy and tendinopathy subscapularis 5. Biceps tendon absent from the bicipital groove unchanged from previous. 6. Advanced subchondral cystic changes involve the greater tuberosity and glenoid similar to previou s.
== END 2023-08-09 07:56 | disposition home or self-care (01) ==
LOC: RAD 07:56
PROVIDERS: PCP Nurse Practitioner Family; Visit Provider Nurse Practitioner Family
DX: M75.111 Incomplete rotator cuff tear or rupture of right shoulder, not specified as traumatic (principal); M19.011 Primary osteoarthritis, right shoulder; M85.611 Other cyst of bone, right shoulder; X58.XXXA Exposure to other specified factors, initial encounter
CPT/HCPCS: 73221

== ENCOUNTER → 2023-08-12 08:52 | Outpatient (BNVA) | payer MEDICARE, MEDICAID, SELFPAY | PROVIDERS: PCP Nurse Practitioner Family; Referring Provider Nurse Practitioner Family; Visit Provider Nurse Practitioner Family | DX: I10 Essential (primary) hypertension (principal); F17.210 Nicotine dependence, cigarettes, uncomplicated | CPT/HCPCS: 99213 ==

== ENCOUNTER 2023-08-13 07:53 | Outpatient (CLI) | payer MEDICARE, MEDICAID, SELFPAY ==
--- NOTE | 2023-08-13 08:00 | NM_ITS ---
WS: [id number] NUCLEAR MEDICINE HIDA SCAN CLINICAL INFORMATION: cholelithiasis TECHNIQUE: Following intravenous administration of 7.1 mCi of technetium 99m mebrofenin, images of th e abdomen were obtained over the course of 60 minutes. Next, gallbladder ejection fraction was determ ined by obtaining preprandial and one-hour postprandial images of the gallbladder following oral william stion of Ensure. COMPARISON: None. FINDINGS: Normal hepatic uptake at 5 minutes. Normal hepatic excretion. Normal common bile duct and small bowel activity. Gallbladder is visualized by 30 minutes. No evidence of acute cholecystitis. Gallbladder ejection fraction 92% within normal limits. No evidence of chronic cholecystitis. IMPRESSION: 1. No evidence of acute or chronic cholecystitis. 2. Gallbladder ejection fraction 92% within normal limits. No evidence of chronic cholecystitis.
== END 2023-08-13 07:54 | disposition home or self-care (01) ==
PROVIDERS: PCP Nurse Practitioner Family; Visit Provider Surgery
DX: K80.20 Calculus of gallbladder without cholecystitis without obstruction (principal)
CPT/HCPCS: 78227; A9537

== ENCOUNTER → 2023-08-21 11:31 | Outpatient (BNVA) | payer MEDICARE, MEDICAID, SELFPAY | PROVIDERS: PCP Nurse Practitioner Family; Visit Provider Surgery | DX: K21.9 Gastro-esophageal reflux disease without esophagitis (principal); M12.811 Other specific arthropathies, not elsewhere classified, right shoulder; M75.111 Incomplete rotator cuff tear or rupture of right shoulder, not specified as traumatic | CPT/HCPCS: 73030; 99204; 99213 ==

== ENCOUNTER → 2023-08-27 10:42 | Outpatient (BNVA) | payer MEDICARE, MEDICAID, SELFPAY | PROVIDERS: PCP Nurse Practitioner Family; Visit Provider Nurse Practitioner Family | DX: I10 Essential (primary) hypertension (principal); F17.210 Nicotine dependence, cigarettes, uncomplicated | CPT/HCPCS: 99213 ==

== ENCOUNTER 2023-09-04 11:07 | Outpatient (CLI) | payer MEDICARE, MEDICAID, SELFPAY ==
[2023-09-04 11:20] VITALS: PULSE 59; RESP 18; O2SAT 98
[2023-09-04] MEDS: albuterol 2.5 mg/3 mL Neb INHALATION (11:20)
[2023-09-04 11:24] VITALS: PULSE 58
== END 2023-09-04 11:08 | disposition home or self-care (01) ==
PROVIDERS: PCP Nurse Practitioner Family; Visit Provider Internal Medicine Pulmonary Disease
DX: J44.9 Chronic obstructive pulmonary disease, unspecified (principal)
CPT/HCPCS: 94060; 94726; 94729; J7613

== ENCOUNTER 2023-11-07 13:02 | Outpatient (CLI) | payer MEDICARE, MEDICAID, SELFPAY ==
--- NOTE | 2023-11-07 13:10 | CT_ITS ---
WS: [id number] CT chest wo con [id number] HISTORY: PLEURAL EFFUSION TECHNIQUE: Axial imaging performed through the thorax. Coronal and sagittal reformats are submitted. [facility] use at least one of these dose optimization techniques: automated exposure control; mA and/or kV adjustment per patient size (includes targeted exams where dose is mat ched to clinical indication); or iterative reconstruction. CONTRAST: None DLP: 360.00 mGy.cm COMPARISON: Lung screening 12/10/2022 Lungs and central airway: Slight elevation of the RIGHT diaphragm. There is mild subsegmental atelect asis in the LEFT lower lobe along with pleural thickening. Linear nodular-like atelectasis at the RIG HT lung base. No progression since the prior study. No pneumonia or pulmonary nodule. Pleura: Pleural thickening at the RIGHT lung base. No effusion. Heart and pericardium: Normal size heart with no pericardial effusion. Mediastinum and john: Small mediastinal and hilar lymph nodes. Vessels: Mild atherosclerosis aorta. No aneurysm. Normal size pulmonary artery. Chest wall and lower neck: No soft tissue masses. Upper abdomen: The visualized adrenal glands are negative. Constipation noted in the splenic flexure. Osseous structures: No destructive process. CT/CT chest wo con [id number] IMPRESSION: 1. No pleural effusion. 2. Subsegmental atelectasis RIGHT lung base with pleural thickening. Similar t o prior studies. 3. Slight elevation of the RIGHT hemidiaphragm unchanged. 4. Mild atherosclerosis aorta.
== END 2023-11-07 13:03 | disposition home or self-care (01) ==
LOC: RAD 13:03
PROVIDERS: Absent Provider Internal Medicine Pulmonary Disease; PCP Nurse Practitioner Family; Visit Provider Nurse Practitioner Family
DX: I70.0 Atherosclerosis of aorta (principal); J90 Pleural effusion, not elsewhere classified
CPT/HCPCS: 71250

== ENCOUNTER → 2023-12-25 10:00 | Outpatient (BNVA) | payer MEDICARE, MEDICAID, SELFPAY | PROVIDERS: PCP Nurse Practitioner Family; Visit Provider Internal Medicine Cardiovascular Disease | DX: I10 Essential (primary) hypertension (principal); E78.5 Hyperlipidemia, unspecified; R06.00 Dyspnea, unspecified; F17.219 Nicotine dependence, cigarettes, with unspecified nicotine-induced disorders; R00.1 Bradycardia, unspecified | CPT/HCPCS: 99214 ==

== ENCOUNTER → 2024-04-09 13:10 | Outpatient (BNVA) | payer MEDICARE, MEDICAID, SELFPAY | PROVIDERS: PCP Nurse Practitioner Family; Visit Provider Podiatrist Foot & Ankle Surgery | DX: M79.671 Pain in right foot (principal); M72.2 Plantar fascial fibromatosis; M24.571 Contracture, right ankle | CPT/HCPCS: 73630; 99213 ==

== ENCOUNTER 2024-05-14 13:30 | Emergency (ER) | payer MEDICARE, MEDICAID, SELFPAY ==
[2024-05-14 14:04] VITALS: BP 148/82; PULSE 58; TEMP 36.6; O2SAT 95; BMI 25.8
--- NOTE | 2024-05-14 14:50 | XRR_ITS ---
PROCEDURE INFORMATION: Exam: XR Chest Exam date and time: 05/14/2024 4:04 PM Age: 63 years old Clinical indication: Pain; Angina pectoris; Additional info: Cp TECHNIQUE: Imaging protocol: Radiologic exam of the chest. Views: 1 view. COMPARISON: CT chest wo con [id number] 11/07/2023 1:15 PM FINDINGS: Lungs: There is no pulmonary venous congestion. There is some mild subsegmental atelectasis at the left lung base. Pleural spaces: There is some minimal focal scarring in the periphery of the right lower lobe in the costophrenic angle not significantly changed. Heart/Mediastinum: Heart is within normal limits of size. Bones/joints: Degenerative changes are present in the thoracic spine. Resection of the distal ends of both clavicles again identified. Old healed left rib fractures again identified. XR/XR chest 1V portable [id number] IMPRESSION: Mild basilar atelectasis or scarring.
--- NOTE | 2024-05-14 14:50 | ECG_ITS ---
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 Measurements Intervals Ledger Rate: 51 P: 61 GA: 176 QRS: 59 QRSD: 77 T: 56 QT: 405 QTc: 375 Interpretive Statements SINUS BRADYCARDIA SEPTAL MYOCARDIAL INFARCTION , PROBABLY OLD [40+ ms Q WAVE IN V1/V2] Compared to ECG 10/20/2020 21:09:40 Myocardial infarct finding now present Sinus arrhythmia no longer present Electronically Signed On 05-14-2024 17:57:33 SUPERVISOR ELECTRONICS INSPECTION by Miki Lawrence M.D. [id number]
[2024-05-14 15:06] LABS: Basophils % 0.3 %; Eosinophils # 0.3 10^3/uL (0.0-0.8); Eosinophils % 4.2 %; Hematocrit 41.6 % (37-53); Lymphocytes # 2.2 10^3/uL (0.8-4.8); Lymphocytes % 31.5 %; Mean Corpuscular HGB Conc 33.2 g/dL (30-55); Mean Corpuscular Hemoglobin 30.8 pg (27-33); Mean Corpuscular Volume 92.9 fl (82-101); Mean Platelet Volume 9.6 fL (7.4-10.4); Monocytes # 0.5 10^3/uL (0.2-0.9); Monocytes % 6.8 %; Neutrophils # 3.94 10^3/uL (1.8-7.7); Neutrophils % 57.1 %; Nucleated Red Blood Cells % 0 %; Platelet Count 221 10^3/cmm (157-399); Red Blood Count 4.48 10^6/uL (3.85-5.65); Red Cell Distribution Width 12.1 % (12.1-15.1); White Blood Count 6.91 10^3/uL (3.29-11.43)
[2024-05-14 15:24] LABS: Troponin(5th) Baseline 13 ng/L (0-15)
[2024-05-14 15:26] LABS: Alanine Aminotransferase 26 U/L (0-41); Albumin Level 4.4 g/dL (3.5-5.2); Alkaline Phosphatase 86 U/L (40-130); Anion Gap 10.6 (5-19); Aspartate Amino Transferase 27 U/L (0-40); Blood Urea Nitrogen 11 mg/dL (8-23); Calcium 9.9 mg/dL (8.5-10.5); Carbon Dioxide 32 mmol/L (22-29); Chloride 100 mmol/L (98-107); Creatinine Clr Calc Pharmacy 78.2922; Globulin 2.4 g/dL (1.3-4.6); Glomerular Filtration Rate 75.2 mL/min (90-130); Glucose 80 mg/dL (65-115); Lipase 37 U/L (13-60); Osmolality Calculated 284 mOsm/kg (285-295); Potassium 4.6 mmol/L (3.5-5.1); Sodium 138 mmol/L (136-145); Total Bilirubin 0.3 mg/dL (0.15-1.2); Total Protein 6.8 g/dL (6.6-8.7)
[2024-05-14 15:58] VITALS: BP 154/82; PULSE 52; O2SAT 92
--- NOTE | 2024-05-14 16:08 | ED_ITS ---
HPI - General Adult 2 General: Chief complaint: General Medical Stated complaint: high bp Time Seen by Provider: 05/14/24 15:32 History of Present Illness: 63-year-old male presents emergency room complaining of elevated blood pressure and chest pressure intermittently. He patient is on antihypertensives no recent changes in his medications. He has not missed any doses or run out of any of his meds. No fever sweats chills no nausea vomiting or diarrhea. No radiation of chest discomfort no shortness of breath or diaphoresis associated with it. Associated symptoms: Deny chest pain, dyspnea or rash Related Data Home Medications Medication Instructions Recorded Confirmed buprenorphine 8 mg-naloxone 2 mg 0.5 film buccal TID PRN overdose 09/27/21 05/14/24 sublingual film fluticasone fur. 100 mcg-umeclid 1 inh inhalation DAILY 10/17/23 05/14/24 62.5 mcg-vilant 25 mcg inhalat.powder (Trelegy Ellipta) amlodipine 2.5 mg tablet 2.5 mg PO DAILY 05/14/24 05/14/24 atenolol 25 mg tablet 25 mg PO QAM 05/14/24 05/14/24 atorvastatin 40 mg tablet 40 mg PO DAILY 05/14/24 05/14/24 Previous Rx's Medication Instructions Recorded albuterol sulfate 90 mcg/actuation 2 puff inhalation Q6H PRN 07/03/21 aerosol inhaler shortness of breath or wheezing 30 days #8.5 grams celecoxib 100 mg capsule (Celebrex) 200 mg (2 x 100 mg) PO BID #60 caps 06/21/22 fluticasone propionate 50 1 spray intranasal Q12H 30 days #1 06/21/22 mcg/actuation nasal ea spray,suspension (Flonase Allergy Relief) gabapentin 800 mg tablet 800 mg PO TID@08,12,20 30 days #90 06/21/22 tabs pantoprazole 40 mg tablet,delayed 40 mg PO DAILY #30 tabs 06/21/22 release (Protonix) sucralfate 1 gram tablet (Carafate) 1 g PO TID 30 days #90 tabs 06/21/22 nitroglycerin 0.4 mg sublingual 0.4 mg sublingual Q5M PRN Chest 07/31/22 tablet (Nitrostat) Pain #30 tabs losartan 50 mg tablet 50 mg PO DAILY #100 tabs 10/04/23 Allergies Allergy/AdvReac Type Severity Reaction Status Date / Time atenolol AdvReac Mild ADV-Weaknes Verified 05/14/24 14:07 s Review of Systems 2 Const: Denies: fever(s) or chills Card: Denies: chest pain Resp: Denies: dyspnea GI: Denies: abdominal pain : Denies: dysuria, urinary frequency or urinary urgency Musc: Denies: neck pain or back pain Skin/Breast: Denies: rash PFSH ED 2 PFSH: Medical History Cigarette smoker motivated to quit Bradycardia Nocturnal hypoxemia Dyslipidemia Chronic neck and back pain Hypertension COPD (chronic obstructive pulmonary disease) Environmental and seasonal allergies GERD (gastroesophageal reflux disease) Essential hypertension Hearing loss Bilateral subjective nonpulsatile tinnitus without hearing loss, otoscopic finding, neurologic deficit, or head trauma Chronic eustachian tube dysfunction Anxiety Hepatitis C Facet arthropathy, lumbosacral Surgical History H/O esophagogastroduodenoscopy (04/13/21) normal Status post colonoscopy History of neck surgery Hx of hand surgery History of lymph node excision Family History Father Postsurgical cardiac pacemaker in situ CAD (coronary artery disease) Clotting disorder Cancer Mother Cancer CAD (coronary artery disease) Diabetes Lung disease Stroke Brother CAD (coronary artery disease) Grandfather Cancer Family/Other Cancer Dementia Denies family history of Chronic kidney disease (CKD) Suicide Anesthesia complication Bleeding disorder Social History Smoking and tobacco/nicotine status: current every day tobacco/nicotine user cigarettes Packs smoked per day: 0.5 Quit status (tobacco/nicotine): has tried quititng Alcohol intake: never Substance/Drug Use: never Lives independently: Yes Household members: spouse Marital status: Current occupational status: disabled Do you think of yourself as: Straight/Heterosexual Current gender identity: Male Physical Exam 2 Const: GENERAL APPEARANCE: cooperative ORIENTATION/CONSCIOUSNESS: Yes awake, Yes oriented to person, Yes oriented to place and Yes oriented to time HENMT: COMMON NORMALS: normocephalic, atraumatic and hearing grossly normal bilaterally HEAD & SCALP: normocephalic and atraumatic Resp: COMMON NORMALS: normal respiratory effort, No retractions, No use of accessory muscles and clear to auscultation bilaterally AUSCULTATION: clear to auscultation bilaterally Cardio: COMMON NORMALS: regular rate, regular rhythm and No murmurs present (Cardio) RATE: regular rate RHYTHM: regular rhythm GI: COMMON NORMALS: Soft to palpation and No hepatosplenomegaly present A USCULTATION: Yes normoactive bowel sounds PALPATION: Yes Soft to palpation, No Tenderness to palpation present (GI), No Guarding due to palpation present (GI) and Yes No hepatosplenomegaly present Extremity: COMMON NORMALS: normal to inspection, capillary refill normal, no clubbing, cyanosis or edema, no calf tenderness and no pedal edema Neuro: SENSORIUM/ORIENTATION: Yes oriented to person, Yes oriented to place and Yes oriented to time Skin: COMMON NORMALS: no rashes or lesions noted GENERAL SKIN EXAM: no rashes or lesions noted Course 2 Vital Signs: Vital signs: Vital Signs Temperature 97.9 F 05/14/24 14:04 Pulse Rate 67 05/14/24 18:21 Blood Pressure 122/77 05/14/24 16:40 Pulse Oximetry 100 05/14/24 18:21 Oxygen Delivery Me thod Room Air 05/14/24 18:21 [facility] - General Adult Medical Decision Making Patient seen for report of elevated blood pressure. His blood pressure while here has not been significantly elevated. Cardiac enzymes negative chest x-ray unremarkable discharge home follow-up with primary care Lab Data 05/14/24 14:59 05/14/24 14:59 Radiology Impressions Chest X-Ray 05/14/24 14:50 IMPRESSION: Mild basilar atelectasis or scarring. Laboratory Results WBC 6.91 10^3/uL (3.29-11.43) 05/14/24 14:59 RBC 4.48 10^6/uL (3.85-5.65) 05/14/24 14:59 Hgb 13.80 g/dL (11.27-16.99) 05/14/24 14:59 Hct 41.6 % (37-53) 05/14/24 14:59 MCV 92.9 fl (82-101) 05/14/24 14:59 MCH 30.8 pg (27-33) 05/14/24 14:59 MCHC 33.2 g/dL (30-55) 05/14/24 14:59 RDW 12.1 % (12.1-15.1) 05/14/24 14:59 Plt Count 221 10^3/cmm (157-399) 05/14/24 14:59 MPV 9.6 fL (7.4-10.4) 05/14/24 14:59 Neut % (Auto) 57.1 % 05/14/24 14:59 Lymph % (Auto) 31.5 % 05/14/24 14:59 [facility] % (Auto) 6.8 % 05/14/24 14:59 Eos % (Auto) 4.2 % 05/14/24 14:59 Baso % (Auto) 0.3 % 05/14/24 14:59 Neut # (Auto) 3.94 10^3/uL (1.8-7.7) 05/14/24 14:59 Lymph # (Auto) 2.2 10^3/uL (0.8-4.8) 05/14/24 14:59 [facility] # (Auto) 0.5 10^3/uL (0.2-0.9) 05/14/24 14:59 Eos # (Auto) 0.3 10^3/uL (0.0-0.8) 05/14/24 14:59 Baso # (Auto) 0.0 10^3/uL (0.0-0.1) 05/14/24 14:59 Nucleated RBC % (auto) 0 % 05/14/24 14:59 Nucleated RBCs # 0.0 /100WBC 05/14/24 14:59 Sodium 138 mmol/L (136-145) 05/14/24 14:59 Potassium 4.6 mmol/L (3.5-5.1) 05/14/24 14:59 Chloride 100 mmol/L (98-107) 05/14/24 14:59 Carbon Dioxide 32 mmol/L (22-29) H 05/14/24 14:59 Anion Gap 10.6 (5-19) 05/14/24 14:59 BUN 11 mg/dL (8-23) 05/14/24 14:59 Creatinine 1.0 mg/dL (0.7-1.2) 05/14/24 14:59 GFR Calculation 75.2 mL/min (90-130) L 05/14/24 14:59 Glucose 80 mg/dL (65-115) 05/14/24 14:59 Calculated Osmolality 284 mOsm/kg (285-295) L 05/14/24 14:59 Calcium 9.9 mg/dL (8.5-10.5) 05/14/24 14:59 Total Bilirubin 0.3 mg/dL (0.15-1.2) 05/14/24 14:59 AST 27 U/L (0-40) 05/14/24 14:59 ALT 26 U/L (0-41) 05/14/24 14:59 Alkaline Phosphatase 86 U/L (40-130) 05/14/24 14:59 Troponin T Baseline 13 ng/L (0-15) 05/14/24 14:59 Troponin T 120 Minute 11.12 ng/L (0-15) 05/14/24 16:52 Delta Troponin T -1.88 ABS# (0-10) L 05/14/24 16:52 Total Protein 6.8 g/dL (6.6-8.7) 05/14/24 14:59 Albumin 4.4 g/dL (3.5-5.2) 05/14/24 14:59 Globulin 2.4 g/dL (1.3-4.6) 05/14/24 14:59 Lipase 37 U/L (13-60) 05/14/24 14:59 All radiology interpretation(s) finalized by discharge Discharge Plan Discharge Patient Disposition: Home Clinical Impression: Essential hypertension Condition: Stable Prescriptions: No Action nitroglycerin [Nitrostat] 0.4 mg tablet, sublingual 0.4 mg SUBLINGUAL Q5M PRN (Reason: Chest Pain) Qty: 30 2RF albuterol sulfate 90 mcg/actuation HFA aerosol inhaler 2 puff inhalation Q6H PRN (Reason: shortness of breath or wheezing) 30 Days Qty: 8.5 5RF pantoprazole [Protonix] 40 mg tablet,delayed release (DR/EC) 40 mg PO DAILY Qty: 30 5RF gabapentin 800 mg tablet 800 mg PO TID@08,12,20 30 Days Qty: 90 5RF fluticasone propionate [Flonase Allergy Relief] 50 mcg/actuation spray,suspension 1 spray INTRANASAL Q12H 30 Days Qty: 1 5RF Rx Instructions: USE AT 0800, 1999 celecoxib [Celebrex] 100 mg capsule 200 mg PO BID Qty: 60 5RF sucralfate [Carafate] 1 gram tablet 1 g PO TID 30 Days Qty: 90 5RF losartan 50 mg tablet 50 mg PO DAILY Qty: 100 3RF Trelegy Ellipta 100-62.5-25 mcg blister with device 1 inh INHALATION DAILY atorvastatin 40 mg tablet 40 mg PO DAILY atenolol 25 mg tablet 25 mg PO QAM amlodipine 2.5 mg tablet 2.5 mg PO DAILY buprenorphine-naloxone 8-2 mg Film 0.5 film BUCCAL TID PRN (Reason: overdose) Discharge Orders: Discharge ED (Routine); Ordered 05/14/24 Ordered By: Ruthann Joaquin Referrals: Tyra Tipton, SIGN OUT CLERK-C [Primary Care Provider] - Patient Instructions: Opioid Safety, Pain Management Activity Restrictions/Additional Instructions: Thank you for choosing [facility] for your healthcare needs today. Please realize this is an emergency room and that we are providing you with a medical screening exam and this may not be complete and all inclusive of all the testing and or work up that you may need to determine your ailment or severity of your illness. You have been screened and evaluated and felt safe for discharge. Health conditions do change or evolve sometimes and as such it is important that you follow up with your Primary Doctor to be re checked, 3-5 days is a general good time frame for follow up. You are always welcome to return to the ED for re assessment if your symptoms are worsening or you have new concerns Coding Level of Care Code ED Load Dispatcher for Disha Shah
[2024-05-14 16:40] VITALS: BP 122/77
--- NOTE | 2024-05-14 17:15 | ECG_ITS ---
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 Measurements Intervals Gooding Rate: 44 P: 61 CA: 180 QRS: 67 QRSD: 89 T: 62 QT: 437 QTc: 376 Interpretive Statements SINUS BRADYCARDIA Compared to ECG 05/14/2024 13:59:10 Myocardial infarct finding no longer present Electronically Signed On 05-14-2024 17:57:44 FAMILY CONSULTANT by Miki Lawrence M.D. [id number]
[2024-05-14 17:26] LABS: Troponin 5 2HR 11.12 ng/L (0-15)
[2024-05-14 17:27] LABS: Troponin 5 2HR Delta -1.88 ABS# (0-10)
[2024-05-14 18:21] VITALS: PULSE 67; O2SAT 100
== END 2024-05-14 18:35 | disposition home or self-care (01) ==
PROVIDERS: Emergency Medicine; Emergency Provider Family Medicine; PCP Nurse Practitioner Family
DX: I10 Essential (primary) hypertension (principal); F17.210 Nicotine dependence, cigarettes, uncomplicated; E78.5 Hyperlipidemia, unspecified; J44.9 Chronic obstructive pulmonary disease, unspecified
CPT/HCPCS: 36415; 71045; 80053; 83690; 84484; 85025; 93005; 99285

== ENCOUNTER → 2024-06-12 09:42 | Outpatient (BNVA) | payer MEDICARE, MEDICAID, SELFPAY | PROVIDERS: PCP Nurse Practitioner Family; Visit Provider Nurse Practitioner Family | DX: R07.9 Chest pain, unspecified (principal); F17.200 Nicotine dependence, unspecified, uncomplicated | CPT/HCPCS: 93005; 99214 ==

== ENCOUNTER 2024-06-22 09:51 | Outpatient (CLI) | payer MEDICARE, MEDICAID, SELFPAY ==
[2024-06-22 09:57] VITALS: BMI 25.1
--- NOTE | 2024-06-22 10:09 | ECG_ITS ---
[facility] Test Date: 2024-06-22 Pat Name: Scar Lewis Department: Room: Gender: Male Assisted Living Administrator: : 1960 Requested By: Sharita Leach Order Number: [id number] Chris MD: ANGELA WILDER Interpretive Statements Lung unchanged pre/post procedure; Intraprocedure shortess of breath; Symptoms resoled by discharge EXERCISE DATA: The patient was exercised by Ramy protocol. Baseline heart rate was 65 beats per minute. Baseline blood pressure was 121/78 millimeters of mercury. Target heart rate was 156 beats per minute. Maximum heart rate achieved was 139, which was 89 % of the target heart rate. Maximum blood pressure was 208/87 millimeters of mercury. Total exercise time was 7 minutes 51 seconds. Maximum METs achieved was 10.2, maximum VO2 was 35.7. The reason for ending the test was maximum effort achieved. The patient complained of shortness of during the stress test, which then resolved at the end of the test. ELECTROCARDIOGRAM: BASELINE: Showed sinus rhythm, normal axis, no significant ST-T changes at the baseline noted. EXERCISE: At the peak exercise level, inferolateral ST-T mild depression noted which was upsloping RECOVERY: During the recovery period in the first minute inferolateral mild ST depression which was upsloping immediately resolved, heart rate dropped appropriately. No significant ST-T changes in the recovery suggestive of ischemia noted. CONCLUSION: 1. Exercise capacity fair. 2. Heart rate response was appropriate. 3. Blood pressure response was hypertensive. 4. Symptoms not suggestive of ischemia. 5. Electrocardiogram portion of the stress test was not suggestive of ischemia. Electronically Signed On 07-13-2024 21:21:12 DEICER TESTER by ANGELA WILDER [email or web address]
--- NOTE | 2024-06-22 10:10 | NMCV_ITS ---
NM joo perf SPECT r/s* [id number] Scar Lewis Age: 63 Gender: M : 1960 Exam Date: 06/22/2024 10:56 Ordering Phys: Sharita Leach Technologist: BRADFORD Torres Exam Location: [facility] Indications: cp STRESS TEST [facility] IMAGE PROTOCOL Rest/Stress 1 Lexiscan Day Radiopharmaceutical Dose (mCi) Administration Site Administered by Rest: Tc-99m 10.3 IV Lisa Alvarado, VP DELIVERY Sestamibi Stress:Tc-99m 32.4 IV Lisa Contrerasgle, VP DELIVERY Sestamibi Rest: 22-Jun-2024 60 Discovery 630 Stress: 22-Jun-2024 30 Discovery 630 0.4mg Lexiscan. Images obtained in supine and prone position. SPECT RESULTS Technical Quality: Good Raw Data Analysis: Normal Image Corrections: No attenuation or motion correction applied Summed Stress Score: 0 Summed Rest Score: 2 Summed Difference Score: 0 PERFUSION FINDINGS Medium sized area of fixed perfusion defect noted in the basal to mid inferior inferoseptal and inferolateral wall on both rest and stress images suggestive of old myocardial infarction versus artifact. In the absence of wall motion abnormality most likely it is an artifact FUNCTIONAL RESULTS (calculated via Gated SPECT) Stress Image LV EF (%): 72 Stress EDV (mL):76 TID: 0.77 Stress ESV (mL):21 FUNCTIONAL FINDINGS: There is normal left ventricular systolic function. IMPRESSIONS This study is negative for ischemia low probability for obstructive coronary artery disease Ilana Thompson MD (Electronically Signed) Final Date: 22 June 2024 13:35 S
[2024-06-22 11:40] VITALS: BP 169/85; PULSE 90
== END 2024-06-22 09:52 | disposition home or self-care (01) ==
LOC: CDL 09:52
PROVIDERS: PCP Nurse Practitioner Family; Visit Provider Nurse Practitioner Family
DX: R07.9 Chest pain, unspecified (principal); R93.1 Abnormal findings on diagnostic imaging of heart and coronary circulation
CPT/HCPCS: 36415; 78452; 93017; A9500

== ENCOUNTER → 2024-06-29 13:10 | Outpatient (BNVA) | payer MEDICARE, MEDICAID, SELFPAY | PROVIDERS: PCP Nurse Practitioner Family; Visit Provider Nurse Practitioner Family | DX: R07.89 Other chest pain (principal); F17.210 Nicotine dependence, cigarettes, uncomplicated | CPT/HCPCS: 99213 ==

== ENCOUNTER 2024-07-06 12:45 | Outpatient (CLI) | payer MEDICARE, MEDICAID, SELFPAY ==
--- NOTE | 2024-07-06 12:45 | USCV_ITS ---
Scar Lewis Age: 63 Gender: M : 1960 Exam Date: 07/06/2024 12:56 Ordering Phys: Sharita Leach Technologist: Exam [place] [facility] [place]ication: cp BP: 140 / 80 HR: 58 Rhythm: Sinus Technical Quality: Adequate MEASUREMENTS (Male / Female) Normal Values 2D ECHO LV Diastolic Diameter PLAX 4.9 cm 4.2 - 5.9 / 3.9 - 5.3 cm IVS Diastolic Thickness 1.1 cm 0.6 - 1.0 / 0.6 - 0.9 cm IVS Systolic Thickness 1.5 cm LVPW Diastolic Thickness 1.4 cm 0.6 - 1.0 / 0.6 - 0.9 cm LVPW Systolic Thickness 1.3 cm LVOT Diameter 2.0 cm LV Ejection Fraction 2D Teich 65.3 % LV Ejection Fraction MOD 4C 74.2 % LA Diameter 4.0 cm RA Systolic Volume 4C AL 47.1 ml RA Systolic Volume 4C MOD 44.7 ml Aorta at Sinotubular Diameter 3.5 cm IVC Diameter 1.6 cm M-MODE LA Ao Ratio MM 1.2 AV Cusp Separation MM 1.9 cm DOPPLER AV Peak Velocity 140.0 cm/s LVOT Peak Velocity 102.0 cm/s AV Area Cont Eq vti 2.8 cm squared AV Area Cont Eq pk 2.4 cm squared MV Peak Velocity 86.0 cm/s MV Area PHT 3.1 cm squared Mitral E to A Ratio 7.2 TR Peak Velocity 220.0 cm/s TR Peak Gradient 19.4 mmHg TV Peak E Velocity 65.0 cm/s PV Peak Velocity 104.0 cm/s FINDINGS Left Ventricle Normal left ventricular size, systolic function and wall thickness, with no regional wall motion abnormalities. Left ventricular ejection fraction is estimated at 60 %. Grade I/IV diastolic dysfunction (abnormal relaxation filling pattern), normal to mildly elevated filling pressures. Right Ventricle The right ventricle is normal in size and function. Right Atrium The right atrium is normal in size. Left Atrium The left atrium is normal in size. Mitral Valve Structurally normal mitral valve without significant stenosis or prolapse. There is no mitral regurgitation. Aortic Valve Structurally normal aortic valve without significant sclerosis or stenosis. There is no aortic regurgitation. Tricuspid Valve Structurally normal tricuspid valve without significant stenosis or regurgitation. Pulmonary artery systolic pressure is normal. Pulmonic Valve Structurally normal pulmonic valve without significant stenosis. There is no pulmonic regurgitation. Pericardium Normal pericardium without effusion. Aorta Normal ascending aorta dimension. IVC The inferior vena cava appears normal. CONCLUSIONS Normal left ventricular size, systolic function and wall thickness, with no regional wall motion abnormalities. Left ventricular ejection fraction is estimated at 60 %. Grade I/IV diastolic dysfunction (abnormal relaxation filling pattern), normal to mildly elevated filling pressures. No significant valve abnormalities. There is no pericardial effusion. Right atrial pressure is around 5 mm of mercury. Ilana Thompson MD (Electronically Signed) Final Date: 07 July 2024 00:54 S
== END 2024-07-06 12:46 | disposition home or self-care (01) ==
PROVIDERS: PCP Nurse Practitioner Family; Visit Provider Nurse Practitioner Family
DX: F17.200 Nicotine dependence, unspecified, uncomplicated (principal); I10 Essential (primary) hypertension; R07.9 Chest pain, unspecified; R93.1 Abnormal findings on diagnostic imaging of heart and coronary circulation
CPT/HCPCS: 93306

== ENCOUNTER → 2024-09-21 15:14 | Outpatient (BNVA) | payer MEDICARE, MEDICAID, SELFPAY | PROVIDERS: PCP Nurse Practitioner Family; Visit Provider Internal Medicine Cardiovascular Disease | DX: R06.00 Dyspnea, unspecified (principal); I10 Essential (primary) hypertension; E78.5 Hyperlipidemia, unspecified; R00.1 Bradycardia, unspecified; F17.219 Nicotine dependence, cigarettes, with unspecified nicotine-induced disorders | CPT/HCPCS: 99214 ==

== ENCOUNTER 2024-10-21 09:49 | Outpatient (CLI) | payer MEDICARE, MEDICAID, SELFPAY ==
--- NOTE | 2024-10-21 09:52 | CT_ITS ---
WS: [id number] LDCT LUNG CANCER SCREENING TECHNIQUE: Noncontrast CT of the chest with coronal and sagittal reformatted images. CLINICAL INFORMATION: NICOTINE DEPENDENCE,CIGARETTES COMPARISON: 2022 DLP: 61.61 mGy.cm DIvol: Mean CTDIvol: 1.30 (mGy) All CT scans at [facility] use at least one of these dose optimization techniques: automated exposure control; mA and/or kV adjustment per patient size (includes targeted exams where dose is matched to clinical indication); or iterative reconstruction. FINDINGS: No new suspicious pulmonary parenchymal abnormalities. Moderate to advanced chronic emphysematous changes similar to previous. Subsegmental atelectasis RIGHT lower lobe. Tiny RIGHT pleural effusion. 3 mm noncalcified nodule RIGHT upper lobe along the fissure. Stable 5 mm noncalcified nodule LEFT upper lobe anteriorly Mild aortic calcification. Normal caliber thoracic aorta. No mediastinal or hilar lymphadenopathy. No axillary lymphadenopathy. Moderate thoracic kyphosis. A few Schmorl's nodes in the mid thoracic spine. CT/CT lung screening [id number] IMPRESSION: LUNG-RADS: 2-Benign Appearance or Behavior FOLLOW UP: 12 Month: Continue annual screening with LDCT
== END 2024-10-21 09:50 | disposition home or self-care (01) ==
PROVIDERS: PCP Nurse Practitioner Family; Visit Provider Nurse Practitioner Family
DX: Z12.2 Encounter for screening for malignant neoplasm of respiratory organs (principal); F17.210 Nicotine dependence, cigarettes, uncomplicated; J43.8 Other emphysema; J98.11 Atelectasis; R91.8 Other nonspecific abnormal finding of lung field; I70.0 Atherosclerosis of aorta; M40.294 Other kyphosis, thoracic region; M51.44 Schmorl's nodes, thoracic region
CPT/HCPCS: 71271

== ENCOUNTER → 2025-02-16 14:47 | Outpatient (BNVA) | payer MEDICARE, MEDICAID, SELFPAY | PROVIDERS: PCP Nurse Practitioner Family; Visit Provider Student in an Organized Health Care Education/Training Program | DX: M25.511 Pain in right shoulder (principal); M19.011 Primary osteoarthritis, right shoulder | CPT/HCPCS: 73030; 99204 ==

== ENCOUNTER 2025-03-10 09:57 | Outpatient (CLI) | payer MEDICARE, MEDICAID, SELFPAY ==
--- NOTE | 2025-03-10 10:15 | MR_ITS ---
WS: [id number] 1. MRI RIGHT SHOULDER NONCONTRAST TECHNIQUE: Sagittal T2, coronal T1, T2 and proton density imaging. Axial gradient PDE imaging. CLINICAL INFORMATION: right shoulder injury COMPARISON: 08/09/2023 FINDINGS: Advanced arthritis AC joint with chronic appearing widening with associated fluid and synovial thickening. Severe narrowing of the subacromial space. High- grade complete tears of the supraspinatus and infraspinatus with tendon retraction to the level of the glenohumeral joint. Teres minor appears intact. Tendinopathy with interstitial tears involving the subscapularis tendon. Biceps tendon is chronically torn and absent from the bicipital groove. Advanced degenerative narrowing glenohumeral articulation with subchondral cystic changes. Tendinopathy intra-articular biceps tendon. Small joint effusion. Subcoracoid fluid. Degenerative edema involving the humeral head and glenoid with subchondral cystic changes. MR/MR shoulder RT wo con* [id number] IMPRESSION: 2. Markedly advanced degenerative arthritis RIGHT shoulder continues to progre ss with new high-grade complete tears of the supraspinatus and infraspinatus wi th tendon retraction described above. 3. Biceps tendon is absent from the bicipital groove and chronically torn. 4. Advanced narrowing glenohumeral articulation with subchondral cystic change and edema. Small joint effusion. 5. Advanced degenerative arthritis AC joint with fluid and edema. Chronic appe aring widening of the AC joint likely due to prior injury.
== END 2025-03-10 09:58 | disposition home or self-care (01) ==
LOC: RAD 09:58
PROVIDERS: PCP Nurse Practitioner Family; Visit Provider Student in an Organized Health Care Education/Training Program
DX: M75.101 Unspecified rotator cuff tear or rupture of right shoulder, not specified as traumatic (principal); M19.011 Primary osteoarthritis, right shoulder
CPT/HCPCS: 73221

== ENCOUNTER → 2025-04-07 10:08 | Outpatient (BNVA) | payer MEDICARE, MEDICAID, SELFPAY | PROVIDERS: PCP Nurse Practitioner Family; Visit Provider Student in an Organized Health Care Education/Training Program | DX: Z09 Encounter for follow-up examination after completed treatment for conditions other than malignant neoplasm (principal); M19.019 Primary osteoarthritis, unspecified shoulder | CPT/HCPCS: 99213 ==